=== PATIENT | female | born 1975 | race Caucasian/White ===

== ENCOUNTER → 2016-07-14 | Outpatient (CLI) | payer OTHER ==
[2016-07-14 16:25] LABS: EKG EKG PERFORMED
[2016-07-14 17:04] LABS: Basophils # (A) 0.1 k/uL (0-0.2); Basophils % (A) 1 %; CH 31.6; CHCM 33.6; Eosinophils # (A) 0.3 k/uL (0-0.7); Eosinophils % (A) 5 %; HCT 42.5 % (34.0-46.0); HDW 2.65; HGB 13.8 gm/dL (11.4-16.0); Luc # (Auto) 0.11; Luc % (Auto) 2; Lymphocytes # (A) 1.7 k/uL (1.0-4.8); Lymphocytes % (A) 29 %; MCH 30.6 pg (25.0-35.0); MCHC 32.4 g/dL (31.0-37.0); MCV 94.3 fL (80.0-100.0); Mean Platelet Volume 9.1; Monocytes # (A) 0.2 k/uL (0-1.0); Monocytes % (A) 4 %; Neutrophils # (A) 3.5 k/uL (1.3-7.7); Neutrophils % (A) 59 %; RBC 4.51 m/uL (3.80-5.40); RDW 12.4 % (11.5-15.5); WBC 5.8 k/uL (3.8-10.6); WBC (Perox) 5.89
[2016-07-14 17:19] LABS: ALT 43 U/L (9-52); AST 30 U/L (14-36); Alkaline Phosphatase 56 U/L (38-126); Anion Gap 11 mmol/L; Blood Urea Nitrogen 13 mg/dL (7-17); Calcium 8.9 mg/dL (8.4-10.2); Carbon Dioxide 29 mmol/L (22-30); Chloride 104 mmol/L (98-107); Glucose 116 mg/dL (74-99); Non-African American GFR(MDRD) >60 (>60 ml/min/1.73 sqM); Potassium 3.7 mmol/L (3.5-5.1); Sodium 144 mmol/L (137-145); Total Bilirubin 0.4 mg/dL (0.2-1.3); Total Protein 6.2 g/dL (6.3-8.2)
== END | disposition home or self-care (01) ==
LOC: LABPAT 16:11
PROVIDERS: ATTEND Surgery Plastic and Reconstructive Surgery
DX: Z01.818 Encounter for other preprocedural examination (principal)
CPT/HCPCS: 80053; 85025; 93005

== ENCOUNTER → 2016-07-22 | Outpatient (CLI) | payer OTHER | LOC: LABWHC1 10:24 | PROVIDERS: ATTEND Nurse Practitioner | DX: F31.5 Bipolar disorder, current episode depressed, severe, with psychotic features (principal) | CPT/HCPCS: 36415; 80183 ==

== ENCOUNTER 2016-07-25 08:36 | Observation (INO) | payer OTHER ==
[2016-07-14 14:53] VITALS: BMI 22.7
--- NOTE | 2016-07-25 06:14 | P.GSHP ---
History of Present Illness H&P Date: 07/25/16 DATE OF SERVICE: 07/25/2016 CHIEF COMPLAINT: Gastric bypass. HISTORY OF PRESENT ILLNESS: Jacinda Diamond is a 41-year-old female who is status post Misty-en-Y gastric bypass in June of 2015. Her lifetime highest weight was 309 pounds. Her ideal body weight is 5 foot 6 frame is 154 pounds. She has lost over 165 pounds. Percent excess weight loss is over 107%. Body mass index has been reduced from 50 down to 22.8. She comes in with history of recurrent panniculitis despite medical and prescribed treatment for over 1 year. Now she presents for further evaluation and management. Separately, she does have chronic lower back pain from degenerative disc disease. She does also have epigastric abdominal pain from a symptomatic hernia which had been present prior to her surgical intervention and bariatric procedures. PAST MEDICAL HISTORY: 1. Moderate obesity. 2. Anxiety. 3. Depression. 4. Osteoarthritis of the lower back. 5. Osteoarthritis of the bilateral hips. 6. Panniculitis. 7. Gastroesophageal reflux disease. 8. Posttraumatic stress disorder. 9. Neuropathy of the lower extremities. 10. Panniculitis. PAST SURGICAL HISTORY: 1. section. 2. Cholecystectomy. 3. Peg tube. 4. History tracheostomy secondary to vent-dependent respiratory failure. 5. Upper endoscopy with balloon dilatation. 6. Status post Misty-en-Y gastric bypass. 7. Diagnostic laparoscopy, lysis of adhesions. MEDICATIONS: 1. Lyrica. 2. Naproxen. 3. Amitriptyline. 4. [place]. 5. Neurontin. 6. Vitamin D. 7. Calcium. 8. Fioricet. 9. Multivitamin. 10. Prilosec. 11. Nystatin powder. 12. Thiamine. 13. Vitamin A. ALLERGIES: CODEINE, EGGS, GUAIFENESIN, VICODIN, DEMEROL, OXYCONTIN, PENICILLIN, DARVOCET, ASPIRIN. SOCIAL HISTORY: Former tobacco use. FAMILY HISTORY: Notable for morbid obesity including diabetes. REVIEW OF SYSTEMS: MUSCULOSKELETAL: Has severe lower back pain. CONSTITUTIONAL: Her lifetime highest weight was 309 pounds. Her ideal body weight is 5 foot 6 frame is 154 pounds. She has lost 165 pounds. Percent excess weight loss is [id number]%. Body mass index has been reduced from 50 down to 22.8. GASTROINTESTINAL: No reports of dumping syndrome. Resolved gastroesophageal reflux disease. Migraines, now resolved. SKIN: History of chronic panniculitis of the umbilicus and the abdomen. ENDOCRINE: No reports of diabetes or hypothyroidism. RESPIRATORY: Prior history of vent-dependent respiratory failure. No recent known history of pneumonia. Upper respiratory, resolution of obstructive sleep apnea. CARDIOVASCULAR: No reports of chest pain or palpitations. NEURO: No reports of stroke. Has pinched nerve of the lower back pending nerve ablation. PSYCH: No reports of psychosis; however, history of depression. HEMATOLOGIC: No recent history of coagulopathy or blood clots. PHYSICAL EXAM: VITAL SIGNS: 98.8, 77, 16, 118/81, 5 foot 6, 141 pounds. Body mass index of 22.8. Percent excess weight loss 109%. ABDOMEN: Soft with a palpable and epigastric ventral hernia approximately 4 cm. Pannus extends over pubis by 7 cm of hyperemia. Moderate to severe skin elastosis of the abdomen including bilateral upper extremities. GENERAL: Well-developed, pleasant female, no acute distress. HEENT: No sclerae icterus. Extraocular movements grossly intact. Well-healed scar from prior tracheostomy. No nasal drainage. RESPIRATORY: Nonlabored respirations. Equal bilateral excursions. CARDIOVASCULAR: Regular rate and regular rhythm. Palpable 2+ radial pulses. MUSCULOSKELETAL: No clubbing, cyanosis, or edema. NEURO: There are no focal or lateralizing signs. PSYCH: Appropriate affect. Alert and oriented to person, place and time. LABS: Bariatric metabolic panel obtained with hemoglobin normal at 13.2. Hemoglobin A1c was normal at 4.4. Iron was normal at 93. Total protein was low at 6.2. Ferritin was elevated at 196. Vitamin A was low at 29. Vitamin D low at 27.6. Copper low at 736. ASSESSMENT: 1. Morbid obesity due to excess caloric intake. 2. Body mass index reduced lifetime of 50 down to 22.8. 3. Status post Misty-en-Y gastric bypass. 4. Status post massive weight loss of buog461 pounds. 5. Panniculitis. 6. History of dysphagia, now resolved. 7. History of obstructive sleep apnea, improving. 8. Osteoarthritis of the lower back, slowly improving. 9. Osteoarthritis of the bilateral hips, improving. 10. Secondary hyperparathyroidism. 11. Copper deficiency. 12. Vitamin D deficiency. 13. Elevated Ferritin. 14. Elevated AST and ALT. 15. Panniculitis. 16. Epigastric incarcerated hernia. 17. Vitamin A deficiency. 18. Thiamine deficiency. 19. Copper deficiency. 20. Hypoalbuminemia. PLAN: 1. Her bariatric metabolic panel has been obtained demonstrating total protein which is fairly low despite her albumin remaining 3.9. We will recommend strict protein intake of over 65 to 70 gm daily. 2. She does have epigastric abdominal wall hernia, including moderate pannus, with panniculitis. She is being treated for panniculitis for well over 1-1/2 to 2 years. She will benefit from panniculectomy. 3. Inpatient hospitalization greater than 2 nights advised. 4. Deep venous thrombosis prophylaxis. 5. Antibiotic prophylaxis. 6. Benefits and risks of panniculectomy including bleeding, infection, flap failure, abdominal wall trauma, need for further surgery were reviewed in detail. 7. LINDA drain management was also reviewed. 8. Recommend correction of nutritional deficiencies with a vitamin A supplement of at least 8000 units daily or increasing carrots or cantaloupes. 9. Also recommend correction of vitamin D deficiency. 10. Also need correction of her copper deficiency as well. 11. Recommend an increase of multivitamin intake. 12. Also recommend cholecysteramine for her abdominal pain. Past Medical History Past Medical History: GERD/Reflux, Rheumatoid Arthritis (RA) Additional Past Medical History / Comment(s): migraines, bilateral neuropathy( legs and hands)- legs can give out causing falls, hx IBS, hx swine flu 2008- was vented, varicose veins, History of Any Multi-Drug Resistant Organisms: MRSA Date of last positivie culture/infection: 06/2009 MDRO Source:: LUNGS Past Surgical History: Bariatric Surgery, Section, Cholecystectomy, Tubal Ligation, Uterine Ablation Additional Past Surgical History / Comment(s): 06/22/15 Laparoscopic misty-en-y gastric bypass with EGD. PEG tube/later removed, Tracheostomy, Past Anesthesia/Blood Transfusion Reactions: Motion Sickness, Postoperative Nausea & Vomiting (PONV) Additional Past Anesthesia/Blood Transfusion Reaction / Comment(s): Pt states she has never received blood. Past Psychological History: Anxiety, Bipolar, Depression, PTSD Additional Psychological History / Comment(s): . Smoking Status: Former smoker Past Alcohol Use History: None Reported Additional Past Alcohol Use History / Comment(s): Pt started smoking in 1997 and quit in 2014-she was 1 ppd smoker. Past Drug Use History: None Reported - Past Family History Mother Family Medical History: No Reported History Additional Family Medical History / Comment(s): . Father Family Medical History: Hypertension Additional Family Medical History / Comment(s): Father is living. Medications and Allergies Home Medications Medication Instructions Recorded Confirmed Type Topiramate 50 mg PO BID 02/25/15 07/14/16 History Calcium Carbonate [Calcium] 600 mg PO BID 09/16/15 07/14/16 History Pregabalin [Lyrica] 75 mg PO BID 03/17/16 07/14/16 History Ergocalciferol [Vitamin D2 50,000 unit PO WE 04/14/16 07/14/16 History (DRISDOL)] Butalb/Acetaminophen/Caffeine 2 tab PO BID PRN 07/14/16 07/14/16 History [Fioricet 50-325-40] OXcarbazepine [Trileptal] 300 mg PO BID 07/14/16 07/14/16 History PARoxetine HCL [Paxil] 10 mg PO DAILY 07/14/16 07/14/16 History QUEtiapine [SEROquel] 50 mg PO HS 07/14/16 07/14/16 History Allergies Allergy/AdvReac Type Severity Reaction Status Date / Time guaifenesin [From Robitussin] Allergy WHEEZING Verified 07/14/16 14:37 FROM COUGH SYRUP WITH CODEINE meperidine HCl [From Demerol] Allergy "BECAME Verified 07/14/16 14:37 BELIGERENT" Milk Containing Products Allergy Nausea & Verified 07/14/16 14:37 [Dairy] Vomiting & Diarrhea aspirin AdvReac "MAKES Verified 07/14/16 14:37 BLOOD TOO THIN"
[~2016-07-25 08:36] MED LIST: ACETAMINOPHEN IV (For NPO) 1,000 MG in EMPTY BAG 1 BAG IVPB ONE; ACETAMINOPHEN TAB 500 MG TAB PO ONE; BUPIVACAINE LIPOSOME/PF 1.3% 20 ML, BUPIVACAIN-EPI 0.5%-1:200,000 25 ML, SODIUM CHLORID... MISCELLANE ONE; DEXAMETHASONE SOD PHOSPHATE 10 MG/ML 1 ML VIAL IV ONE; HEPARIN SODIUM,PORCINE 5,000 UNIT/ML 1 ML VIAL SQ ONE; LACTATED RINGERS 1,000 ML IV SCH; LIDOCAINE 1% 20 ML VIAL (10MG/ML) FOR IV START INTRADERMA PRN; ONDANSETRON 4 MG/2 ML VIAL IVP ONE; SCOPOLAMINE 1.5MG/72HR PATCH TRANSDERM ONE; ceFAZolin 2 GM in SODIUM CHLORIDE 0.9% 100 ML IVPB ONE
[2016-07-25] MEDS ORDERED: VANCOMYCIN 1,000 MG in SODIUM CHLORIDE 0.9% 250 ML IVPB ONE (09:00)
[2016-07-25] MEDS ORDERED: MIDAZOLAM 2 MG/2 ML VIAL IV ONE (10:54)
[2016-07-25] MEDS ORDERED: NEOSTIGMINE 1 MG/ML 10 ML VIAL ONE (11:01)
[2016-07-25] MEDS ORDERED: GLYCOPYRROLATE 0.2 MG/ML 2 ML VIAL ONE (11:01)
[2016-07-25] MEDS ORDERED: SUCCINYLCHOLINE CHLORIDE 100 MG/5 ML SYR IV ONE (11:01)
[2016-07-25] MEDS ORDERED: LIDOCAINE 1% INJ 10MG/ML (20 ML MDV) ONE (11:01)
[2016-07-25] MEDS ORDERED: fentaNYL (PF) 50 MCG/ML 2 ML AMP ONE (11:01)
[2016-07-25] MEDS ORDERED: PHENYLEPHRINE-0.9% NACL SYG 1 MG/10 ML SYRINGE ONE (11:01)
[2016-07-25] MEDS ORDERED: PROPOFOL 10 MG/ML 20 ML VIAL IV ONE (11:01)
[2016-07-25] MEDS ORDERED: HYDROmorphone (PF) 1 MG/ML ONE (11:01)
[2016-07-25] MEDS ORDERED: ROCURONIUM BROMIDE 10 MG/ML 10 ML VIAL IV ONE (11:01)
[2016-07-25] MEDS ORDERED: LACTATED RINGERS 1,000 ML IV ONE ×3 (11:55→13:51)
[2016-07-25] MEDS ORDERED: NALOXONE 0.4 MG/ML 1 ML VIAL IV PRN (14:18)
[2016-07-25] MEDS ORDERED: diphenhydrAMINE 50 MG/ML 1 ML VIAL IVP PRN (14:18)
--- NOTE | 2016-07-25 14:18 | P.PCN ---
Date of Procedure: 07/25/16 Preoperative Diagnosis: Panniculitis, excessive skin and subcutaneous tissue, central adiposity, status post massive weight loss over 170 pounds Postoperative Diagnosis: Same, ventral hernia, reducible 9 x 7 cm umbilical/midline Procedure(s) Performed: Panniculectomy, 4.5 pounds with ventral hernia repair, reducible, initial 9 x 7 cm with primary fascial imbrication Anesthesia: GETA, local Surgeon: Janie Mishra Estimated Blood Loss (ml): 600 Pathology: none sent Condition: stable Disposition: floor Operative Findings: Primary fascial indication with reduction of ventral hernia using bilateral muscular cutaneous flap advancement 10 cm long midabdomen, 4.5 pounds panniculectomy
[2016-07-25] MEDS ORDERED: HYDROcodone/APAP 5-325MG 1 EACH TAB PO PRN (14:22)
[2016-07-25] MEDS: HYDROmorphone 1 MG/ML 1 ML SYRINGE IVP PRN ×3 (14:42→17:33)
[2016-07-25] MEDS: 0.9% NACL WITH KCL 20 MEQ/L 1,000 ML IV SCH (17:48)
--- NOTE | 2016-07-25 19:23 | P.OP ---
Date of Procedure: 07/25/16 Description of Procedure: SURGEON: UZIEL THOMPSON MD PREOPERATIVE DIAGNOSES: 1. Morbid obesity due to excess caloric intake, resolved. 2. Body mass index reduced lifetime of 50 down to 22.8. 3. Status post Misty-en-Y gastric bypass. 4. Status post massive weight loss of over 165 pounds. 5. Panniculitis. 6. Osteoarthritis of the lower back, improving. 7. Osteoarthritis of the bilateral hips, improving. 8. Secondary hyperparathyroidism. 9. Copper deficiency. 10. Vitamin D deficiency. 11. Elevated Ferritin. 12. Epigastric initial ventral hernia. 13. Vitamin A deficiency. 14. Thiamine deficiency. 15. Copper deficiency. 16. Hypoalbuminemia. 17. Anxiety. 18. Depression. 19. Posttraumatic stress disorder. 20. Neuropathy of the lower extremities. 21. History of MRSA. 22. Epigastric ventral hernia. POSTOPERATIVE DIAGNOSES: 1. Morbid obesity due to excess caloric intake, resolved. 2. Body mass index reduced lifetime of 50 down to 22.8. 3. Status post Misty-en-Y gastric bypass. 4. Status post massive weight loss of over 165 pounds. 5. Panniculitis. 6. Osteoarthritis of the lower back, improving. 7. Osteoarthritis of the bilateral hips, improving. 8. Secondary hyperparathyroidism. 9. Copper deficiency. 10. Vitamin D deficiency. 11. Elevated Ferritin. 12. Epigastric initial ventral hernia. 13. Vitamin A deficiency. 14. Thiamine deficiency. 15. Copper deficiency. 16. Hypoalbuminemia. 17. Anxiety. 18. Depression. 19. Posttraumatic stress disorder. 20. Neuropathy of the lower extremities. 21. Epigastric ventral hernia, 9 x 7 cm initial and reducible. 22. Localized central adiposity. 23. Excess and redundant abdominal tissue. 24. History of previous MRSA infection. OPERATION: 1. Panniculectomy, 4.5 pounds. 2. Open repair of initial reducible ventral hernia 9 x 7 cm with bilateral musculofascial advancement, 10 cm. ANESTHESIA: General with 85 mL of Exparel with sensorcaine and normal saline mixture. ESTIMATED BLOOD LOSS: 600 mL SPECIMENS REMOVED: Pannus 4.5 pounds. COMPLICATIONS: None. CONDITION: Stable. DRAINS: Two #19 Andrew drains below abdominal flap extending through the pubis. OPERATIVE FINDINGS: 1. Pannus weighing 4.5 pounds, excised. 2. Initial reducible ventral hernia of 9 x 7 cm along the epigastrium and lower midline with bilateral musculofascial advancement, 10 cm. INDICATIONS: The patient is a 41-year-old female status post misty-en-y gastric bypass. She had moderate weight loss. Despite medical therapy with prescription powders such as Nystatin over 1 year, she has developed severe medical refractory panniculitis. Her body mass index has been reduced from approximately 50 down to 22.8. She reports medically refractory panniculitis. She had a ventral hernia of the lower abdomen and identified. Given her clinical symptoms, including massive weight loss, she elected for surgical intervention with a panniculectomy. Benefits and risks of the procedure including bleeding, infection, risk of flap failure were described at length. Informed consent was obtained. DESCRIPTION: In the preanesthesia care unit the patient was marked with an indelible marker. She had also been given heparin subcutaneously. The patient was brought into the operating room and laid in supine position. After general induction, a Hebert catheter was placed. The abdomen was then prepped and draped in standard sterile fashion using ChloraPrep. The skin was prepped as far laterally to the back, inferiorly to the upper thighs and superiorly to above the bilateral breasts. A timeout protocol was confirmed with the surgical team regarding patient's name , procedure to be performed, including preoperative medications. She had received vancomycin antibiotics. Once the time-out protocol was confirmed with the surgical team, the patient was re-marked with indelible marker whereby the midline of the xiphoid to the mons pubis was marked. The anterior/superior iliac spine along the bilateral hips was also marked. Approximately 8 cm above the pubis commissure a transverse incision was made for the inferior portion of the flap. Using a #10 blade, the incision was taken from the midline laterally to above the anterior/superior iliac spine, initially on the left side of the patient and then on the right side of the patient. Electro-Bovie cautery was used to control for hemostasis. The dissection was taken down to the level of the fascia. Landmarks used were the xiphoid process as well as the bilateral costal margins for the superior margin. Care was taken to avoid any creation of dog ears during the dissection. Once hemostasis was checked, a large ventral hernia fascial defect of 9 x 7 cm was identified unrelated to her bariatric procedure. During this dissection, the umbilicus was truncated at its fascial insertion. The umbilicus fascial excision was oversewn using 0 Prolene. Bilateral musculofascial advancement along the midline of the rectus muscle to the lateral insertion was performed obtaining 10 cm width for complete closure of her hernia and using fascial imbrication using #2 Ethibond starting from the xiphoid to pubis. The ventral hernia defect was completely repaired and closed. For postop analgesia , 85 mL of Exparel with sensorcaine and normal saline mixture was infiltrated along the midline and fascia. Hemostasis was once again checked with electro-Bovie cautery and all defects were addressed. Attention was now brought to closure of the flap. Using stainless steel skin emory, the midline was marked of the upper flap as well as the pubic commissure. The patient was placed in a flexed position of approximately 30 degrees at the hips. The pannus was extended inferiorly to the feet. The upper flap was created once the excess skin was excised. Care was taken to avoid any dog ears along the lateral aspect of the incisions. Once excised, the pannus was weighed at 4.5 pounds. The upper and lower flaps were reapproximated at the midline and then laterally to the skin with skin emory. Once reapproximated, the skin was closed in layers using 0 Vicryl for the superficial fascial system followed by running 3- 0 Monocryl for the deep dermis in a running subcuticular fashion. Prior to skin closure, two round #19 Andrew drains were placed underneath the flap and brought out just inferior to the incision along the pubis. Drain stitch using 2-0 nylon was placed. Once the incision was closed, bulb suction was attached. Hemostasis was checked. At the end of the procedure, the needle, sponge and instrument count was verified correct. Dermabond tape with Dermabond liquid was placed along the entire length of the incision. OptiFlow Aquacel Ag dressing was placed once dried along the incision. CHG Tegaderm was placed over the LINDA insertion sites. The patient was then transferred to a hospital bed in a beach chair position. An abdominal binder was placed and marked. The patient was taken to the postanesthesia care unit in stable condition, awake and extubated. Total time for procedure from skin to skin was 156 minutes. Patient was deemed an ASA2. The intraoperative findings were discussed with her who was pleased with the level of care.
[2016-07-25] MEDS: HYDROcodone/APAP 5-325MG 1 EACH TAB PO SCH ×2 (20:43→21:48)
[2016-07-25] MEDS: OXcarbazepine 300 MG TAB PO SCH (21:47)
[2016-07-25] MEDS: QUEtiapine 50 MG TAB PO SCH (21:47)
[2016-07-25] MEDS: PREGABALIN 75 MG CAP PO SCH (21:47)
[2016-07-25] MEDS: TOPIRAMATE 25 MG TAB PO SCH (21:48)
[2016-07-26] MEDS: 0.9% NACL WITH KCL 20 MEQ/L 1,000 ML IV SCH ×3 (02:37→20:54)
[2016-07-26] MEDS: HYDROmorphone 1 MG/ML 1 ML SYRINGE IVP PRN ×3 (02:38→13:24)
[2016-07-26] MEDS: HYDROcodone/APAP 5-325MG 1 EACH TAB PO SCH ×4 (05:47→23:51)
[2016-07-26 07:09] LABS: Basophils % (A) 1 %; CH 31.6; CHCM 34.5; Eosinophils # (A) 0.2 k/uL (0-0.7); Eosinophils % (A) 3 %; HCT 29.1 % (34.0-46.0); HDW 2.78; Luc # (Auto) 0.15; Luc % (Auto) 2; Lymphocytes # (A) 2.4 k/uL (1.0-4.8); Lymphocytes % (A) 31 %; MCH 30.7 pg (25.0-35.0); MCHC 33.3 g/dL (31.0-37.0); Mean Platelet Volume 9.3; Monocytes # (A) 0.4 k/uL (0-1.0); Monocytes % (A) 5 %; Neutrophils # (A) 4.6 k/uL (1.3-7.7); Neutrophils % (A) 59 %; RBC 3.16 m/uL (3.80-5.40); RDW 12.8 % (11.5-15.5); WBC 7.9 k/uL (3.8-10.6); WBC (Perox) 7.78
[2016-07-26 07:23] LABS: HGB 9.7 gm/dL (11.4-16.0)
[2016-07-26] MEDS: OXcarbazepine 300 MG TAB PO SCH ×2 (08:50→22:48)
[2016-07-26] MEDS: PARoxetine 10 MG TAB PO SCH (08:51)
[2016-07-26] MEDS: TOPIRAMATE 25 MG TAB PO SCH ×2 (08:51→22:48)
[2016-07-26] MEDS: PREGABALIN 75 MG CAP PO SCH ×2 (08:52→22:48)
[2016-07-26] MEDS: THIAMINE 100 MG TAB PO SCH (08:52)
[2016-07-26] MEDS: PANTOPRAZOLE 40 MG TABLET PO SCH (14:30)
--- NOTE | 2016-07-26 15:20 | P.PN ---
Subjective 41-year-old female being seen on rounds this afternoon is sitting up in bed. Patient does report continuing to have surgical pain. Patient is willing to restart her [place]. Patient states that she was on [place] at home for pain but stopped it about 6 weeks ago. Currently the patient has been receiving IV pain medication dilaudid Patient is postop from an open repair of initial reducible ventral hernia 9 x 7 cm with bilateral musculofascial advancement, 10 cm. currently has an abdominal binder in place with 2 Keith-Alas drains. Patient states she is tolerating the diet Objective - Vital Signs Vital signs: Vital Signs Temp 98.5 F 07/26/16 11:20 Pulse 64 07/26/16 11:20 Resp 16 07/26/16 11:20 BP 100/66 07/26/16 13:07 Pulse Ox 98 07/26/16 11:20 Intake & Output 07/25/16 07/26/16 07/26/16 18:59 06:59 18:59 Intake Total 3500 1680 250 Output Total 1143 810 45 Balance 2357 870 205 Weight 63.957 kg Intake: IV 3500 Oral 1680 250 Output: Drainage 43 60 45 left suprapubic 3 30 30 right suprapubic 40 30 15 Urine 500 750 Estimated Blood Loss 600 Other: Voiding Method Toilet # Voids 1 1 - Exam Physical exam 41-year-old female sitting up in bed talkative appears in no acute distress states pain medication IV dilaudid has been effective for pain control Lungs essentially clear adequate air movement on room air no cough noted Heart S1-S2 audible and regular Abdomen abdominal binder in place with [address] Keith-[address] in [address] soft not distended no reports of nausea vomiting Extremities no evidence of edema to the upper or lower extremities - Labs CBC & Chem 7: 07/26/16 05:40 Labs: Abnormal Lab Results - Last 24 Hours (Table) 07/26/16 Range/Units 05:40 RBC 3.16 L (3.80-5.40) m/uL Hgb 9.7 L D (11.4-16.0) gm/dL Hct 29.1 L (34.0-46.0) % Plt Count 133 L (150-450) k/uL Microbiology - Last 24 Hours (Table) 07/25/16 10:40 Nasal Screen MRSA/MSSA ([facility]) - Preliminary Nasal Swab Assessment and Plan Plan: impression Morbid obesity due to excess caloric intake, resolved. 2. Body mass index reduced lifetime of 50 down to 22.8. 3. Status post Dariana-en-Y gastric bypass. 4. Status post massive weight loss of over 165 pounds. 5. Panniculitis. 6. Osteoarthritis of the lower back, improving. 7. Osteoarthritis of the bilateral hips, improving. 8. Secondary hyperparathyroidism. 9. Copper deficiency. 10. Vitamin D deficiency. 11. Elevated Ferritin. 12. Epigastric initial ventral hernia. 13. Vitamin A deficiency. 14. Thiamine deficiency. 15. Copper deficiency. 16. Hypoalbuminemia. 17. Anxiety. 18. Depression. 19. Posttraumatic stress disorder. 20. Neuropathy of the lower extremities. 21. Epigastric ventral hernia, 9 x 7 cm initial and reducible. 22. Localized central adiposity. 23. Excess and redundant abdominal tissue. 24. History of previous MRSA infection 25 Panniculectomy, 4.5 pounds.jul 25 2015 26. Open repair of initial reducible ventral hernia 9 x 7 cm with bilateral musculofascial advancement, 10 cm. done on 07/25/2015 Plan Continue postop surgical care Pain control Resume home meds as appropriate Further recommendations pending Anticipate discharge in the next 24-48 hours The above dictated assessment and findings were discussed with [].dr Garcia Impression and the plan of care have been dictated as directed. Renu Locke nurse practitioner acting as a scribe for Dr. Garcia
--- NOTE | 2016-07-26 20:04 | P.PN ---
Progress Note - Text Please see nurse practitioner of which I agree. Patient is tolerating oral pain meds. She is ambulating at least 5 times daily. She reports mild pain along the right lower abdomen which is to be expected given her panniculectomy incision. Skin flap is viable. No signs of ecchymosis. Anticipate discharge tomorrow. Discharge instructions were reviewed for which she and her verbalized understanding.
[2016-07-26] MEDS ORDERED: VANCOMYCIN 1,250 MG in SODIUM CHLORIDE 0.9% 250 ML IVPB STA (20:18)
[2016-07-26] MEDS: QUEtiapine 50 MG TAB PO SCH (22:48)
[2016-07-27 00:43] VITALS: RESP 16
[2016-07-27] MEDS ORDERED: VANCOMYCIN 1,250 MG in SODIUM CHLORIDE 0.9% 250 ML IVPB SCH (06:00)
[2016-07-27] MEDS: 0.9% NACL WITH KCL 20 MEQ/L 1,000 ML IV SCH (06:07)
[2016-07-27] MEDS: HYDROcodone/APAP 5-325MG 1 EACH TAB PO SCH ×2 (06:29→10:44)
[2016-07-27 07:26] VITALS: BP 103/62; TEMP 97
[2016-07-27] MEDS: PANTOPRAZOLE 40 MG TABLET PO SCH (07:29)
[2016-07-27] MEDS: PREGABALIN 75 MG CAP PO SCH (08:11)
[2016-07-27] MEDS: TOPIRAMATE 25 MG TAB PO SCH (08:11)
[2016-07-27] MEDS: OXcarbazepine 300 MG TAB PO SCH (08:11)
[2016-07-27] MEDS: PARoxetine 10 MG TAB PO SCH (08:11)
[2016-07-27] MEDS: THIAMINE 100 MG TAB PO SCH (08:12)
[2016-07-27] MEDS ORDERED: ERGOCALCIFEROL 50,000 UNIT CAP PO SCH (09:00)
[2016-07-27] MEDS ORDERED: MAGNESIUM SULFATE-D5W PMX 1 GM in DEXTROSE/WATER 1 100ML.BAG IVPB STA (09:13)
[2016-07-27 09:53] VITALS: PULSE 54
--- NOTE | 2016-07-27 14:03 | P.DS ---
Providers Date of admission: 07/26/16 12:29 Expected date of discharge: 07/27/16 Attending physician: Janie Mishra Primary care physician: Stated None - Discharge Diagnosis(es) (1) S/P panniculectomy Status: Acute (2) MRSA (methicillin resistant Staphylococcus aureus) colonization Status: Acute (3) Ventral hernia without obstruction or gangrene Status: Acute (4) S/P ventral herniorrhaphy Status: Acute (5) Weight loss, intentional Status: Acute (6) Bariatric surgery status Status: Acute Hospital Course: POSTOPERATIVE DIAGNOSES: 1. Morbid obesity due to excess caloric intake, resolved. 2. Body mass index reduced lifetime of 50 down to 22.8. 3. Status post Misty-en-Y gastric bypass. 4. Status post massive weight loss of over 165 pounds. 5. Panniculitis. 6. Osteoarthritis of the lower back, improving. 7. Osteoarthritis of the bilateral hips, improving. 8. Secondary hyperparathyroidism. 9. Copper deficiency. 10. Vitamin D deficiency. 11. Elevated Ferritin. 12. Epigastric initial ventral hernia. 13. Vitamin A deficiency. 14. Thiamine deficiency. 15. Copper deficiency. 16. Hypoalbuminemia. 17. Anxiety. 18. Depression. 19. Posttraumatic stress disorder. 20. Neuropathy of the lower extremities. 21. Epigastric ventral hernia, 9 x 7 cm initial and reducible. 22. Localized central adiposity. 23. Excess and redundant abdominal tissue. 24. History of previous MRSA infection. COURSE: The patient is a 41-year-old female status post misty-en-y gastric bypass. She had moderate weight loss over 165 pounds. Despite medical therapy with prescription powders such as Nystatin over 1 year, she developed severe medical refractory panniculitis. Her body mass index has been reduced from approximately 50 down to 22.8. She reports medically refractory panniculitis. She had a ventral hernia of the lower abdomen. Given her clinical symptoms, including massive weight loss, she elected for surgical intervention with a panniculectomy. She underwent a ventral hernia repair with panniculectomy with excision of 4.5 pounds. Postoperatively her pain was controlled with oral pain meds. She was ambulating. She was tolerating diet. Discharge instructions were reviewed for which her and her verbalized understanding. No showering until LINDA drains are discontinued. She'll follow-up in the bariatric center in 24-48 hours. Ambulating frequently was also advised to minimize risk for blood clots. Pertinent Studies: None. Procedures: OPERATION: 1. Panniculectomy, 4.5 pounds. 2. Open repair of initial reducible ventral hernia 9 x 7 cm with bilateral musculofascial advancement, 10 cm. Patient Condition at Discharge: Stable Plan - Discharge Summary New Discharge Prescriptions: Hydrocodone/Acetaminophen [[place] 5-325] 1 - 2 each PO Q6HR PRN #60 tab PRN Reason: Pain Discharge Medication List Topiramate 50 mg PO BID 02/25/15 [History] Calcium Carbonate [Calcium] 600 mg PO BID 09/16/15 [History] Thiamine HCl [Vitamin B-1] 100 mg PO DAILY #30 tablet 10/07/15 [Rx] Pregabalin [Lyrica] 75 mg PO BID 03/17/16 [History] Ergocalciferol [Vitamin D2 (DRISDOL)] 50,000 unit PO WE 04/14/16 [History] Omeprazole 40 mg PO DAILY #90 capsule.dr 04/15/16 [Rx] Butalb/Acetaminophen/Caffeine [Fioricet 50-325-40] 2 tab PO BID PRN 07/14/16 [ History] OXcarbazepine [Trileptal] 300 mg PO BID 07/14/16 [History] PARoxetine HCL [Paxil] 10 mg PO DAILY 07/14/16 [History] QUEtiapine [SEROquel] 50 mg PO HS 07/14/16 [History] Hydrocodone/Acetaminophen [[place] 5-325] 1 - 2 each PO Q6HR PRN #60 tab 07/26/16 [Rx] Follow up Appointment(s)/Referral(s): Janie Mishra MD [STAFF PHYSICIAN] - 07/28/16 10:40 am (Bariatric center) Patient Instructions/Handouts: Keith-Alas Drain Care (GEN), Belt Lipectomy ( DC), Abdominal Binder (DC) Activity/Diet/Wound Care/Special Instructions: No lifting over 4 pounds in 4 weeks. Do not shower. May sponge bath. Maintain protein intake of overt 75 g daily. Discharge Disposition: HOME SELF-CARE
--- NOTE | 2016-07-27 14:03 | P.PN ---
Subjective Principal diagnosis: Status post panniculectomy Patient is tolerating diet. Pain is well-controlled. LINDA instructions understood. Objective - Vital Signs Vital signs: Vital Signs Temp 97.0 F L 07/27/16 07:00 Pulse 54 L 07/27/16 08:00 Resp 16 07/27/16 08:00 BP 103/62 07/27/16 07:00 Pulse Ox 100 07/27/16 11:01 Intake & Output 07/26/16 07/27/16 07/27/16 18:59 06:59 18:59 Intake Total 250 800 250 Output Total 110 890 Balance 140 -90 250 Intake: IV 800 0.9% NaCl with KCl 20 Meq 800 /l 1,000 ml @ 100 mls/hr IV .Q10H EDGAR Rx#: [id number] Oral 250 250 Output: Drainage 110 90 left suprapubic 70 50 right suprapubic 40 40 Urine 800 Other: Voiding Method Toilet Toilet Toilet # Voids 1 1 - Exam GENERAL: Well developed and in no acute distress. Pleasant. HEENT: No sclera icterus. Extraocular movements grossly intact. Moist buccal mucosa. Head is atraumatic, normocephalic. Hears conversational speech. No nasal drainage. NECK: Supple without lymphadenopathy. No JV distention. CHEST: Non-labored respirations and equal bilateral excursions. CARDIOVASCULAR: Regular rate and rhythm. Palpable 2+ radial pulses. ABDOMEN: Soft, nontender. Nondistended. Dressings clean dry and intact. Abdominal binder present. MUSCULOSKELETAL: No clubbing, cyanosis or edema. NEUROLOGIC: No focal or lateralizing signs. PSYCH: Appropriate affect. Alert and oriented to person, place and time. - Labs CBC & Chem 7: 07/26/16 05:40 Labs: Microbiology - Last 24 Hours (Table) 07/25/16 10:40 Nasal Screen MRSA/MSSA ([facility]) - Final Nasal Swab Assessment and Plan (1) S/P panniculectomy Status: Acute (2) MRSA (methicillin resistant Staphylococcus aureus) colonization Status: Acute (3) Ventral hernia without obstruction or gangrene Status: Acute (4) S/P ventral herniorrhaphy Status: Acute (5) Weight loss, intentional Status: Acute (6) Bariatric surgery status Status: Acute Plan: 1. Discharged home with follow up with the bariatric center tomorrow.
[2016-07-28] MEDS ORDERED: VANCOMYCIN TROUGH DUE 1 EACH MISC MISCELLANE ONE (05:00)
== END 2016-07-27 13:41 | disposition home or self-care (01) ==
LOC: OR 08:36 → 6PED 14:06 → OR 07-26 12:29 → 6PED 07-26 12:29 → 3SUR 07-26 22:08
PROVIDERS: ADMIT Surgery Plastic and Reconstructive Surgery; ATTEND Surgery Plastic and Reconstructive Surgery
DX: M79.3 Panniculitis, unspecified (principal); Z22.322 Carrier or suspected carrier of Methicillin resistant Staphylococcus aureus; K43.9 Ventral hernia without obstruction or gangrene; R63.4 Abnormal weight loss; E66.01 Morbid (severe) obesity due to excess calories; Z68.22 Body mass index [BMI] 22.0-22.9, adult; F41.9 Anxiety disorder, unspecified; F32.9 Major depressive disorder, single episode, unspecified; G47.33 Obstructive sleep apnea (adult) (pediatric); N25.81 Secondary hyperparathyroidism of renal origin; E61.0 Copper deficiency; E55.9 Vitamin D deficiency, unspecified; R79.89 Other specified abnormal findings of blood chemistry; E50.9 Vitamin A deficiency, unspecified; E51.9 Thiamine deficiency, unspecified; E88.09 Other disorders of plasma-protein metabolism, not elsewhere classified; R94.5 Abnormal results of liver function studies; M06.9 Rheumatoid arthritis, unspecified; M16.0 Bilateral primary osteoarthritis of hip; M47.9 Spondylosis, unspecified; K21.9 Gastro-esophageal reflux disease without esophagitis; F43.10 Post-traumatic stress disorder, unspecified; G62.9 Polyneuropathy, unspecified; Z98.84 Bariatric surgery status; Z87.891 Personal history of nicotine dependence; Z83.3 Family history of diabetes mellitus; Z86.14 Personal history of Methicillin resistant Staphylococcus aureus infection; Z79.899 Other long term (current) drug therapy; Z88.5 Allergy status to narcotic agent; Z88.8 Allergy status to other drugs, medicaments and biological substances; Z82.49 Family history of ischemic heart disease and other diseases of the circulatory system
CPT/HCPCS: 94760; 81025; 83735; 85025; 87070; 15830; 49560; G0378 ×3; J2250; J3370 ×3; J1644; J1100; J2710; J2405 ×2; J2001; J3010; J1170 ×2; J3475; J2370; J0330; C9290; J2704; 96365; 96366; 96375

== ENCOUNTER → 2016-07-28 | Outpatient (CLI) | payer OTHER ==
[2016-07-28 11:18] VITALS: RESP 20; BMI 22.9
[2016-07-28 11:49] VITALS: BP 104/71; PULSE 113; TEMP 98.6
--- NOTE | 2016-08-07 20:51 | P.PN ---
Progress Note - Text DATE OF SERVICE: 07/28/2016 CHIEF COMPLAINT: Status post panniculectomy. HISTORY OF PRESENT ILLNESS: Jacinda Diamond a 41-year-old female, status post panniculectomy on 07/26/2016. She now postop day #2. Actually, her pain has been fairly well-controlled. She complains of some discomfort along the right hip area. She is tolerating diet. No reports of fevers or chills. PHYSICAL EXAM: VITAL SIGNS: 98.6, 113, 20, 104/71, 5 foot 6, 142 pounds. Body mass index of 22.9. ABDOMEN: Dressings were discontinued. No signs of infection, cellulitis or flap dehiscence or failure. JPs are serosanguineous. Mild tenderness along the incision site along the right lower quadrant as to be expected. MUSCULOSKELETAL: No clubbing, cyanosis, or edema. GENERAL: Well-developed, pleasant female, no acute distress. HEENT: No sclerae icterus. Extraocular movements grossly intact. Well-healed scar from prior tracheostomy. No nasal drainage. RESPIRATORY: Nonlabored respirations. Equal bilateral excursions. CARDIOVASCULAR: Regular rate and regular rhythm. Palpable 2+ radial pulses. NEURO: There are no focal or lateralizing signs. PSYCH: Appropriate affect. Alert and oriented to person, place and time. ASSESSMENT: 1. Status post panniculectomy. 2. History of panniculitis, resolved. 3. Status post massive weight loss 167 pounds. 4. Body mass index reduced from 50 down to 22.9. 5. History of gastric bypass. PLAN: 1. Clinically on exam, no recurrence of lower abdominal wall hernia or flap failure was identified. 2. Her LINDA outputs are still over 30 mL daily. She will continue her JPs at least for another week with a followup in the [facility] in one week. 3. Her dressings were discontinued with the exception of the LINDA sites with CHG Tegaderm which were placed. 4. Goal protein intake of over 60 gm daily was also reinforced. 5. Overall, she is doing extremely well achieving over 108% excess weight loss.
== END | disposition home or self-care (01) ==
LOC: BARWHC3 10:40
PROVIDERS: ATTEND Surgery Plastic and Reconstructive Surgery
DX: Z48.815 Encounter for surgical aftercare following surgery on the digestive system (principal); Z98.84 Bariatric surgery status; M79.3 Panniculitis, unspecified; Z68.22 Body mass index [BMI] 22.0-22.9, adult
CPT/HCPCS: 99212

== ENCOUNTER → 2016-08-01 | Outpatient (CLI) | payer OTHER ==
[2016-08-01 12:08] VITALS: BP 130/74; PULSE 99; RESP 16; TEMP 98.3; BMI 22.4
--- NOTE | 2016-08-01 21:01 | PN ---
DATE OF SERVICE: 08/01/2016. CHIEF COMPLAINT: Follow-up panniculectomy. HISTORY OF PRESENT ILLNESS: Jacinda Diamond is a pleasant 41-year-old female who is status post panniculectomy on 07/25/2016. She is almost one week out. Her pain has been well controlled. Her LINDA outputs is now averaging less than 30 mL daily per drain. No reports of fevers or chills. No reports of increased redness along her incisions. No reports of rash or erythema. PHYSICAL EXAM: VITAL SIGNS: 98.3, 99, 16, 130/74, 5 foot 6, 63.106 kg, 139 pounds. BMI 22.9 ABDOMEN: All drains were discontinued. CHG Tegaderm was placed over the insertion site. No signs of flap failure. LINDA drains were discontinued. MUSCULOSKELETAL: No clubbing, cyanosis, or edema. GENERAL: Well-developed, pleasant female, no acute distress. HEENT: No sclerae icterus. Extraocular movements grossly intact. Well-healed scar from prior tracheostomy. No nasal drainage. RESPIRATORY: Nonlabored respirations. Equal bilateral excursions. CARDIOVASCULAR: Regular rate and regular rhythm. Palpable 2+ radial pulses. NEURO: There are no focal or lateralizing signs. PSYCH: Appropriate affect. Alert and oriented to person, place and time. ASSESSMENT: 1. History of panniculitis resolved. 2. Status post panniculectomy. 3. Status post massive weight loss 167 pounds. 4. Status post Dariana-En-Y gastric bypass. 5. Body mass index reduced from 50 down to 22.9. PLAN: 1. Clinically she is doing well. 2. She is at risk for developing postoperative seroma as to be expected. 3. I have asked her to wear abdominal binder at all times except to shower. 4. Recommend follow-up in one week for seromas surveillance. ILENE
--- NOTE | 2016-08-07 21:12 | P.PN ---
Progress Note - Text DATE OF SERVICE: 08/01/2015. CHIEF COMPLAINT: Follow-up panniculectomy. HISTORY OF PRESENT ILLNESS: Jacinda Diamond is a pleasant 41-year-old female who is status post panniculectomy on 07/26/2016. She is almost one week out. Her pain has been well controlled. Her LINDA outputs is now averaging less than 30 mL daily per drain. No reports of fevers or chills. No reports of increased redness along her incisions. No reports of rash or erythema. PHYSICAL EXAM: VITAL SIGNS: 98.3, 99, 16, 130/74, 5 foot 6, 63.106 kg, 139 pounds. BMI 22.5. ABDOMEN: All drains were discontinued. CHG Tegaderm was placed over the insertion site. No signs of flap failure. LINDA drains were discontinued. MUSCULOSKELETAL: No clubbing, cyanosis, or edema. GENERAL: Well-developed, pleasant female, no acute distress. HEENT: No sclerae icterus. Extraocular movements grossly intact. Well-healed scar from prior tracheostomy. No nasal drainage. RESPIRATORY: Nonlabored respirations. Equal bilateral excursions. CARDIOVASCULAR: Regular rate and regular rhythm. Palpable 2+ radial pulses. NEURO: There are no focal or lateralizing signs. PSYCH: Appropriate affect. Alert and oriented to person, place and time. ASSESSMENT: 1. History of panniculitis resolved. 2. Status post panniculectomy. 3. Status post massive weight loss 167 pounds. 4. Status post Dariana-En-Y gastric bypass. 5. Body mass index reduced from 50 down to 22.5. PLAN: 1. Clinically she is doing well. 2. She is at risk for developing postoperative seroma as to be expected. 3. I have asked her to wear abdominal binder at all times except to shower. 4. Recommend follow-up in one week for seromas surveillance.
== END | disposition home or self-care (01) ==
LOC: BARWHC3 10:58
PROVIDERS: ATTEND Surgery Plastic and Reconstructive Surgery
DX: Z48.815 Encounter for surgical aftercare following surgery on the digestive system (principal); Z98.84 Bariatric surgery status
CPT/HCPCS: 99211

== ENCOUNTER → 2016-08-08 | Outpatient (CLI) | payer OTHER ==
[2016-08-08 11:08] VITALS: BP 121/73; PULSE 61; RESP 16; TEMP 98.2; BMI 21.7
--- NOTE | 2016-08-08 21:57 | P.PN ---
Progress Note - Text DATE OF SERVICE: 08/08/2016 CHIEF COMPLAINT: Status post panniculectomy. HISTORY OF PRESENT ILLNESS: Jacinda Diamond a 41-year-old female, status post panniculectomy on 07/26/2016. Her highest weight was 309 pounds. She has history of a gastric bypass, June 2015. Today she comes in 134 pounds. Since her surgery, she lost 6 pounds. Her LINDA drain was discontinued 1 week ago. She denies any increased abdominal pain or increased abdominal swelling. She has been wearing her abdominal binder at all times. No reports of fevers or chills. No she presents for further evaluation and management. Her total left, weight loss is now 175 pounds. PHYSICAL EXAM: VITAL SIGNS: 98.2, 61, 16, 121/73, 5 foot 6, 134 pounds. Body mass index of 21.7. ABDOMEN: Soft, nondistended, nontender. No palpable abdominal wall seroma. No signs of infection or cellulitis. MUSCULOSKELETAL: No clubbing, cyanosis, or edema. GENERAL: Well-developed, pleasant female, no acute distress. HEENT: No sclerae icterus. Extraocular movements grossly intact. Well-healed scar from prior tracheostomy. No nasal drainage. RESPIRATORY: Nonlabored respirations. Equal bilateral excursions. CARDIOVASCULAR: Regular rate and regular rhythm. Palpable 2+ radial pulses. NEURO: There are no focal or lateralizing signs. PSYCH: Appropriate affect. Alert and oriented to person, place and time. ASSESSMENT: 1. Status post panniculectomy. 2. History of panniculitis, resolved. 3. Status post massive weight loss 175 pounds. 4. Body mass index reduced from 50 down to 21.7. 5. History of gastric bypass. PLAN: 1. She is doing well. 2. On exam she has no abdominal wall seroma. 3. She'll continue to wear her abdominal binder at all times. 4. Goal protein intake over 65 g advised. 5. Follow-up in 2 weeks. 6. She will continue to observe any change on her abdominal exam.
== END | disposition home or self-care (01) ==
LOC: BARWHC3 10:45
PROVIDERS: ATTEND Surgery Plastic and Reconstructive Surgery
DX: Z48.815 Encounter for surgical aftercare following surgery on the digestive system (principal); Z98.84 Bariatric surgery status; Z68.21 Body mass index [BMI] 21.0-21.9, adult
CPT/HCPCS: 99211

== ENCOUNTER → 2016-08-25 | Outpatient (CLI) | payer OTHER ==
[2016-08-25 11:46] VITALS: RESP 16; BMI 20.5
--- NOTE | 2016-10-16 21:12 | P.PN ---
Progress Note - Text DATE OF SERVICE: 08/25/2016 CHIEF COMPLAINT: Followup panniculectomy. HISTORY OF PRESENT ILLNESS: Jacinda Diamond is a 41-year-old female who is status post panniculectomy of 07/26/2016. She is now one month out. Her highest weight in the program was 309 pounds. Today she comes in weighing 127 pounds. Her lifetime weight loss is 182 pounds. Her ideal body weight for a 5 foot 6 frames is 154 pounds. She has achieved 117% excess weight loss. Body mass index is reduced from 50 down to 20.6. Total BMI point reduction is 29.3. She has lost another 7 pounds in approximately 3 weeks. No reports of abdominal pain. PHYSICAL EXAM: VITAL SIGNS: Afebrile, respirate respiratory rate of 16. The rest of vital signs stable. At her height of 5 foot 6, She weighs 127 pounds. Body mass index of 20.6. ABDOMEN: Soft, nontender, nondistended. No palpable incisional hernias. All incisions granulating. MUSCULOSKELETAL: No clubbing, cyanosis, or edema. GENERAL: Well-developed, pleasant female, no acute distress. HEENT: No sclerae icterus. Extraocular movements grossly intact. Well-healed scar from prior tracheostomy. No nasal drainage. RESPIRATORY: Nonlabored respirations. Equal bilateral excursions. CARDIOVASCULAR: Regular rate and regular rhythm. Palpable 2+ radial pulses. NEURO: There are no focal or lateralizing signs. PSYCH: Appropriate affect. Alert and oriented to person, place and time. ASSESSMENT: 1. Morbid obesity due to excess calories, completely resolved. 2. Body mass index reduced from 50 down to 20.6. 3. Status post massive weight loss of 182 pounds lifetime. 4. Status post panniculectomy for history of panniculitis. PLAN: 1. She has done extremely well. However, I have cautioned her for any additional weight loss. 2. I have recommended incorporating healthy fats as to stabilize her weight loss.
== END | disposition home or self-care (01) ==
LOC: BARWHC3 10:13
PROVIDERS: ATTEND Surgery Plastic and Reconstructive Surgery
DX: Z71.3 Dietary counseling and surveillance (principal); E66.01 Morbid (severe) obesity due to excess calories; Z68.20 Body mass index [BMI] 20.0-20.9, adult
CPT/HCPCS: 97803; G0463; 99211

== ENCOUNTER 2016-09-15 13:03 | Emergency (ER) | payer OTHER ==
[2016-09-15] MEDS ORDERED: FAMOTIDINE 20 MG/2 ML VIAL IV STA (14:01)
[2016-09-15] MEDS ORDERED: SODIUM CHLORIDE 0.9% 500 ML IV STA (14:01)
[2016-09-15] MEDS ORDERED: SODIUM CHLORIDE 0.9% 1,000 ML IV STA (14:01)
[2016-09-15] MEDS ORDERED: methylPREDNISolone SOD SUCCI 125 MG/2 ML VIAL IV STA (14:01)
[2016-09-15 14:48] LABS: Basophils % (A) 1 %; CH 31.5; CHCM 34.2; Eosinophils # (A) 0.2 k/uL (0-0.7); Eosinophils % (A) 4 %; HCT 38.9 % (34.0-46.0); HDW 2.86; Luc # (Auto) 0.12; Luc % (Auto) 2; Lymphocytes # (A) 1.5 k/uL (1.0-4.8); Lymphocytes % (A) 25 %; MCH 31.1 pg (25.0-35.0); MCHC 33.7 g/dL (31.0-37.0); MCV 92.3 fL (80.0-100.0); Mean Platelet Volume 8.5; Monocytes # (A) 0.3 k/uL (0-1.0); Monocytes % (A) 5 %; Neutrophils # (A) 3.9 k/uL (1.3-7.7); Neutrophils % (A) 65 %; RBC 4.21 m/uL (3.80-5.40); WBC 6.1 k/uL (3.8-10.6); WBC (Perox) 6.03
[2016-09-15 14:54] LABS: HGB 13.1 gm/dL (11.4-16.0)
[2016-09-15 14:58] LABS: ALT 33 U/L (9-52); AST 26 U/L (14-36); Alkaline Phosphatase 47 U/L (38-126); Anion Gap 9 mmol/L; Blood Urea Nitrogen 10 mg/dL (7-17); Calcium 9.3 mg/dL (8.4-10.2); Carbon Dioxide 27 mmol/L (22-30); Chloride 107 mmol/L (98-107); Glucose 70 mg/dL (74-99); Non-African American GFR(MDRD) >60 (>60 ml/min/1.73 sqM); Potassium 3.4 mmol/L (3.5-5.1); Sodium 143 mmol/L (137-145); Total Bilirubin 0.4 mg/dL (0.2-1.3); Total Protein 6.3 g/dL (6.3-8.2)
--- NOTE | 2016-09-15 15:24 | CT ---
EXAMINATION TYPE: CT brain wo con DATE OF EXAM: 09/15/2016 2:58 PM COMPARISON: NONE INDICATION: Possible medication reaction. Headache and facial swelling. DLP: 909.40 mGycm, Automated exposure control for dose reduction was used. CONTRAST: None CT of the brain is performed utilizing 3 mm thick sections through the posterior fossa and 3 mm thick sections through the remaining calvarium. Study is performed within 24 hours of arrival to the hosp [facility]. No abnormal hyperdensity is present to suggest an acute intracranial hemorrhage. No mass lesion is evident. No acute infarcts are evident. Ventricles and sulci are appropriate for the patient age. Paranasal sinuses and mastoid air cells within the [id number] are clear. IMPRESSIONS: 1. Normal CT Brain
--- NOTE | 2016-09-15 16:25 | ED ---
Allergic Reaction HPI - General Chief complaint: Allergic Reaction Stated complaint: allergic reaction Time Seen by Provider: 09/15/16 13:39 Source: patient Mode of arrival: ambulatory Limitations: no limitations - History of Present Illness Initial Comments: Presented with some swelling of the lips, she feels her tongue is swollen, both lips and tongue are tingly. She thinks she is having ALLERGIC reaction though she denies any tightening of the throat or shortness of the breath and she did not notice any of the hives anywhere, she feels lightheaded unable to focus denies any hives anywhere. He did start new medications for her migraine, that is Zonisamide. He also started Lyrica a few days ago though she had used Lyrica for 2 years in the past and she never had any ALLERGIC problem with the Lyrica. Denies any headaches no neck stiffness no chest pain or shortness of breath or abdominal pain no frequency urgency dysuria - Related Data Home Medications Medication Instructions Recorded Confirmed Pregabalin [Lyrica] 75 mg PO BID 03/17/16 09/15/16 Butalb/Acetaminophen/Caffeine 1 - 2 tab PO Q8H PRN 07/14/16 09/15/16 [Fioricet 50-325-40] OXcarbazepine [Trileptal] 300 mg PO BID 07/14/16 09/15/16 PARoxetine HCL [Paxil] 10 mg PO DAILY 07/14/16 09/15/16 QUEtiapine [SEROquel] 50 mg PO HS 07/14/16 09/15/16 Docusate [Colace] 200 mg PO HS 09/15/16 09/15/16 Zonisamide [Zonegran] 200 mg PO HS 09/15/16 09/15/16 Previous Rx's Medication Instructions Recorded Omeprazole 40 mg PO DAILY #90 capsule. 04/15/16 Loratadine [Claritin] 10 mg PO DAILY #10 tablet 09/15/16 Ranitidine HCl [Zantac] 150 mg PO BID #20 tab 09/15/16 predniSONE 50 mg PO DAILY #5 tab 09/15/16 Allergies Allergy/AdvReac Type Severity Reaction Status Date / Time meperidine HCl [From Demerol] Allergy Severe "BECAME Verified 09/15/16 14:14 BELIGERENT" Milk Containing Products Allergy Severe Nausea & Verified 09/15/16 14:14 [Dairy] Vomiting & Diarrhea guaifenesin [From Robitussin] Allergy Mild WHEEZING Verified 09/15/16 14:14 FROM COUGH SYRUP WITH CODEINE codeine Allergy Unknown Unknown Verified 09/15/16 14:14 aspirin AdvReac "MAKES Verified 09/15/16 14:14 BLOOD TOO THIN" Review of Systems ROS Statement: Those systems with pertinent positive or pertinent negative responses have been documented in the HPI. ROS Other: All systems not noted in ROS Statement are negative. Past Medical History Past Medical History: GERD/Reflux, Rheumatoid Arthritis (RA) Additional Past Medical History / Comment(s): migraines, bilateral neuropathy( legs and hands)- legs can give out causing falls, hx IBS, hx swine flu 2008- was vented, varicose veins, History of Any Multi-Drug Resistant Organisms: MRSA Date of last positivie culture/infection: 06/2009 MDRO Source:: LUNGS Past Surgical History: Bariatric Surgery, Section, Cholecystectomy, Hernia Repair, Tubal Ligation, Uterine Ablation Additional Past Surgical History / Comment(s): 06/22/15 Laparoscopic misty-en-y gastric bypass with EGD. PEG tube/later removed, Tracheostomy 2008 when she had the swine flu. Panniculectomy 07/25/16 Past Anesthesia/Blood Transfusion Reactions: Motion Sickness, Postoperative Nausea & Vomiting (PONV) Additional Past Anesthesia/Blood Transfusion Reaction / Comment(s): Pt states she has never received blood. Past Psychological History: Anxiety, Bipolar, Depression, PTSD Additional Psychological History / Comment(s): . Smoking Status: Former smoker Past Alcohol Use History: None Reported Additional Past Alcohol Use History / Comment(s): Pt started smoking in 1997 and quit in 2014-she was 1 ppd smoker. Past Drug Use History: None Reported - Past Family History Mother Family Medical History: Asthma, Congestive Heart Failure (CHF), COPD, Diabetes Mellitus, GERD/Reflux, Hypertension, Pneumonia, Sleep Apnea/CPAP/BIPAP Additional Family Medical History / Comment(s): varicose veins, enlarged heart. Father Family Medical History: Hypertension Additional Family Medical History / Comment(s): Father is living. General Exam - General Exam Comments Initial Comments: General: The patient is awake and alert, in no distress, and does not appear acutely ill. GCS is 15 Skin: Skin is warm and dry and no rashes or lesions are noted. Eye: Pupils are equal, round and reactive to light, extra-ocular movements are intact; there is normal conjunctiva bilaterally. Ears, nose, mouth and throat: Tongue and lips are swollen, no hives noticed no swelling or edema noticed in the oropharynx Neck: The neck is supple, there is no tenderness or JVD. Cardiovascular: There is a regular rate and rhythm. No murmur, rub or gallop is appreciated. Respiratory: To auscultation bilateral, no wheezing no rhonchi no distress respiratory hill noticed Gastrointestinal: Soft, non-distended, non-tender abdomen without masses or organomegaly noted. There is no rebound or guarding present. Bowel sounds are unremarkable. Back: There is no tenderness to palpation in the midline. There is no obvious deformity. Musculoskeletal: Normal ROM, no tenderness, There is no pedal edema. There is no calf tenderness or swelling. No cords were appreciated. Neurological: CN II-XII intact, Cranial nerves III through XII are intact. There are no obvious motor or sensory deficits. Coordination appears grossly intact. Speech is normal. Psychiatric: Cooperative, appropriate mood & affect, normal judgment. Limitations: no limitations Course Vital Signs 09/15/16 09/15/16 09/15/16 13:11 16:29 16:44 Temperature 97.5 F L 97.9 F Pulse Rate 92 59 L Pulse Rate [ 56 L Right Sitting] Pulse Rate [ 60 Right Standing] Pulse Rate [ 58 L Right Supine] Respiratory 18 18 16 Rate Blood Pressure 148/89 110/69 Blood Pressure 118/75 [Left Arm Sitting] Blood Pressure 116/80 [Left Arm Standing] Blood Pressure 109/66 [Left Arm Supine] O2 Sat by Pulse 100 100 100 Oximetry Reviewed her labs, head CT and the findings were discussed with the patient she feels better, will check orthostatics, A. fib that spine there were discharge home Orthostatics were checked, they are negative she maintain her systolic blood pressure very well planing it was 109 systolic and standing was 116 she be discharged home on prednisone and Zantac and Claritin and she is advised come back if symptoms get worse Medical Decision Making - Lab Data Result diagrams: 09/15/16 14:33 09/15/16 14:33 Lab Results 09/15/16 09/15/16 Range/Units 14:33 14:33 WBC 6.1 (3.8-10.6) k/uL RBC 4.21 (3.80-5.40) m/uL Hgb 13.1 D (11.4-16.0) gm/dL Hct 38.9 (34.0-46.0) % MCV 92.3 (80.0-100.0) fL MCH 31.1 (25.0-35.0) pg MCHC 33.7 (31.0-37.0) g/dL RDW 12.0 (11.5-15.5) % Plt Count 148 L (150-450) k/uL Neutrophils % 65 % Lymphocytes % 25 % Monocytes % 5 % Eosinophils % 4 % Basophils % 1 % Neutrophils # 3.9 (1.3-7.7) k/uL Lymphocytes # 1.5 (1.0-4.8) k/uL Monocytes # 0.3 (0-1.0) k/uL Eosinophils # 0.2 (0-0.7) k/uL Basophils # 0.0 (0-0.2) k/uL Sodium 143 (137-145) mmol/L Potassium 3.4 L (3.5-5.1) mmol/L Chloride 107 (98-107) mmol/L Carbon Dioxide 27 (22-30) mmol/L Anion Gap 9 mmol/L BUN 10 (7-17) mg/dL Creatinine 0.76 (0.52-1.04) mg/dL Est GFR (MDRD) Af Amer >60 (>60 ml/min/1.73 sqM) Est GFR (MDRD) Non-Af >60 (>60 ml/min/1.73 sqM) Glucose 70 L (74-99) mg/dL Calcium 9.3 (8.4-10.2) mg/dL Total Bilirubin 0.4 (0.2-1.3) mg/dL AST 26 (14-36) U/L ALT 33 (9-52) U/L Alkaline Phosphatase 47 (38-126) U/L Total Protein 6.3 (6.3-8.2) g/dL Albumin 3.9 (3.5-5.0) g/dL Disposition Clinical Impression: Allergic reaction, Dizziness Disposition: HOME SELF-CARE Instructions: Anaphylaxis (ED) Prescriptions: Loratadine [Claritin] 10 mg PO DAILY #10 tablet Ranitidine HCl [Zantac] 150 mg PO BID #20 tab predniSONE 50 mg PO DAILY #5 tab Referrals: Tushar Majano MD [Primary Care Provider] - 1-2 days
[2016-09-15 16:30] VITALS: TEMP 97.9
[2016-09-15] MEDS ORDERED: diphenhydrAMINE 50 MG CAP PO STA (16:32)
[2016-09-15 16:46] VITALS: BP 109/66; PULSE 58; RESP 16
== END 2016-09-15 17:20 | disposition home or self-care (01) ==
LOC: EC 13:03
DX: T78.2XXA Anaphylactic shock, unspecified, initial encounter (principal); R42 Dizziness and giddiness; K58.9 Irritable bowel syndrome, unspecified; F31.9 Bipolar disorder, unspecified; F41.9 Anxiety disorder, unspecified; F43.10 Post-traumatic stress disorder, unspecified; Z87.891 Personal history of nicotine dependence; Z79.899 Other long term (current) drug therapy; Z88.5 Allergy status to narcotic agent; Z88.6 Allergy status to analgesic agent; Z88.8 Allergy status to other drugs, medicaments and biological substances; Z91.011 Allergy to milk products
CPT/HCPCS: 36415; 80053; 85025; 70450; 99284; 96374; 96375; 96361 ×2; J2930

== ENCOUNTER → 2016-09-22 | Outpatient (CLI) | payer OTHER ==
[2016-09-22 10:48] VITALS: BP 118/77; PULSE 69; RESP 14; TEMP 98.2; BMI 21.6
--- NOTE | 2016-10-27 06:02 | P.PN ---
Progress Note - Text DATE OF SERVICE: 09/22/2016. CHIEF COMPLAINT: Follow-up panniculectomy. HISTORY OF PRESENT ILLNESS: Jacinda Diamond is a 41-year-old female status post panniculectomy 07/26/2016. She is now two months out. At her height of 5 feet 6 inches, her highest weight was 309 pounds. Today she comes in weighing 134 pounds. She has lost 175 pounds lifetime weight loss, percent weight loss 113%. Body mass index is reduced from 50 down to 21.6. Total BMI point reduction of 28.4. She has actually reports eating protein. She is very pleased with the cosmetic outcome. PHYSICAL EXAM: VITAL SIGNS: 98.2, 69, 14, 118/77, 5 foot 6 inches, 134 pounds. Body mass index 21.6. ABDOMEN: All incisions granulated. No palpable incisional hernias. No moderate seroma identified. Abdomen soft, nontender. MUSCULOSKELETAL: No clubbing, cyanosis, or edema. GENERAL: Well-developed, pleasant female, no acute distress. HEENT: No sclerae icterus. Extraocular movements grossly intact. Well-healed scar from prior tracheostomy. No nasal drainage. RESPIRATORY: Nonlabored respirations. Equal bilateral excursions. CARDIOVASCULAR: Regular rate and regular rhythm. Palpable 2+ radial pulses. NEURO: There are no focal or lateralizing signs. PSYCH: Appropriate affect. Alert and oriented to person, place and time. ASSESSMENT: 1. Morbid obesity due to excess calories, now completely resolved. 2. Body mass index reduced from 50 down to 21.6. 3. Status post Dariana-En-Y gastric bypass. 4. Status post massive weight loss, 175 pounds. 5. History of panniculitis, now resolved. 6. Status post panniculectomy. PLAN: 1. Since her last visit, she has actually gained 6 pounds which is helpful. 2. Recommend a follow-up at least on a yearly at the [facility]. 3. With her recent panniculectomy, recommend coconut oil also for generalized skin care. 4. Recommend follow-up at her anniversary of her surgery for June 2017.
== END | disposition home or self-care (01) ==
LOC: BARWHC3 09:47
PROVIDERS: ATTEND Surgery Plastic and Reconstructive Surgery
DX: Z48.815 Encounter for surgical aftercare following surgery on the digestive system (principal); Z68.21 Body mass index [BMI] 21.0-21.9, adult; Z98.84 Bariatric surgery status; Z98.890 Other specified postprocedural states
CPT/HCPCS: 99212

== ENCOUNTER → 2016-09-24 | Outpatient (CLI) | payer OTHER ==
--- NOTE | 2016-09-24 22:07 | MR ---
EXAMINATION TYPE: MR lumbar spine wo con DATE OF EXAM: 09/24/2016 2:18 PM COMPARISON: CT lumbar spine 29/07/2015 HISTORY: Low back pain, estrella leg pain TECHNIQUE: Multiplanar, multisequence images of the lumbar spine were acquired. L1-L2: Normal disc appearance without desiccation. No herniation, protrusion or disc bulging. No ca nal stenosis is present. Foramina are patent bilaterally. L2-L3: Normal disc appearance without desiccation. No herniation, protrusion or disc bulging. No ca nal stenosis is present. Foramina are patent bilaterally. L3-L4: There is broad-based posterior disc bulge causing minimal anterior mass effect on the thecal s ac, facet arthropathy change is mild. No significant foraminal encroachment or central stenosis. L4-L 5: Minimal posterior broad-based disc bulge. No herniation, protrusion or disc bulging. No canal st enosis is present. Foramina are patent bilaterally. There is some facet arthropathy encroaching on t he lateral recesses, no paraspinal mass L5-S1: Normal disc appearance without desiccation. No herniation, protrusion or disc bulging. No ca nal stenosis is present. Foramina are patent bilaterally. There is some facet arthropathy Lumbar segments are intact. No paraspinal masses are identified. Conus medullaris has a normal appe arance. Lumbar vertebral bodies show preserved height and alignment. Loss of disc height and signal L 3-4. Minimal spondylosis L2-3 with endplate discogenic marrow signal change. The conus is at L1 shows an unremarkable appearance. Small cortical cyst left kidney IMPRESSION: Mild degenerative disc disease, facet arthropathy.
== END | disposition home or self-care (01) ==
LOC: RADMRIMAIN 13:44
PROVIDERS: ATTEND Nurse Practitioner Acute Care
DX: M51.36 Other intervertebral disc degeneration, lumbar region (principal); M46.96 Unspecified inflammatory spondylopathy, lumbar region
CPT/HCPCS: 72148

== ENCOUNTER 2016-12-24 21:20 | Observation (INO) | payer OTHER ==
[2016-12-24] MEDS ORDERED: ONDANSETRON 4 MG/2 ML VIAL IVP STA (21:55)
[2016-12-24] MEDS ORDERED: SODIUM CHLORIDE 0.9% 1,000 ML IV ONE (21:55)
[2016-12-24] MEDS ORDERED: HYDROmorphone 1 MG/ML 1 ML SYRINGE IVP STA (21:55)
--- NOTE | 2016-12-24 22:02 | ED ---
Abdominal Pain HPI - General Chief Complaint: Abdominal Pain Stated Complaint: Abd Pain Time Seen by Provider: 12/24/16 21:28 Source: patient, RN notes reviewed Mode of arrival: wheelchair Limitations: no limitations - History of Present Illness Initial Comments: Patient is a 41-year-old female presents to the emergency room for evaluation of abdominal pain. Patient states about 20 minutes before arrival she began developing right lower quadrant and left lower quadrant pain. Patient states the pain is very sharp and constant. Patient denies taking anything for pain. Patient denies having this pain before in the past. Patient states she has a history of tummy noman, hernia repair in July by Dr. Mishra. Patient also states she has a history of bariatric surgery. Patient states she has a history of cholecystectomy. Patient states she has a history of tubal ligation and uterine ablation. Patient denies any fevers or chills. Patient denies chest pain or shortness of breath. Patient states she's nauseated but denies vomiting. Patient denies any pain or burning during urination, trouble urinating or blood in urine. Patient denies back pain. Patient denies any painful sexual intercourse. - Related Data Home Medications Medication Instructions Recorded Confirmed Pregabalin [Lyrica] 75 mg PO BID 03/17/16 09/23/16 Butalb/Acetaminophen/Caffeine 1 - 2 tab PO Q8H PRN 07/14/16 09/23/16 [Fioricet 50-325-40] OXcarbazepine [Trileptal] 300 mg PO BID 07/14/16 09/23/16 PARoxetine HCL [Paxil] 10 mg PO DAILY 07/14/16 09/23/16 QUEtiapine [SEROquel] 50 mg PO HS 07/14/16 09/23/16 Docusate [Colace] 200 mg PO HS 09/15/16 09/23/16 Zonisamide [Zonegran] 200 mg PO HS 09/15/16 09/23/16 Previous Rx's Medication Instructions Recorded Omeprazole 40 mg PO DAILY #90 capsule. 04/15/16 Loratadine [Claritin] 10 mg PO DAILY #10 tablet 09/15/16 Ranitidine HCl [Zantac] 150 mg PO BID #20 tab 09/15/16 Allergies Allergy/AdvReac Type Severity Reaction Status Date / Time meperidine HCl [From Adarsherol] Allergy Severe "BECAME Verified 12/24/16 21:26 BELIGERENT" Milk Containing Products Allergy Severe Nausea & Verified 12/24/16 21:26 [Dairy] Vomiting & Diarrhea guaifenesin [From Robitussin] Allergy Mild WHEEZING Verified 12/24/16 21:26 FROM COUGH SYRUP WITH CODEINE codeine Allergy Unknown Unknown Verified 12/24/16 21:26 zonisamide [From Zonegran] Allergy Anaphylaxis Verified 12/24/16 21:26 aspirin AdvReac "MAKES Verified 12/24/16 21:26 BLOOD TOO THIN" Review of Systems ROS Statement: Those systems with pertinent positive or pertinent negative responses have been documented in the HPI. ROS Other: All systems not noted in ROS Statement are negative. Past Medical History Past Medical History: GERD/Reflux, Rheumatoid Arthritis (RA) Additional Past Medical History / Comment(s): migraines, bilateral neuropathy( legs and hands)- legs can give out causing falls, hx IBS, hx swine flu 2008- was vented, varicose veins History of Any Multi-Drug Resistant Organisms: MRSA Date of last positivie culture/infection: 06/2009 MDRO Source:: LUNGS Past Surgical History: Bariatric Surgery, Section, Cholecystectomy, Hernia Repair, Tubal Ligation, Uterine Ablation Additional Past Surgical History / Comment(s): 06/22/15 Laparoscopic misty-en-y gastric bypass with EGD. PEG tube/later removed, Tracheostomy 2008 when she had the swine flu. Panniculectomy 07/25/16, 3 hernia removed Past Anesthesia/Blood Transfusion Reactions: Motion Sickness, Postoperative Nausea & Vomiting (PONV) Additional Past Anesthesia/Blood Transfusion Reaction / Comment(s): Pt states she has never received blood. Past Psychological History: Anxiety, Bipolar, Depression, PTSD Smoking Status: Former smoker Past Alcohol Use History: None Reported Past Drug Use History: None Reported - Past Family History Mother Family Medical History: Asthma, Congestive Heart Failure (CHF), COPD, Diabetes Mellitus, GERD/Reflux, Hypertension, Pneumonia, Sleep Apnea/CPAP/BIPAP Additional Family Medical History / Comment(s): varicose veins, enlarged heart. Father Family Medical History: Hypertension Additional Family Medical History / Comment(s): Father is living. General Exam - General Exam Comments Initial Comments: Sitting in exam room, no acute distress. Limitations: no limitations General appearance: alert, in no apparent distress Head exam: Present: atraumatic, normocephalic, normal inspection Eye exam: Present: normal appearance ENT exam: Present: normal exam Neck exam: Present: normal inspection Respiratory exam: Present: normal lung sounds bilaterally. Absent: respiratory distress Cardiovascular Exam: Present: regular rate, normal rhythm, normal heart sounds GI/Abdominal exam: Present: soft, tenderness (Right lower quadrant, left lower quadrant), normal bowel sounds. Absent: distended, guarding, rebound, rigid Extremities exam: Present: normal inspection Back exam: Present: normal inspection Neurological exam: Present: alert, oriented X3, CN II-XII intact, normal gait Psychiatric exam: Present: normal affect, normal mood Skin exam: Present: warm, dry, intact, normal color. Absent: rash Course Vital Signs 12/24/16 12/25/16 12/25/16 21:22 00:05 00:39 Temperature 97.9 F Pulse Rate 79 65 63 Respiratory 16 16 18 Rate Blood Pressure 109/68 124/60 116/63 O2 Sat by Pulse 99 100 98 Oximetry Medical Decision Making - Medical Decision Making Patient is a 41-year-old female presents to the emergency room for evaluation of abdominal pain. WBC within normal limits. Ultrasound significant for acute appendicitis. Case discussed Dr. Xiong. discussed case with Dr. Mishra who agreed to admit patient. Patient will be started on Unasyn and NPO. - Lab Data Result diagrams: 12/24/16 22:10 12/24/16 22:10 Lab Results 12/24/16 12/24/16 12/24/16 Range/Units 22:10 22:10 22:10 WBC 10.3 (3.8-10.6) k/uL RBC 4.44 (3.80-5.40) m/uL Hgb 13.9 (11.4-16.0) gm/dL Hct 40.4 (34.0-46.0) % MCV 90.8 (80.0-100.0) fL MCH 31.3 (25.0-35.0) pg MCHC 34.5 (31.0-37.0) g/dL RDW 13.1 (11.5-15.5) % Plt Count 169 (150-450) k/uL Neutrophils % 74 % Lymphocytes % 18 % Monocytes % 3 % Eosinophils % 2 % Basophils % 1 % Neutrophils # 7.6 (1.3-7.7) k/uL Lymphocytes # 1.9 (1.0-4.8) k/uL Monocytes # 0.3 (0-1.0) k/uL Eosinophils # 0.3 (0-0.7) k/uL Basophils # 0.1 (0-0.2) k/uL Sodium 142 (137-145) mmol/L Potassium 4.1 (3.5-5.1) mmol/L Chloride 106 (98-107) mmol/L Carbon Dioxide 26 (22-30) mmol/L Anion Gap 10 mmol/L BUN 14 (7-17) mg/dL Creatinine 0.64 (0.52-1.04) mg/dL Est GFR (MDRD) Af Amer >60 (>60 ml/min/1.73 sqM) Est GFR (MDRD) Non-Af >60 (>60 ml/min/1.73 sqM) Glucose 85 (74-99) mg/dL Calcium 9.4 (8.4-10.2) mg/dL Total Bilirubin 0.5 (0.2-1.3) mg/dL AST 30 (14-36) U/L ALT 36 (9-52) U/L Alkaline Phosphatase 78 (38-126) U/L Total Protein 6.8 (6.3-8.2) g/dL Albumin 4.2 (3.5-5.0) g/dL Amylase 65 (30-110) U/L Lipase 185 (23-300) U/L Urine Color Yellow Urine Appearance Cloudy H (Clear) Urine pH 5.5 (5.0-8.0) Ur Specific [place] 1.023 (1.001-1.035) Urine Protein Trace H (Negative) Urine Glucose (UA) Negative (Negative) Urine Ketones 1+ H (Negative) Urine Blood Negative (Negative) Urine Nitrite Negative (Negative) Urine Bilirubin Negative (Negative) Urine Urobilinogen 2.0 (<2.0) mg/dL Ur Leukocyte Esterase Large H (Negative) Urine RBC 2 (0-5) /hpf Urine WBC 22 H (0-5) /hpf Ur Squamous Epith Cells 9 H (0-4) /hpf Urine Bacteria Few H (None) /hpf Urine Mucus Rare H (None) /hpf - Radiology Data Radiology results: report reviewed, image reviewed Disposition Clinical Impression: Acute appendicitis Disposition: ADMITTED IP TO THIS HOSP Condition: Stable Decision Date: 12/25/16
[2016-12-24 22:26] LABS: Basophils # (A) 0.1 k/uL (0-0.2); Basophils % (A) 1 %; CH 31.5; CHCM 34.9; Eosinophils # (A) 0.3 k/uL (0-0.7); Eosinophils % (A) 2 %; HCT 40.4 % (34.0-46.0); HDW 2.48; HGB 13.9 gm/dL (11.4-16.0); Luc # (Auto) 0.12; Luc % (Auto) 1; Lymphocytes # (A) 1.9 k/uL (1.0-4.8); Lymphocytes % (A) 18 %; MCH 31.3 pg (25.0-35.0); MCHC 34.5 g/dL (31.0-37.0); MCV 90.8 fL (80.0-100.0); Mean Platelet Volume 8.2; Monocytes # (A) 0.3 k/uL (0-1.0); Monocytes % (A) 3 %; Neutrophils # (A) 7.6 k/uL (1.3-7.7); Neutrophils % (A) 74 %; RBC 4.44 m/uL (3.80-5.40); RDW 13.1 % (11.5-15.5); WBC 10.3 k/uL (3.8-10.6)
[2016-12-24 22:35] LABS: Appearance,Urine Cloudy (Clear); Bacteria,Urine Few /hpf; Bilirubin,Urine Negative (Negative); Glucose,Urine (UA) Negative (Negative); Ketones,Urine 1+ (Negative); Leukocyte Esterase,Urine Large (Negative); Mucus,Urine Rare /hpf; Nitrite,Urine Negative (Negative); PH, Urine 5.5 (5.0-8.0); Particle Count 11059; Protein,Urine Trace (Negative); RBC,Urine 2 /hpf (0-5); Specific Gravity,Urine 1.023 (1.001-1.035); Squamous Epithelial Cell,Urine 9 /hpf (0-4); UA Billing (MACRO vs. MICRO) MICRO; WBC,Urine 22 /hpf (0-5)
[2016-12-24 22:37] LABS: ALT 36 U/L (9-52); AST 30 U/L (14-36); Alkaline Phosphatase 78 U/L (38-126); Amylase 65 U/L (30-110); Anion Gap 10 mmol/L; Blood Urea Nitrogen 14 mg/dL (7-17); Calcium 9.4 mg/dL (8.4-10.2); Carbon Dioxide 26 mmol/L (22-30); Chloride 106 mmol/L (98-107); Glucose 85 mg/dL (74-99); Non-African American GFR(MDRD) >60 (>60 ml/min/1.73 sqM); Potassium 4.1 mmol/L (3.5-5.1); Sodium 142 mmol/L (137-145); Total Bilirubin 0.5 mg/dL (0.2-1.3); Total Protein 6.8 g/dL (6.3-8.2)
[2016-12-24] MEDS ORDERED: KETOROLAC 30 MG/ML 1 ML VIAL IVP STA (23:58)
--- NOTE | 2016-12-24 23:58 | US ---
EXAMINATION TYPE: US abdomen APPY DATE OF EXAM: 12/24/2016 COMPARISON: NONE CLINICAL HISTORY: 41-year-old female with pain. FINDINGS: AP Diameter (normal < 6mm): 1cm Measured outer wall to outer wall. The appendix appears to be seen in its entirety from the proximal cecum to distal end. The appendix does not compress. The appendix appears to have increased vascularity. There may be an appendicolith present. No free fluid noted. IMPRESSION: Findings are most consistent with acute appendicitis. Critical Value Communications 12/25/16 00:03 Call Doctor Regarding Appendicitis, called ROSA Walker on 12/25 00:02 (-04:00)
--- NOTE | 2016-12-25 00:02 | US ---
EXAMINATION: US transvaginal DATE OF EXAM: 12/24/2016 COMPARISON: Pelvic ultrasound 04/10/2016. CLINICAL HISTORY: 41-year-old female with pain. TECHNIQUE: Multiple transvaginal sonographic images of the pelvis. FINDINGS: Uterus: Normal in position and size measuring 7.7 x 3.5 x 4.8 cm. Endometrial Stripe: 0.6 cm; within normal limits. Right Ovary: 2.5 x 1.7 x 1.6 cm; normal in size, position, and blood flow. No evidence of ovarian torsion. Previously identified lobulated solid lesion adjacent the right ovary is not visualized. Left Ovary: 2.5 x 1.8 x 1.8 cm; normal in size, position, and blood flow. No evidence of ovarian torsion. Free fluid: None. IMPRESSION: 1. No sonographic evidence for an acute pelvic abnormality. 2. Previous identified lobulated solid lesion adjacent to the right ovary is not visualized.
[2016-12-25] MEDS ORDERED: AMPICILLIN-SULBACTAM 3 GM in SODIUM CHLORIDE 0.9% 100 ML IVPB STA (00:12)
--- NOTE | 2016-12-25 00:34 | XR ---
EXAM: KUB, 2 views INDICATION: 41-year-old female, pain. COMPARISON: CT of the abdomen and pelvis 04/10/2016. FINDINGS: Single frontal view of the abdomen demonstrates a normal bowel gas pattern. No evidence of organomegaly, suspicious calcifications or obvious soft tissue masses. Cholecystectomy clips are present in the right upper quadrant. Bowel suture material projects over the epigastrium and left upper quadrant region. The osseous structures are intact. IMPRESSION: No radiographic evidence for acute abnormality.
[2016-12-25] MEDS ORDERED: NALOXONE 0.4 MG/ML 1 ML VIAL IV PRN (00:52)
[2016-12-25] MEDS ORDERED: ONDANSETRON 4 MG/2 ML VIAL IVP PRN (00:52)
[2016-12-25] MEDS: HYDROmorphone 1 MG/ML 1 ML SYRINGE IV PRN ×4 (01:18→08:55)
[2016-12-25] MEDS: SODIUM CHLORIDE 0.9% 1,000 ML IV SCH ×4 (01:21→18:50)
[2016-12-25 02:45] VITALS: BMI 21.6
[2016-12-25] MEDS: KETOROLAC 30 MG/ML 1 ML VIAL IVP PRN ×2 (07:00→17:52)
[2016-12-25 09:17] LABS: Basophils % (A) 0 %; CH 31.1; CHCM 33.1; Eosinophils # (A) 0.1 k/uL (0-0.7); Eosinophils % (A) 2 %; HCT 37.8 % (34.0-46.0); HDW 2.32; HGB 12.4 gm/dL (11.4-16.0); Luc # (Auto) 0.07; Luc % (Auto) 1; Lymphocytes % (A) 14 %; MCH 30.9 pg (25.0-35.0); MCHC 32.7 g/dL (31.0-37.0); MCV 94.5 fL (80.0-100.0); Mean Platelet Volume 8.4; Monocytes # (A) 0.4 k/uL (0-1.0); Monocytes % (A) 5 %; Neutrophils # (A) 5.6 k/uL (1.3-7.7); Neutrophils % (A) 78 %; RDW 13.4 % (11.5-15.5); WBC 7.2 k/uL (3.8-10.6); WBC (Perox) 7.66
[2016-12-25 09:28] LABS: ALT 27 U/L (9-52); AST 22 U/L (14-36); Alkaline Phosphatase 55 U/L (38-126); Anion Gap 6 mmol/L; Blood Urea Nitrogen 14 mg/dL (7-17); Calcium 8.6 mg/dL (8.4-10.2); Carbon Dioxide 28 mmol/L (22-30); Chloride 107 mmol/L (98-107); Glucose 72 mg/dL (74-99); Non-African American GFR(MDRD) >60 (>60 ml/min/1.73 sqM); Potassium 3.3 mmol/L (3.5-5.1); Sodium 141 mmol/L (137-145); Total Bilirubin 0.9 mg/dL (0.2-1.3); Total Protein 5.5 g/dL (6.3-8.2)
[2016-12-25] MEDS ORDERED: NEOSTIGMINE 1 MG/ML 10 ML VIAL ONE (10:42)
[2016-12-25] MEDS ORDERED: PROPOFOL 10 MG/ML 20 ML VIAL IV ONE (10:42)
[2016-12-25] MEDS ORDERED: fentaNYL (PF) 50 MCG/ML 2 ML AMP ONE (10:42)
[2016-12-25] MEDS ORDERED: GLYCOPYRROLATE 0.2 MG/ML 2 ML VIAL ONE (10:42)
[2016-12-25] MEDS ORDERED: ceFAZolin 1,000 MG VIAL ONE (10:42)
[2016-12-25] MEDS ORDERED: LIDOCAINE 1% INJ 10MG/ML (20 ML MDV) ONE (10:42)
[2016-12-25] MEDS ORDERED: ePHEDrine 50 MG/ML 1 ML AMP ONE (10:42)
[2016-12-25] MEDS ORDERED: ROCURONIUM BROMIDE 10 MG/ML 10 ML VIAL IV ONE (10:42)
[2016-12-25] MEDS ORDERED: SUCCINYLCHOLINE CHLORIDE 100 MG/5 ML SYR IV ONE (10:42)
[2016-12-25] MEDS ORDERED: DEXAMETHASONE SOD PHOS (MDV) 100 MG/10 ML VIAL ONE (10:42)
[2016-12-25] MEDS ORDERED: ONDANSETRON 4 MG/2 ML VIAL ONE (10:42)
[2016-12-25] MEDS ORDERED: HEPARIN SODIUM,PORCINE 5,000 UNIT/ML 1 ML VIAL ONE (10:42)
[2016-12-25] MEDS ORDERED: MIDAZOLAM 2 MG/2 ML VIAL ONE (10:42)
[2016-12-25] MEDS ORDERED: ceFAZolin 2 GM in SODIUM CHLORIDE 0.9% 100 ML IVPB ONE (10:43)
--- NOTE | 2016-12-25 10:43 | P.GSHP ---
History of Present Illness H&P Date: 12/25/16 CHIEF COMPLAINT: Right lower quadrant abdominal pain with appendicitis for 1 day. HISTORY OF PRESENT ILLNESS: The patient is a previously healthy 41-year-old female who presents with less than 1 day history of periumbilical with right lower quadrant abdominal pain that started last night. She presented to the ER where prior ultrasound of the abdomen demonstrated appendicitis. She presents for definitive surgical intervention. PAST MEDICAL HISTORY: See list. PAST SURGICAL HISTORY: See list. CURRENT MEDICATIONS: See list. ALLERGIES: See list. SOCIAL HISTORY: Non-tobacco user. FAMILY HISTORY: Denies Crohns disease and ulcerative colitis. REVIEW OF ORGAN SYSTEMS: CONSTITUTIONAL: Weight loss over 130 pounds following gastric bypass. HEENT: Denies any trouble with vision, hearing or nosebleeds. No difficulty swallowing. LYMPHATIC: The patient denies any lumps and bumps around the neck. ENDOCRINE: Denies any blood sugar glucose intolerance. RESPIRATORY: Denies shortness of breath including chronic cough. CARDIOVASCULAR: Denies history of chest pain with exertion. GASTROINTESTINAL: History of gastric bypass with intermittent abdominal pain. GENITOURINARY: Denies any blood in urine or increased urinary frequency. MUSCULOSKELETAL: Has current joint arthritis. NEUROLOGIC: Denies any numbness or tingling along the distal extremities. No seizure disorders or headaches. PSYCHIATRIC: Denies any depression or suicidal ideation. HEMATOLOGIC: Denies any abnormal bleeding or bruising. PHYSICAL EXAMINATION: Vital Signs Temp 98.3 F 12/25/16 07:11 Pulse 66 12/25/16 07:11 Resp 16 12/25/16 07:11 BP 102/61 12/25/16 07:11 Pulse Ox 99 12/25/16 07:11 Intake & Output 12/24/16 12/25/16 12/25/16 18:59 06:59 18:59 Weight 60.781 kg Other: Voiding Method Toilet # Voids 1 1 GENERAL: Well developed and in no acute distress. Pleasant. HEENT: No sclera icterus. Extraocular movements grossly intact. Moist buccal mucosa. Head is atraumatic, normocephalic. Hears conversational speech. No nasal drainage. NECK: Supple without lymphadenopathy. No JV distention. CHEST: Non-labored respirations and equal bilateral excursions. CARDIOVASCULAR: Regular rate and rhythm. Palpable 2+ radial pulses. ABDOMEN: Soft, tender at the right lower quadrant. MUSCULOSKELETAL: No clubbing, cyanosis or edema. NEUROLOGIC: No focal or lateralizing signs. PSYCH: Appropriate affect. Alert and oriented to person, place and time. Laboratory Last Values WBC 7.2 k/uL (3.8-10.6) 12/25/16 08:59 RBC 4.00 m/uL (3.80-5.40) 12/25/16 08:59 Hgb 12.4 gm/dL (11.4-16.0) 12/25/16 08:59 Hct 37.8 % (34.0-46.0) 12/25/16 08:59 MCV 94.5 fL (80.0-100.0) 12/25/16 08:59 MCH 30.9 pg (25.0-35.0) 12/25/16 08:59 MCHC 32.7 g/dL (31.0-37.0) 12/25/16 08:59 RDW 13.4 % (11.5-15.5) 12/25/16 08:59 Plt Count 120 k/uL (150-450) L 12/25/16 08:59 Neutrophils % 78 % 12/25/16 08:59 Lymphocytes % 14 % 12/25/16 08:59 Monocytes % 5 % 12/25/16 08:59 Eosinophils % 2 % 12/25/16 08:59 Basophils % 0 % 12/25/16 08:59 Neutrophils # 5.6 k/uL (1.3-7.7) 12/25/16 08:59 Lymphocytes # 1.0 k/uL (1.0-4.8) 12/25/16 08:59 Monocytes # 0.4 k/uL (0-1.0) 12/25/16 08:59 Eosinophils # 0.1 k/uL (0-0.7) 12/25/16 08:59 Basophils # 0.0 k/uL (0-0.2) 12/25/16 08:59 Sodium 141 mmol/L (137-145) 12/25/16 08:59 Potassium 3.3 mmol/L (3.5-5.1) L 12/25/16 08:59 Chloride 107 mmol/L (98-107) 12/25/16 08:59 Carbon Dioxide 28 mmol/L (22-30) 12/25/16 08:59 Anion Gap 6 mmol/L 12/25/16 08:59 BUN 14 mg/dL (7-17) 12/25/16 08:59 Creatinine 0.56 mg/dL (0.52-1.04) 12/25/16 08:59 Est GFR (MDRD) Af Amer >60 (>60 ml/min/1.73 sqM) 12/25/16 08:59 Est GFR (MDRD) Non-Af >60 (>60 ml/min/1.73 sqM) 12/25/16 08:59 Glucose 72 mg/dL (74-99) L 12/25/16 08:59 Calcium 8.6 mg/dL (8.4-10.2) 12/25/16 08:59 Total Bilirubin 0.9 mg/dL (0.2-1.3) 12/25/16 08:59 AST 22 U/L (14-36) 12/25/16 08:59 ALT 27 U/L (9-52) 12/25/16 08:59 Alkaline Phosphatase 55 U/L (38-126) 12/25/16 08:59 Total Protein 5.5 g/dL (6.3-8.2) L 12/25/16 08:59 Albumin 3.3 g/dL (3.5-5.0) L 12/25/16 08:59 Amylase 65 U/L (30-110) 12/24/16 22:10 Lipase 185 U/L (23-300) 12/24/16 22:10 Urine Color Yellow 12/24/16 22:10 Urine Appearance Cloudy (Clear) H 12/24/16 22:10 Urine pH 5.5 (5.0-8.0) 12/24/16 22:10 Ur Specific [place] 1.023 (1.001-1.035) 12/24/16 22:10 Urine Protein Trace (Negative) H 12/24/16 22:10 Urine Glucose (UA) Negative (Negative) 12/24/16 22:10 Urine Ketones 1+ (Negative) H 12/24/16 22:10 Urine Blood Negative (Negative) 12/24/16 22:10 Urine Nitrite Negative (Negative) 12/24/16 22:10 Urine Bilirubin Negative (Negative) 12/24/16 22:10 Urine Urobilinogen 2.0 mg/dL (<2.0) 12/24/16 22:10 Ur Leukocyte Esterase Large (Negative) H 12/24/16 22:10 Urine RBC 2 /hpf (0-5) 12/24/16 22:10 Urine WBC 22 /hpf (0-5) H 12/24/16 22:10 Ur Squamous Epith Cells 9 /hpf (0-4) H 12/24/16 22:10 Urine Bacteria Few /hpf (None) H 12/24/16 22:10 Urine Mucus Rare /hpf (None) H 12/24/16 22:10 Urine HCG, Qual Not Detected (Not Detectd) 12/25/16 09:30 STUDIES: Ultrasound of the abdomen with findings consistent with appendicitis. ASSESSMENT: 1. Right lower quadrant pain. 2. Appendicitis. 3. Leukocytosis. PLAN: 1. I have discussed benefits and risks of laparoscopic appendectomy. 2. GI prophylaxis. 3. Antibiotics, Unasyn 4. DVT prophylaxis with heparin. Thank you very much for allowing me to participate in the care of your patient. Past Medical History Past Medical History: GERD/Reflux, Rheumatoid Arthritis (RA) Additional Past Medical History / Comment(s): migraines, bilateral neuropathy( legs and hands)- legs can give out causing falls, hx IBS, hx swine flu 2008- was vented, varicose veins History of Any Multi-Drug Resistant Organisms: MRSA Date of last positivie culture/infection: 06/2009 MDRO Source:: LUNGS Past Surgical History: Bariatric Surgery, Section, Cholecystectomy, Hernia Repair, Tubal Ligation, Uterine Ablation Additional Past Surgical History / Comment(s): 06/22/15 Laparoscopic misty-en-y gastric bypass with EGD. PEG tube/later removed, Tracheostomy 2008 when she had the swine flu. Panniculectomy 07/25/16, 3 hernia removed Past Anesthesia/Blood Transfusion Reactions: Motion Sickness, Postoperative Nausea & Vomiting (PONV) Additional Past Anesthesia/Blood Transfusion Reaction / Comment(s): Pt states she has never received blood. Past Psychological History: Anxiety, Bipolar, Depression, PTSD Additional Psychological History / Comment(s): . Smoking Status: Former smoker Past Alcohol Use History: None Reported Past Drug Use History: None Reported - Past Family History Mother Family Medical History: Asthma, Congestive Heart Failure (CHF), COPD, Diabetes Mellitus, GERD/Reflux, Hypertension, Pneumonia, Sleep Apnea/CPAP/BIPAP Additional Family Medical History / Comment(s): varicose veins, enlarged heart. Father Family Medical History: Hypertension Additional Family Medical History / Comment(s): Father is living. Medications and Allergies Home Medications Medication Instructions Recorded Confirmed Type Pregabalin [Lyrica] 75 mg PO BID 03/17/16 12/25/16 History Butalb/Acetaminophen/Caffeine 1 - 2 tab PO Q8H PRN 07/14/16 12/25/16 History [Fioricet 50-325-40] OXcarbazepine [Trileptal] 300 mg PO BID 07/14/16 12/25/16 History PARoxetine HCL [Paxil] 10 mg PO DAILY 07/14/16 12/25/16 History QUEtiapine [SEROquel] 100 mg PO HS 12/25/16 12/25/16 History Allergies Allergy/AdvReac Type Severity Reaction Status Date / Time meperidine HCl [From Demerol] Allergy Severe "BECAME Verified 12/25/16 07:52 BELIGERENT" Milk Containing Products Allergy Severe Nausea & Verified 12/25/16 07:52 [Dairy] Vomiting & Diarrhea guaifenesin [From Robitussin] Allergy Mild WHEEZING Verified 12/25/16 07:52 FROM COUGH SYRUP WITH CODEINE codeine Allergy Unknown Unknown Verified 12/25/16 07:52 zonisamide [From Zonegran] Allergy Anaphylaxis Verified 12/25/16 07:52 aspirin AdvReac "MAKES Verified 12/25/16 07:52 BLOOD TOO THIN" Surgical - Exam Vital Signs Temp Pulse Resp BP Pulse Ox 97.9 F 79 16 109/68 99 12/24/16 21:22 12/24/16 21:22 12/24/16 21:22 12/24/16 21:22 12/24/16 21:22 Results - Labs 12/25/16 08:59 12/25/16 08:59 Abnormal Lab Results - Last 24 Hours (Table) 12/24/16 12/25/16 12/25/16 Range/Units 22:10 08:59 08:59 Plt Count 120 L (150-450) k/uL Potassium 3.3 L (3.5-5.1) mmol/L Glucose 72 L (74-99) mg/dL Total Protein 5.5 L (6.3-8.2) g/dL Albumin 3.3 L (3.5-5.0) g/dL Urine Appearance Cloudy H (Clear) Urine Protein Trace H (Negative) Urine Ketones 1+ H (Negative) Ur Leukocyte Esterase Large H (Negative) Urine WBC 22 H (0-5) /hpf Ur Squamous Epith Cells 9 H (0-4) /hpf Urine Bacteria Few H (None) /hpf Urine Mucus Rare H (None) /hpf Diabetes panel 12/24/16 12/25/16 Range/Units 22:10 08:59 Sodium 142 141 (137-145) mmol/L Potassium 4.1 3.3 L (3.5-5.1) mmol/L Chloride 106 107 (98-107) mmol/L Carbon Dioxide 26 28 (22-30) mmol/L BUN 14 14 (7-17) mg/dL Creatinine 0.64 0.56 (0.52-1.04) mg/dL Glucose 85 72 L (74-99) mg/dL Calcium 9.4 8.6 (8.4-10.2) mg/dL AST 30 22 (14-36) U/L ALT 36 27 (9-52) U/L Alkaline Phosphatase 78 55 (38-126) U/L Total Protein 6.8 5.5 L (6.3-8.2) g/dL Albumin 4.2 3.3 L (3.5-5.0) g/dL Calcium panel 12/24/16 12/25/16 Range/Units 22:10 08:59 Calcium 9.4 8.6 (8.4-10.2) mg/dL Albumin 4.2 3.3 L (3.5-5.0) g/dL Pituitary panel 12/24/16 12/25/16 Range/Units 22:10 08:59 Sodium 142 141 (137-145) mmol/L Potassium 4.1 3.3 L (3.5-5.1) mmol/L Chloride 106 107 (98-107) mmol/L Carbon Dioxide 26 28 (22-30) mmol/L BUN 14 14 (7-17) mg/dL Creatinine 0.64 0.56 (0.52-1.04) mg/dL Glucose 85 72 L (74-99) mg/dL Calcium 9.4 8.6 (8.4-10.2) mg/dL Adrenal panel 12/24/16 12/25/16 Range/Units 22:10 08:59 Sodium 142 141 (137-145) mmol/L Potassium 4.1 3.3 L (3.5-5.1) mmol/L Chloride 106 107 (98-107) mmol/L Carbon Dioxide 26 28 (22-30) mmol/L BUN 14 14 (7-17) mg/dL Creatinine 0.64 0.56 (0.52-1.04) mg/dL Glucose 85 72 L (74-99) mg/dL Calcium 9.4 8.6 (8.4-10.2) mg/dL Total Bilirubin 0.5 0.9 (0.2-1.3) mg/dL AST 30 22 (14-36) U/L ALT 36 27 (9-52) U/L Alkaline Phosphatase 78 55 (38-126) U/L Total Protein 6.8 5.5 L (6.3-8.2) g/dL Albumin 4.2 3.3 L (3.5-5.0) g/dL
[2016-12-25] MEDS ORDERED: HEPARIN SODIUM,PORCINE 5,000 UNIT/ML 1 ML VIAL SQ STA (10:44)
[2016-12-25] MEDS ORDERED: IV FLUID CONTINUATION 200 ML IV ONE (11:00)
[2016-12-25] MEDS ORDERED: BUPIVACAIN-EPI 0.25%-1:200,000 30 ML VIAL SQ ONE (11:07)
[2016-12-25] MEDS ORDERED: LACTATED RINGERS 1,000 ML IV ONE (11:07)
--- NOTE | 2016-12-25 12:04 | P.OP ---
Date of Procedure: 12/25/16 Preoperative Diagnosis: Postoperative Diagnosis: Procedure(s) Performed: Implants: Indications for Procedure: Operative Findings: Description of Procedure: SURGEON: UZIEL THOMPSON MD HAY STACKER OPERATOR: None. PREOPERATIVE DIAGNOSES: 1. Right lower quadrant abdominal pain. 2. Acute appendicitis. 3. Leukocytosis. 4. History of previous gastric bypass. 5. Status post massive weight loss intentional over 130 pounds. 6. Rheumatoid arthritis. 7. Depression. 8. Seizure disorder. 9. Personal history of ventilator dependent respiratory failure with tracheostomy. 10. Previous history of abdominoplasty. POSTOPERATIVE DIAGNOSES: 1. Right lower quadrant abdominal pain. 2. Acute appendicitis with periappendicitis without rupture. 3. Leukocytosis. 4. History of previous gastric bypass. 5. Status post massive weight loss intentional over 130 pounds. 6. Rheumatoid arthritis. 7. Depression. 8. Seizure disorder. 9. Personal history of ventilator dependent respiratory failure with tracheostomy. 10. Previous history of abdominoplasty. PROCEDURES PERFORMED: 1. Diagnostic laparoscopy. 2. Laparoscopic appendectomy. ANESTHESIA: General with 30 mL 0.25% Marcaine with epinephrine. ESTIMATED BLOOD LOSS: 5 mL. SPECIMENS REMOVED: Appendix. COMPLICATIONS: None. OPERATIVE FINDINGS: 1. Acute appendicitis with necrosis along the mid body of the appendix without perforation. 2. Turbid peritoneal fluid consistent along the left pelvis. 3. Unremarkable small bowel and terminal ileum. 4. Small follicular cysts of 1 cm along the bilateral ovaries. 5. Liver unremarkable. 6. The colon was unremarkable INDICATIONS: The patient is a 41-year-old female who presents with less than a 24-hour history of right lower quadrant abdominal pain. She reported nausea, including anorexia. Ultrasound of the abdomen and pelvis was obtained demonstrating findings consistent with acute appendicitis. Benefits and risks, including possibility of open technique were described at length. Informed consent was obtained. DESCRIPTION OR PROCEDURE: Patient was brought to the operating room, laid in supine position. After general induction, the abdomen was prepped and draped in standard sterile fashion. Prior to incision, a timeout protocol was confirmed with surgical team regarding patient's name including procedure to be performed. Preoperative antibiotics were given intraoperatively. Additionally, bilateral SCDs including heparin 5000 units was administered. A transverse left upper quadrant incision was made after localizing the skin with anesthetic. A 0 degree 5 mm laparoscopic trocar entry was performed and entered into the peritoneal cavity. The abdomen was insufflated to 15 mmHg of pressure, which she tolerated well. Diagnostic laparoscopy demonstrated no injury to bowel, viscera or mesentery. Additionally, along the pelvis was free fluid with mild turbidity. A 5 mm port was placed just above the pubis. A separate all under direct visualization. Her umbilicus was surgically absent. A 12 mm port was placed along the midline at the level of the superior iliac crest. The patient was placed in Trendelenburg position with the right side up. A systematic view within the abdominal cavity was started with the small bowel which was unremarkable. Her gastric bypass was unremarkable without evidence of small bowel dilatation. The right ovary was unremarkable for large ovarian cysts. The left ovary was also within normal limits with the exception of physiological small cysts. The base of the cecum was without inflammation. The appendix was dilated along the body with transmural necrosis consistent with acute appendicitis. The base of the appendix was unremarkable. A 2 cm subperitoneal cyst was found along the right pelvis. Using in 22-gauge needle with negative suction, no fluid was aspirated from the cystic structure. A 45 mm Endo MARU echelon stapler was fired across using a jordan vascular load x 2. No arterial bleed was encountered. The staple line was completely hemostatic. The specimen was removed from the abdominal cavity with a 5-mm Endo Catch bag through the 12 mm trocar. The abdomen was irrigated with 1 L normal saline solution until aspirate was clear. All instruments and pneumoperitoneum were evacuated from the abdominal cavity. The fascial defect was reapproximated using 0 Vicryl Audrey Marie. A total of 30 mL 0.25% Marcaine with epinephrine was infiltrated in all wounds for postop analgesia. Dermabond was applied to the skin after reapproximating the incisions with 4-0 Monocryl as described. At the end of the procedure, needle, sponge, and instrument count was verified correct by surgical appliances salesperson. The patient had tolerated the procedure well, was taken to the postanesthesia care unit in stable condition. Intraoperative abdominal films were described and discussed with her family who were overall pleased with her level of care.
[2016-12-25 12:21] VITALS: RESP 16
[2016-12-25] MEDS ORDERED: POTASSIUM CHLORIDE ORAL LIQUID 40 MEQ/30 ML CUP PO ONE (13:15)
[2016-12-25] MEDS ORDERED: 0.9% NACL WITH KCL 40 MEQ/L 1,000 ML IV SCH (14:00)
[2016-12-25] MEDS ORDERED: ceFAZolin 2 GM in SODIUM CHLORIDE 0.9% 100 ML IVPB STA (15:49)
--- NOTE | 2016-12-25 20:20 | P.PN ---
Subjective Principal diagnosis: Acute appendicitis The patient is a 41-year-old female who presented with acute appendicitis. Findings were consistent with peritonitis without rupture. She reports her abdominal pain has improved. Her blood pressures have been low following surgery. She has been asymptomatic however. She is eager to be discharged home. Objective - Vital Signs Vital signs: Vital Signs Temp 97.2 F L 12/25/16 12:45 Pulse 59 L 12/25/16 14:15 Resp 16 12/25/16 12:45 BP 88/58 12/25/16 14:15 Pulse Ox 98 12/25/16 14:15 Intake & Output 12/24/16 12/25/16 12/25/16 18:59 06:59 18:59 Intake Total 700 Output Total 5 Balance 695 Weight 60.781 kg Intake: IV 700 Output: Estimated Blood Loss 5 Other: Voiding Method Toilet # Voids 1 1 - Exam GENERAL: Well developed and in no acute distress. Pleasant. HEENT: No sclera icterus. Extraocular movements grossly intact. Moist buccal mucosa. Head is atraumatic, normocephalic. Hears conversational speech. No nasal drainage. NECK: Supple without lymphadenopathy. No JV distention. CHEST: Non-labored respirations and equal bilateral excursions. CARDIOVASCULAR: Regular rate and rhythm. Palpable 2+ radial pulses. ABDOMEN: Soft. Nondistended. Incisions clean and intact without cellulitis. MUSCULOSKELETAL: No clubbing, cyanosis or edema. NEUROLOGIC: No focal or lateralizing signs. PSYCH: Appropriate affect. Alert and oriented to person, place and time. - Labs CBC & Chem 7: 12/25/16 08:59 12/25/16 08:59 Labs: Abnormal Lab Results - Last 24 Hours (Table) 12/24/16 12/25/16 12/25/16 Range/Units 22:10 08:59 08:59 Plt Count 120 L (150-450) k/uL Potassium 3.3 L (3.5-5.1) mmol/L Glucose 72 L (74-99) mg/dL Total Protein 5.5 L (6.3-8.2) g/dL Albumin 3.3 L (3.5-5.0) g/dL Urine Appearance Cloudy H (Clear) Urine Protein Trace H (Negative) Urine Ketones 1+ H (Negative) Ur Leukocyte Esterase Large H (Negative) Urine WBC 22 H (0-5) /hpf Ur Squamous Epith Cells 9 H (0-4) /hpf Urine Bacteria Few H (None) /hpf Urine Mucus Rare H (None) /hpf Assessment and Plan (1) Peritonitis Status: Acute (2) Acute appendicitis Status: Acute (3) Bariatric surgery status Status: Acute (4) Hypokalemia Status: Acute Plan: 1. I have recommended antibiotics postoperatively including IV fluid hydration to address low blood pressure. 2. She has personal history of previous adrenal insufficiency. Recommend cortisol level. Also recommend correction of adrenal insufficiency with hydrocortisone. 3. Correct hypokalemia.
[2016-12-25] MEDS ORDERED: QUEtiapine 100 MG TAB PO SCH (21:00)
[2016-12-25] MEDS: HYDROCORTISONE SUCCINATE 100 MG/2 ML VIAL IV SCH (21:13)
[2016-12-25] MEDS: OXcarbazepine 300 MG TAB PO SCH (21:13)
[2016-12-25] MEDS: POTASSIUM CHLORIDE 20 MEQ in WATER FOR INJECTION 1 100ML.BAG IVPB SCH ×2 (21:16→22:20)
[2016-12-25] MEDS: PREGABALIN 75 MG CAP PO SCH (21:16)
[2016-12-25 21:22] LABS: Basophils % (A) 0 %; CH 31.3; CHCM 33.8; Eosinophils % (A) 0 %; HCT 32.1 % (34.0-46.0); HDW 2.41; HGB 10.9 gm/dL (11.4-16.0); Luc # (Auto) 0.08; Luc % (Auto) 1; Lymphocytes # (A) 0.6 k/uL (1.0-4.8); Lymphocytes % (A) 9 %; MCH 31.7 pg (25.0-35.0); MCHC 34.1 g/dL (31.0-37.0); MCV 92.9 fL (80.0-100.0); Mean Platelet Volume 8.6; Monocytes # (A) 0.3 k/uL (0-1.0); Monocytes % (A) 5 %; Neutrophils # (A) 5.9 k/uL (1.3-7.7); Neutrophils % (A) 86 %; RBC 3.45 m/uL (3.80-5.40); RDW 12.9 % (11.5-15.5); WBC 6.9 k/uL (3.8-10.6); WBC (Perox) 7.57
[2016-12-25 21:53] LABS: Anion Gap 6 mmol/L; Blood Urea Nitrogen 10 mg/dL (7-17); Calcium 8.4 mg/dL (8.4-10.2); Carbon Dioxide 23 mmol/L (22-30); Chloride 112 mmol/L (98-107); Glucose 119 mg/dL (74-99); Non-African American GFR(MDRD) >60 (>60 ml/min/1.73 sqM); Potassium 4.4 mmol/L (3.5-5.1); Sodium 141 mmol/L (137-145)
[2016-12-25] MEDS: POTASSIUM CHLORIDE 20 MEQ, LIDOCAINE 2% INJ 20 MG in SODIUM CHLORIDE 0.9% 100 ML IVPB SCH (23:05)
[2016-12-26] MEDS: HYDROCORTISONE SUCCINATE 100 MG/2 ML VIAL IV SCH ×2 (01:41→07:15)
[2016-12-26] MEDS: POTASSIUM CHLORIDE 20 MEQ, LIDOCAINE 2% INJ 20 MG in SODIUM CHLORIDE 0.9% 100 ML IVPB SCH (03:21)
[2016-12-26 07:02] LABS: Basophils % (A) 0 %; CH 31.3; Eosinophils % (A) 0 %; HCT 34.1 % (34.0-46.0); HGB 11.4 gm/dL (11.4-16.0); Luc # (Auto) 0.05; Luc % (Auto) 1; Lymphocytes # (A) 0.6 k/uL (1.0-4.8); Lymphocytes % (A) 10 %; MCH 30.9 pg (25.0-35.0); MCHC 33.4 g/dL (31.0-37.0); MCV 92.5 fL (80.0-100.0); Mean Platelet Volume 8.2; Monocytes # (A) 0.1 k/uL (0-1.0); Monocytes % (A) 2 %; Neutrophils # (A) 5.3 k/uL (1.3-7.7); Neutrophils % (A) 87 %; RBC 3.69 m/uL (3.80-5.40); RDW 13.1 % (11.5-15.5); WBC 6.1 k/uL (3.8-10.6); WBC (Perox) 6.55
[2016-12-26 07:12] VITALS: TEMP 97.1
[2016-12-26] MEDS: PREGABALIN 75 MG CAP PO SCH (07:14)
[2016-12-26 07:17] LABS: Anion Gap 6 mmol/L; Blood Urea Nitrogen 9 mg/dL (7-17); Calcium 8.7 mg/dL (8.4-10.2); Carbon Dioxide 21 mmol/L (22-30); Chloride 114 mmol/L (98-107); Glucose 124 mg/dL (74-99); Non-African American GFR(MDRD) >60 (>60 ml/min/1.73 sqM); Potassium 4.1 mmol/L (3.5-5.1); Sodium 141 mmol/L (137-145)
[2016-12-26] MEDS ORDERED: PARoxetine 10 MG TAB PO SCH (09:00)
[2016-12-26] MEDS: OXcarbazepine 300 MG TAB PO SCH (09:29)
[2016-12-26] MEDS: MAGNESIUM SULFATE-D5W PMX 1 GM in DEXTROSE/WATER 1 100ML.BAG IVPB SCH ×2 (10:42→11:47)
--- NOTE | 2016-12-26 12:59 | P.DS ---
Providers Date of admission: 12/25/16 01:39 Expected date of discharge: 12/26/16 Attending physician: Janie Mishra Primary care physician: [facility] Hospital Course: The patient is a previously healthy 41-year-old female who presents with less than 1 day history of periumbilical with right lower quadrant abdominal pain that started last night. She presented to the ER where prior ultrasound of the abdomen demonstrated appendicitis. She presents for definitive surgical intervention on December 25 the patient underwent laparoscopic appendectomy diagnostic laparoscopy for acute appendicitis without perforation after surgery the blood pressure had been low patient was asymptomatic. IV fluid was initiated. Patient's potassium and magnesium were low this was corrected. Also correction of adrenal insufficiency with hydrocortisone On the day of discharge the magnesium was 1.8 which 2 g of Mag was given. Given the potassium was 4 0.1. White count 6.1. The blood pressure was 93/63 to 102/55 on room air sats are 97% Impression discharge diagnosis 1) Peritonitis Status: Acute (2) Acute appendicitis Status: Acute (3) Bariatric surgery status Status: Acute (4) Hypokalemia corrected resolved Status: Acute hypo-magnesium Personal history of previous adrenal insufficiency Present on admission right lower quadrant pain suspect due to acute appendicitis without rupture The above dictated assessment and findings were discussed with dr Mishra Impression and the plan of care have been dictated as directed. Renu Locke nurse practitioner acting as a scribe for dr Mishra Patient Condition at Discharge: Stable Plan - Discharge Summary New Discharge Prescriptions: Continue Pregabalin [Lyrica] 75 mg PO BID Omeprazole 40 mg PO DAILY #90 capsule. PARoxetine HCL [Paxil] 10 mg PO DAILY OXcarbazepine [Trileptal] 300 mg PO BID Butalb/Acetaminophen/Caffeine [Fioricet 50-325-40] 1 - 2 tab PO Q8H PRN PRN Reason: Migraine Headache QUEtiapine [SEROquel] 100 mg PO HS Discharge Medication List Pregabalin [Lyrica] 75 mg PO BID 03/17/16 [History] Omeprazole 40 mg PO DAILY #90 capsule. 04/15/16 [Rx] Butalb/Acetaminophen/Caffeine [Fioricet 50-325-40] 1 - 2 tab PO Q8H PRN [History] OXcarbazepine [Trileptal] 300 mg PO BID 07/14/16 [History] PARoxetine HCL [Paxil] 10 mg PO DAILY 07/14/16 [History] QUEtiapine [SEROquel] 100 mg PO HS 12/25/16 [History] Follow up Appointment(s)/Referral(s): Janie Mishra MD [STAFF PHYSICIAN] - 12/27/16 (Call to confirm time) Tushar Majano MD [Primary Care Provider] - 1-2 days Patient Instructions/Handouts: Laparoscopic Appendectomy (DC) Activity/Diet/Wound Care/Special Instructions: No bathtub soaks. May shower. May take Tylenol [id number] for pain. Discharge Disposition: HOME SELF-CARE
[2016-12-26 13:16] VITALS: BP 93/63; PULSE 64
== END 2016-12-26 14:25 | disposition home or self-care (01) ==
LOC: EC 21:20 → INTOOBSV 12-25 01:39 → 3SUR 12-25 01:39
PROVIDERS: ADMIT Surgery Plastic and Reconstructive Surgery; ATTEND Surgery Plastic and Reconstructive Surgery
DX: K35.3 Acute appendicitis with localized peritonitis (principal); E27.40 Unspecified adrenocortical insufficiency; E83.42 Hypomagnesemia; E87.6 Hypokalemia; F32.9 Major depressive disorder, single episode, unspecified; F43.10 Post-traumatic stress disorder, unspecified; K21.9 Gastro-esophageal reflux disease without esophagitis; K58.9 Irritable bowel syndrome, unspecified; M06.9 Rheumatoid arthritis, unspecified; G43.909 Migraine, unspecified, not intractable, without status migrainosus; G62.9 Polyneuropathy, unspecified; I83.90 Asymptomatic varicose veins of unspecified lower extremity; F41.9 Anxiety disorder, unspecified; N83.02 Follicular cyst of left ovary; N83.01 Follicular cyst of right ovary; Z79.899 Other long term (current) drug therapy; Z87.891 Personal history of nicotine dependence; Z98.84 Bariatric surgery status; Z88.5 Allergy status to narcotic agent; Z88.8 Allergy status to other drugs, medicaments and biological substances; Z88.6 Allergy status to analgesic agent; Z91.011 Allergy to milk products; Z86.14 Personal history of Methicillin resistant Staphylococcus aureus infection; Z82.49 Family history of ischemic heart disease and other diseases of the circulatory system; R63.0 Anorexia
CPT/HCPCS: 44970; 96366 ×2; 96367 ×2; 96375 ×3; 96376; 96361; 96365; 99285; 88304; 80053 ×2; 80048 ×2; 82533; 82150; 83690; 83735 ×2; 85025 ×3; 81001; 81025; 74000; 93975; 76705; 76830; G0378 ×2; J2001 ×3; J2250; J1644; J2710; J1720 ×2; J0690 ×2; J2405 ×2; J3480 ×2; J3010; J1885; J1170 ×2; J3475; J0295; J1100; J0330; J2704

== ENCOUNTER 2017-04-09 11:48 | Emergency (ER) | payer OTHER ==
[2017-04-09 12:26] VITALS: RESP 18
[2017-04-09] MEDS ORDERED: HYDROmorphone 1 MG/ML 1 ML SYRINGE IM STA (13:41)
[2017-04-09] MEDS ORDERED: METOCLOPRAMIDE 10 MG TAB PO STA (13:51)
--- NOTE | 2017-04-09 14:18 | ED ---
Neck Injury/Pain HPI - General Chief Complaint: Neck Pain/Injury Stated Complaint: neck pain, headache x 1 week Time Seen by Provider: 04/09/17 13:25 Mode of arrival: ambulatory Limitations: no limitations - History of Present Illness Initial Comments: 41 years old female presents with left-sided scalp pain and pain on the left side of the neck which is for about 210 days now she denies any fever no chills she denies any trauma to the neck at this point. She does have a history of migraines.She has been seeing sitting Dr. Cisneros and has She had some shots or injections in the occipital region of her headaches but there was good 4 months ago. Is able to turn her neck all the way to the right side but it hurts to move her neck to the left lower chest pain no shortness of breath no abdominal pain no symptoms of TIA or CVA. - Related Data Home Medications Medication Instructions Recorded Confirmed Pregabalin [Lyrica] 75 mg PO BID 03/17/16 12/25/16 Butalb/Acetaminophen/Caffeine 1 - 2 tab PO Q8H PRN 07/14/16 12/25/16 [Fioricet 50-325-40] OXcarbazepine [Trileptal] 300 mg PO BID 07/14/16 12/25/16 PARoxetine HCL [Paxil] 10 mg PO DAILY 07/14/16 12/25/16 QUEtiapine [SEROquel] 100 mg PO HS 12/25/16 12/25/16 Previous Rx's Medication Instructions Recorded Omeprazole 40 mg PO DAILY #90 capsule. 04/15/16 Amoxicillin 500 mg PO Q8H #30 capsule 04/09/17 HYDROmorphone [Dilaudid] 1 mg PO Q3H PRN #10 tab 04/09/17 Allergies Allergy/AdvReac Type Severity Reaction Status Date / Time meperidine HCl [From Demerol] Allergy Severe "BECAME Verified 04/09/17 12:26 BELIGERENT" Milk Containing Products Allergy Severe Nausea & Verified 04/09/17 12:26 [Dairy] Vomiting & Diarrhea guaifenesin [From Robitussin] Allergy Mild WHEEZING Verified 04/09/17 12:26 FROM COUGH SYRUP WITH CODEINE codeine Allergy Unknown Unknown Verified 04/09/17 12:26 zonisamide [From Zonegran] Allergy Anaphylaxis Verified 04/09/17 12:26 aspirin AdvReac "MAKES Verified 04/09/17 12:26 BLOOD TOO THIN" Review of Systems ROS Statement: Those systems with pertinent positive or pertinent negative responses have been documented in the HPI. ROS Other: All systems not noted in ROS Statement are negative. Past Medical History Past Medical History: GERD/Reflux, Rheumatoid Arthritis (RA) Additional Past Medical History / Comment(s): migraines, bilateral neuropathy( legs and hands)- legs can give out causing falls, hx IBS, hx swine flu 2008- was vented, varicose veins History of Any Multi-Drug Resistant Organisms: MRSA Date of last positivie culture/infection: 06/2009 MDRO Source:: LUNGS Past Surgical History: Bariatric Surgery, Section, Cholecystectomy, Hernia Repair, Tubal Ligation, Uterine Ablation Additional Past Surgical History / Comment(s): 06/22/15 Laparoscopic misty-en-y gastric bypass with EGD. PEG tube/later removed, Tracheostomy 2008 when she had the swine flu. Panniculectomy 07/25/16, 3 hernia removed Past Anesthesia/Blood Transfusion Reactions: Motion Sickness, Postoperative Nausea & Vomiting (PONV) Additional Past Anesthesia/Blood Transfusion Reaction / Comment(s): Pt states she has never received blood. Past Psychological History: Anxiety, Bipolar, Depression, PTSD Smoking Status: Current every day smoker Past Alcohol Use History: None Reported Past Drug Use History: None Reported - Past Family History Mother Family Medical History: Asthma, Congestive Heart Failure (CHF), COPD, Diabetes Mellitus, GERD/Reflux, Hypertension, Pneumonia, Sleep Apnea/CPAP/BIPAP Additional Family Medical History / Comment(s): varicose veins, enlarged heart. Father Family Medical History: Hypertension Additional Family Medical History / Comment(s): Father is living. General Exam - General Exam Comments Initial Comments: General: The patient is awake and alert, in no distress, and does not appear acutely ill. Skin: Skin is warm and dry and no rashes or lesions are noted. Examination of the scalp reveals some folliculitis no obvious muscle spasms noticed no focal tenderness over the cervical spine noticed no step off deformities noticed either over the cervical spine. She is nontender over the temporal areas or area of temporal arteritis. Eye: Pupils are equal, round and reactive to light, extra-ocular movements are intact; there is normal conjunctiva bilaterally. Ears, nose, mouth and throat: There are moist mucous membranes and no oral lesions. Neck: The neck is supple, there is no tenderness or JVD. Cardiovascular: There is a regular rate and rhythm. No murmur, rub or gallop is appreciated. Respiratory: To auscultation bilateral, no wheezing no rhonchi no distress respiratory hill noticed Gastrointestinal: Soft, non-distended, non-tender abdomen without masses or organomegaly noted. There is no rebound or guarding present. Bowel sounds are unremarkable. Back: There is no tenderness to palpation in the midline. There is no obvious deformity. Musculoskeletal: Normal ROM, no tenderness, There is no pedal edema. There is no calf tenderness or swelling. No cords were appreciated. Neurological: CN II-XII intact, Cranial nerves III through XII are intact. There are no obvious motor or sensory deficits. Coordination appears grossly intact. Speech is normal. Psychiatric: Cooperative, appropriate mood & affect, normal judgment. Limitations: no limitations Course Vital Signs 04/09/17 12:22 Temperature 98.6 F Pulse Rate 76 Respiratory 18 Rate Blood Pressure 132/84 O2 Sat by Pulse 100 Oximetry - Reevaluation(s) Reevaluation #1: 04/09/17 14:54 Patient was reassessed at [address] is normal so his cervical spine . On home on now antibiotics for folliculitis and no worrisome wall prescription of Dilaudid while headaches and she will follow-up with her neurologist Dr. Cisneros Disposition Clinical Impression: Headache, Folliculitis Disposition: HOME SELF-CARE Condition: Good Instructions: Cervical Sprain (ED) Prescriptions: Amoxicillin 500 mg PO Q8H #30 capsule HYDROmorphone [Dilaudid] 1 mg PO Q3H PRN #10 tab PRN Reason: Migraine Headache Referrals: Tushar Majano MD [Primary Care Provider] - 1-2 days
--- NOTE | 2017-04-09 14:29 | CT ---
EXAMINATION TYPE: CT brain wo con DATE OF EXAM: 04/09/2017 COMPARISON: 09/15/2016 HISTORY: Patient complains of posterior headache that radiates inferiorly into the neck x1 week. Pat ient has new onset left side face and arm numbness today. CT DLP: 935.5 mGycm. Automated Exposure Control for Dose Reduction was Utilized. TECHNIQUE: CT scan of the head is performed without contrast. FINDINGS: There is no acute intracranial hemorrhage, mass effect, or midline shift identified. The ventricles and sulci are within normal limits in size. The globes are intact and the visualized sin uses are clear. IMPRESSION: No acute intracranial hemorrhage, mass effect, or midline shift is seen. Unremarkable CT brain, unchanged from the prior.
--- NOTE | 2017-04-09 14:31 | XR ---
EXAMINATION TYPE: XR cervical spine comp DATE OF EXAM: 04/09/2017 TECHNIQUE: Frontal, lateral, oblique, swimmers, and open mouth view of the cervical spine are obtaine d. HISTORY: neck stiffness COMPARISON: None FINDINGS: The cervical spine is visualized in its entirety from C1 thru the top of T1 level, it is s atisfactory in alignment without evidence of acute fracture or dislocation. The pre-vertebral soft t issue appears within normal limits. The C1-C2 articulation is within normal limits on the open mouth view. The oblique images are within normal limits. There is straightening of the usual cervical andry dosis. IMPRESSION: 1. No acute fracture or dislocation is seen in the cervical spine. Neural foramen appear radiographic ally patent. 2. Straightening of the usual cervical lordosis, which may relate to muscular spasm.
[2017-04-09 15:12] VITALS: BP 133/72; PULSE 51; TEMP 97.1
== END 2017-04-09 15:11 | disposition home or self-care (01) ==
LOC: EC 11:48
DX: L73.9 Follicular disorder, unspecified (principal); R51 Headache; F31.9 Bipolar disorder, unspecified; F17.200 Nicotine dependence, unspecified, uncomplicated; Z86.14 Personal history of Methicillin resistant Staphylococcus aureus infection; Z86.69 Personal history of other diseases of the nervous system and sense organs; Z88.8 Allergy status to other drugs, medicaments and biological substances; Z88.5 Allergy status to narcotic agent; Z88.6 Allergy status to analgesic agent; Z91.011 Allergy to milk products; Z79.899 Other long term (current) drug therapy
CPT/HCPCS: 99284 ×2; 96372 ×2; 72050; 70450; J1170

== ENCOUNTER → 2017-06-21 | Outpatient (CLI) | payer OTHER ==
[2017-06-21 15:53] VITALS: BP 153/86; PULSE 65; RESP 16; TEMP 9707
--- NOTE | 2017-08-07 21:02 | P.PN ---
Subjective Progress Note Date: 06/21/17 DATE OF SERVICE: 06/21/2017 CHIEF COMPLAINT: Gastric bypass. HISTORY OF PRESENT ILLNESS: Jacinda Diamond is a 42-year-old female who is status post Dariana-en-Y gastric bypass in June of 2015. Her lifetime highest weight was 309 pounds. Today she comes in weighing 135 pounds. Her ideal body weight is 5 foot 6 frame is 154 pounds. She has lost 174 pounds. Percent excess weight loss is 112%. Body mass index has been reduced from 50 down to 21.8. She is status post panniculectomy September 2016. No reports of nausea or vomiting. No reports of dumping syndrome. She's tolerating diet. She comes in with complaints of bulging aling the right groin. PAST MEDICAL HISTORY: 1. Moderate obesity. 2. Anxiety. 3. Depression. 4. Osteoarthritis of the lower back. 5. Osteoarthritis of the bilateral hips. 6. Gastroesophageal reflux disease. 7. Posttraumatic stress disorder. 8. Neuropathy of the lower extremities. 9. Migraines. PAST SURGICAL HISTORY: 1. section. 2. Cholecystectomy. 3. Peg tube. 4. History tracheostomy secondary to vent-dependent respiratory failure. 5. Upper endoscopy with balloon dilatation. 6. Status post Dariana-en-Y gastric bypass. 7. Diagnostic laparoscopy, lysis of adhesions. 8. Panniculectomy, September 2016. MEDICATIONS: 1. Seroquel. 2. Inderal. 3. Paxil. 4. Multivitamins. 5. Omeprazole. 6. Trileptal. 7. Depakote 8. Fioricet ALLERGIES: CODEINE, EGGS, GUAIFENESIN, VICODIN, DEMEROL, OXYCONTIN, PENICILLIN, DARVOCET, ASPIRIN. SOCIAL HISTORY: Former tobacco use. FAMILY HISTORY: Notable for morbid obesity including diabetes. REVIEW OF SYSTEMS: MUSCULOSKELETAL: Has severe lower back pain. CONSTITUTIONAL: Her lifetime highest weight was 309 pounds. Today she comes in weighing 135 pounds. Her ideal body weight is 5 foot 6 frame is 154 pounds. She has lost 174 pounds. Percent excess weight loss is 112%. Body mass index has been reduced from 50 down to 21.8. GASTROINTESTINAL: No reports of dumping syndrome. Resolved gastroesophageal reflux disease. ENDOCRINE: No reports of diabetes or hypothyroidism. RESPIRATORY: Prior history of vent-dependent respiratory failure. No recent known history of pneumonia. Upper respiratory, resolution of obstructive sleep apnea. CARDIOVASCULAR: No reports of chest pain or palpitations. NEURO: No reports of stroke. Has chronic migraines. PSYCH: No reports of psychosis; however, history of depression. HEMATOLOGIC: No recent history of coagulopathy or blood clots. PHYSICAL EXAM: VITAL SIGNS: 5 foot 6, 135 pounds. Body mass index of 21.8. ABDOMEN: Soft, nontender, nondistended. No recurrent panniculitis. Swelling along the right groin consistent with inguinal hernia. GENERAL: Well-developed, pleasant female, no acute distress. HEENT: No sclerae icterus. Extraocular movements grossly intact. Well-healed scar from prior tracheostomy. No nasal drainage. RESPIRATORY: Nonlabored respirations. Equal bilateral excursions. CARDIOVASCULAR: Regular rate and regular rhythm. Palpable 2+ radial pulses. MUSCULOSKELETAL: No clubbing, cyanosis, or edema. NEURO: There are no focal or lateralizing signs. PSYCH: Appropriate affect. Alert and oriented to person, place and time. ASSESSMENT: 1. Morbid obesity due to excess caloric intake. 2. Body mass index reduced lifetime of 50 down to 21.8. 3. Status post Dariana-en-Y gastric bypass. 4. Status post massive weight loss of 174 pounds. 5. Right lower quadrant abdominal pain. 6. Right inguinal hernia. PLAN: 1. Recommend bariatric metabolic panel. 2. On exam, she has findings consistent right inguinal hernia. Recommend repair. 3. DVT prophylaxis. 4. Antibiotic prophylaxis. Objective - Vital Signs Vital signs: Vital Signs Temp 9707 F H 06/21/17 15:49 Pulse 65 06/21/17 15:49 Resp 16 06/21/17 15:49 BP 153/86 06/21/17 15:49 Pulse Ox
== END | disposition home or self-care (01) ==
LOC: BARWHC3 14:47
PROVIDERS: ATTEND Surgery Plastic and Reconstructive Surgery
DX: Z48.815 Encounter for surgical aftercare following surgery on the digestive system (principal); E66.01 Morbid (severe) obesity due to excess calories; R63.4 Abnormal weight loss; K40.90 Unilateral inguinal hernia, without obstruction or gangrene, not specified as recurrent; F41.9 Anxiety disorder, unspecified; F32.9 Major depressive disorder, single episode, unspecified; M47.816 Spondylosis without myelopathy or radiculopathy, lumbar region; M16.0 Bilateral primary osteoarthritis of hip; K21.9 Gastro-esophageal reflux disease without esophagitis; F43.10 Post-traumatic stress disorder, unspecified; G57.93 Unspecified mononeuropathy of bilateral lower limbs; G43.909 Migraine, unspecified, not intractable, without status migrainosus; Z90.49 Acquired absence of other specified parts of digestive tract; Z98.890 Other specified postprocedural states; Z68.21 Body mass index [BMI] 21.0-21.9, adult; Z98.84 Bariatric surgery status; Z79.899 Other long term (current) drug therapy; Z88.5 Allergy status to narcotic agent; Z91.012 Allergy to eggs; Z88.8 Allergy status to other drugs, medicaments and biological substances; Z88.0 Allergy status to penicillin; Z88.6 Allergy status to analgesic agent; Z87.891 Personal history of nicotine dependence
CPT/HCPCS: 99211

== ENCOUNTER → 2017-07-19 | Outpatient (CLI) | payer OTHER ==
[2017-07-19 14:44] VITALS: BMI 21.9
[2017-07-19 14:57] VITALS: BP 106/65; PULSE 58; RESP 16
[2017-07-19 15:50] VITALS: TEMP 98.6
[2017-07-19 18:02] LABS: Partial Thromboplastin Time 23.6 sec (22.0-30.0)
[2017-07-19 18:03] LABS: HCT 40.1 % (34.0-46.0); MCH 30.8 pg (25.0-35.0); MCHC 32.4 g/dL (31.0-37.0); MCV 94.8 fL (80.0-100.0); Mean Platelet Volume 8.4; Platelet Count 188 k/uL (150-450); RBC 4.23 m/uL (3.80-5.40); RDW 11.8 % (11.5-15.5); WBC 6.2 k/uL (3.8-10.6)
[2017-07-19 18:04] LABS: ALT 49 U/L (9-52); AST 35 U/L (14-36); Albumin 3.9 g/dL (3.5-5.0); Alkaline Phosphatase 58 U/L (38-126); Anion Gap 7 mmol/L; Blood Urea Nitrogen 9 mg/dL (7-17); Calcium 9.2 mg/dL (8.4-10.2); Carbon Dioxide 30 mmol/L (22-30); Chloride 101 mmol/L (98-107); Cholesterol 157 mg/dL (<200); Glucose 73 mg/dL (74-99); HDL Cholesterol 70 mg/dL (40-60); LDL Cholesterol,Calculated 76 mg/dL (0-99); Phosphorus 4.5 mg/dL (2.5-4.5); Potassium 4.5 mmol/L (3.5-5.1); Sodium 138 mmol/L (137-145); Total Bilirubin 0.3 mg/dL (0.2-1.3); Total Protein 6.1 g/dL (6.3-8.2); Triglycerides 57 mg/dL (<150)
[2017-07-19 18:10] LABS: INR 1.1 (<1.2)
[2017-07-20 01:45] LABS: Iron Saturation 21.04 (12.00-45.00)
[2017-07-20 02:01] LABS: Parathyroid Hormone Intact 55.6 pg/mL (14.0-72.0)
[2017-07-20 04:49] LABS: Hemoglobin A1C 4.6 % (4.0-6.0)
[2017-07-21 02:45] LABS: Vitamin B1 56 ug/L (38-122)
[2017-07-21 06:32] LABS: Vitamin A 34 ug/dL (38-106)
--- NOTE | 2017-09-09 13:36 | P.PN ---
Subjective Progress Note Date: 07/19/17 DATE OF SERVICE: 07/19/2017 CHIEF COMPLAINT: Gastric bypass. HISTORY OF PRESENT ILLNESS: Jacinda Diamond is a 42-year-old female who is status post Dariana-en-Y gastric bypass in June of 2015. Her lifetime highest weight was 309 pounds. Today she comes in weighing 136 pounds. Her ideal body weight is 5 foot 6 frame is 154 pounds. She has lost 173 pounds. Percent excess weight loss is 112%. Body mass index has been reduced from 50 down to 22.0. She is status post panniculectomy September 2016. She reports increasing right groin swelling special lifting. She also reports a bulge. Separately, she also complains of severe headaches for which she sees a neurologist. She has been taking naproxen. She is using omeprazole and antrum. With the severity of her right groin bulge , she comes in for surgical intervention. PAST MEDICAL HISTORY: 1. Moderate obesity. 2. Anxiety. 3. Depression. 4. Osteoarthritis of the lower back. 5. Osteoarthritis of the bilateral hips. 6. Gastroesophageal reflux disease. 7. Posttraumatic stress disorder. 8. Neuropathy of the lower extremities. 9. Migraines. PAST SURGICAL HISTORY: 1. section. 2. Cholecystectomy. 3. Peg tube. 4. History tracheostomy secondary to vent-dependent respiratory failure. 5. Upper endoscopy with balloon dilatation. 6. Status post Dariana-en-Y gastric bypass. 7. Diagnostic laparoscopy, lysis of adhesions. 8. Panniculectomy, September 2016. MEDICATIONS: 1. Seroquel. 2. Inderal. 3. Paxil. 4. Multivitamins. 5. Omeprazole. 6. Trileptal. 7. Depakote 8. Fioricet ALLERGIES: CODEINE, EGGS, GUAIFENESIN, VICODIN, DEMEROL, OXYCONTIN, PENICILLIN, DARVOCET, ASPIRIN. SOCIAL HISTORY: Former tobacco use. FAMILY HISTORY: Notable for morbid obesity including diabetes. REVIEW OF SYSTEMS: MUSCULOSKELETAL: Has severe lower back pain. CONSTITUTIONAL: Her lifetime highest weight was 309 pounds. Today she comes in weighing 136 pounds. Her ideal body weight is 5 foot 6 frame is 154 pounds. She has lost 173 pounds. Percent excess weight loss is 112%. Body mass index has been reduced from 50 down to 22.0 GASTROINTESTINAL: No reports of dumping syndrome. Resolved gastroesophageal reflux disease. ENDOCRINE: No reports of diabetes or hypothyroidism. RESPIRATORY: Prior history of vent-dependent respiratory failure. No recent known history of pneumonia. Upper respiratory, resolution of obstructive sleep apnea. CARDIOVASCULAR: No reports of chest pain or palpitations. NEURO: No reports of stroke. Has chronic migraines. PSYCH: No reports of psychosis; however, history of depression. HEMATOLOGIC: No recent history of coagulopathy or blood clots. PHYSICAL EXAM: VITAL SIGNS: 5 foot 6, 136 pounds. Body mass index of 22.0. Vital Signs Temp 98.6 F 07/19/17 14:53 Pulse 58 L 07/19/17 14:53 Resp 16 07/19/17 14:53 BP 106/65 07/19/17 14:53 Pulse Ox ABDOMEN: Soft, nontender, nondistended. No recurrent panniculitis. Swelling along the right groin consistent with inguinal hernia. GENERAL: Well-developed, pleasant female, no acute distress. HEENT: No sclerae icterus. Extraocular movements grossly intact. Well-healed scar from prior tracheostomy. No nasal drainage. RESPIRATORY: Nonlabored respirations. Equal bilateral excursions. CARDIOVASCULAR: Regular rate and regular rhythm. Palpable 2+ radial pulses. MUSCULOSKELETAL: No clubbing, cyanosis, or edema. NEURO: There are no focal or lateralizing signs. PSYCH: Appropriate affect. Alert and oriented to person, place and time. LABS: Laboratory Last Values WBC 6.2 k/uL (3.8-10.6) 07/19/17 15:35 RBC 4.23 m/uL (3.80-5.40) 07/19/17 15:35 Hgb 13.0 gm/dL (11.4-16.0) 07/19/17 15:35 Hct 40.1 % (34.0-46.0) 07/19/17 15:35 MCV 94.8 fL (80.0-100.0) 07/19/17 15:35 MCH 30.8 pg (25.0-35.0) 07/19/17 15:35 MCHC 32.4 g/dL (31.0-37.0) 07/19/17 15:35 RDW 11.8 % (11.5-15.5) 07/19/17 15:35 Plt Count 188 k/uL (150-450) 07/19/17 15:35 PT 11.0 sec (9.0-12.0) 07/19/17 15:35 INR 1.1 (<1.2) 07/19/17 15:35 APTT 23.6 sec (22.0-30.0) 07/19/17 15:35 Sodium 138 mmol/L (137-145) 07/19/17 15:35 Potassium 4.5 mmol/L (3.5-5.1) 07/19/17 15:35 Chloride 101 mmol/L (98-107) 07/19/17 15:35 Carbon Dioxide 30 mmol/L (22-30) 07/19/17 15:35 Anion Gap 7 mmol/L 07/19/17 15:35 BUN 9 mg/dL (7-17) 07/19/17 15:35 Creatinine 0.69 mg/dL (0.52-1.04) 07/19/17 15:35 Est GFR (MDRD) Af Amer >60 (>60 ml/min/1.73 sqM) 07/19/17 15:35 Est GFR (MDRD) Non-Af >60 (>60 ml/min/1.73 sqM) 07/19/17 15:35 Glucose 73 mg/dL (74-99) L 07/19/17 15:[address] Glu mg/dL 85 07/19/17 15:35 Hemoglobin A1c 4.6 % (4.0-6.0) 07/19/17 15:35 Calcium 9.2 mg/dL (8.4-10.2) 07/19/17 15:35 Phosphorus 4.5 mg/dL (2.5-4.5) 07/19/17 15:35 Magnesium 2.0 mg/dL (1.6-2.3) 07/19/17 15:35 Iron 65 ug/dL (50-170) 07/19/17 15:35 TIBC 309 ug/dL (228-460) 07/19/17 15:35 Iron Saturation 21.04 (12.00-45.00) 07/19/17 15:35 Ferritin 80.0 ng/mL (10.0-291.0) 07/19/17 15:35 Total Bilirubin 0.3 mg/dL (0.2-1.3) 07/19/17 15:35 AST 35 U/L (14-36) 07/19/17 15:35 ALT 49 U/L (9-52) 07/19/17 15:35 Alkaline Phosphatase 58 U/L (38-126) 07/19/17 15:35 Total Protein 6.1 g/dL (6.3-8.2) L 07/19/17 15:35 Albumin 3.9 g/dL (3.5-5.0) 07/19/17 15:35 Prealbumin 21.0 mg/dL (18.0-42.0) 07/19/17 15:35 Triglycerides 57 mg/dL (<150) 07/19/17 15:35 Cholesterol 157 mg/dL (<200) 07/19/17 15:35 LDL Cholesterol, Calc 76 mg/dL (0-99) 07/19/17 15:35 HDL Cholesterol 70 mg/dL (40-60) H 07/19/17 15:35 Vitamin A 34 ug/dL (38-106) L 07/19/17 15:35 Vitamin B1 56 ug/L (38-122) 07/19/17 15:35 Vitamin B12 208.0 pg/mL (200.0-944.0) 07/19/17 15:35 Vitamin D 25-Hydroxy 10.5 ng/mL (30.0-100.0) L 07/19/17 15:35 Folate 8.0 ng/mL 07/19/17 15:35 TSH 0.960 mIU/L (0.465-4.680) 07/19/17 15:35 PTH Intact 55.6 pg/mL (14.0-72.0) 07/19/17 15:35 Copper 834 ug/L (810-1990) 07/19/17 15:35 Selenium 126 mcg/L (63-160) 07/19/17 15:35 Zinc 70 ug/dL (60-130) 07/19/17 15:35 ASSESSMENT: 1. Morbid obesity due to excess caloric intake. 2. Body mass index reduced lifetime of 50 down to 22.0. 3. Status post Dariana-en-Y gastric bypass. 4. Status post massive weight loss of 174 pounds. 5. Right lower quadrant abdominal pain. 6. Right inguinal hernia. 7. Vitamin D deficiency. 8. Vitamin A deficiency. PLAN: 1. Recommend vitamin D supplement. 2. Recommend vitamin A supplement. 3. All labs were reviewed demonstrating adequate protein intake. 4. Her weight loss otherwise has been fairly stable. 5. She has persistent right groin pain and swelling. Clinical symptoms highly suspicious for right inguinal hernia. Surgical intervention with laparoscopic right inguinal hernia repair was described. 6. DVT prophylaxis. 7. Antibiotic prophylaxis. Objective - Vital Signs Vital signs: Intake & Output 07/18/17 07/19/17 07/19/17 18:59 06:59 18:59 Weight 61.689 kg - Labs CBC & Chem 7: 07/19/17 15:35 07/19/17 15:35
== END | disposition home or self-care (01) ==
LOC: BARWHC3 13:08
PROVIDERS: ATTEND Surgery Plastic and Reconstructive Surgery
DX: Z48.815 Encounter for surgical aftercare following surgery on the digestive system (principal); E66.01 Morbid (severe) obesity due to excess calories; R63.4 Abnormal weight loss; K40.90 Unilateral inguinal hernia, without obstruction or gangrene, not specified as recurrent; E55.9 Vitamin D deficiency, unspecified; F41.9 Anxiety disorder, unspecified; F32.9 Major depressive disorder, single episode, unspecified; M47.816 Spondylosis without myelopathy or radiculopathy, lumbar region; M16.0 Bilateral primary osteoarthritis of hip; K21.9 Gastro-esophageal reflux disease without esophagitis; E21.1 Secondary hyperparathyroidism, not elsewhere classified; E89.1 Postprocedural hypoinsulinemia; D50.9 Iron deficiency anemia, unspecified; K90.9 Intestinal malabsorption, unspecified; K76.9 Liver disease, unspecified; N19 Unspecified kidney failure; K50.90 Crohn's disease, unspecified, without complications; E50.9 Vitamin A deficiency, unspecified; Z68.22 Body mass index [BMI] 22.0-22.9, adult; Z90.49 Acquired absence of other specified parts of digestive tract; Z87.891 Personal history of nicotine dependence; Z79.899 Other long term (current) drug therapy; Z88.5 Allergy status to narcotic agent; Z91.012 Allergy to eggs; Z88.8 Allergy status to other drugs, medicaments and biological substances; Z88.0 Allergy status to penicillin; Z88.6 Allergy status to analgesic agent; Z98.84 Bariatric surgery status
CPT/HCPCS: 84255; 84134; 84425; 80061; 80053; 82607; 82728; 82525; 82746; 83540; 83550; 83735; 84100; 84443; 84590; 84630; 85027; 85610; 85730; 82306; 83970; 83036; 97803; 36415; G0463; 99211

== ENCOUNTER → 2017-07-20 | Outpatient (CLI) | payer OTHER ==
--- NOTE | 2017-07-21 08:34 | MR ---
EXAMINATION TYPE: MR angio head wo con DATE OF EXAM: 07/20/2017 COMPARISON: NONE HISTORY: Migraine TECHNIQUE: Utilizing 3-D vprt-or-pavcog intracranial MRA of the [place] was performed. FINDINGS: The vertebrobasilar and carotid systems are patent. There is no sizable aneurysm or vascular malform ation. IMPRESSION: 1. No evidence of vascular malformation or sizable aneurysm.
--- NOTE | 2017-07-21 13:20 | MR ---
EXAMINATION TYPE: MR brain wo con DATE OF EXAM: 07/20/2017 COMPARISON: NONE HISTORY: Migraine T1-weighted sagittal, T2, FLAIR, and diffusion axial, and T2 coronal coronal views of the brain are s ubmitted. There is no evidence of acute ischemia. The ventricles, basal cisterns, and sulci overlying the conv exities are consistent with the patient's age. There is no mass effect. Craniocervical junction maintained. Sella turcica has a normal appearance. No cerebellopontine angle mass. Changes of chronic sinusitis. White matter: There are one or 2 puncta te less than 5 mm lesion seen within the right parietal and frontal white matter. IMPRESSION: 1. No acute intracranial process. Minimal nonspecific white matter changes.
== END | disposition home or self-care (01) ==
LOC: RADMRIMAIN 20:04
PROVIDERS: ATTEND Psychiatry & Neurology Neurology
DX: R90.89 Other abnormal findings on diagnostic imaging of central nervous system (principal); G43.009 Migraine without aura, not intractable, without status migrainosus
CPT/HCPCS: 70544; 70551

== ENCOUNTER 2017-08-14 08:30 | Day surgery (SDC) | payer OTHER ==
[2017-08-07 11:50] VITALS: BMI 21.6
--- NOTE | 2017-08-14 08:08 | P.GSHP ---
History of Present Illness H&P Date: 08/14/17 CHIEF COMPLAINT: Inguinal hernia, right. HISTORY OF PRESENT ILLNESS: The patient is a 42-year-old female who presents with a history of swelling and pain along the right groin. She's noted increased swelling including pain of the area. Now she presents for repair of her inguinal hernia. PAST MEDICAL HISTORY: Please see list. PAST SURGICAL HISTORY: Please see list. MEDICATIONS: Please see list. ALLERGIES: Please see list. SOCIAL HISTORY: No illicit drug use FAMILY HISTORY: No reports of Crohn disease or ulcerative colitis. REVIEW OF ORGAN SYSTEMS: CONSTITUTIONAL: No reports of fevers or chills. No reports of weight loss despite prior attempts. GI: Denies any blood in stools or constipation. PHYSICAL EXAM: VITAL SIGNS: Stable GENERAL: Well-developed pleasant female in no acute distress. HEENT: No scleral icterus. Extraocular movements grossly intact. Moist buccal mucosa. NECK: Supple without lymphadenopathy. CHEST: Unlabored respirations. Equal bilateral excursions. CARDIOVASCULAR: Regular rate and rhythm. Distal 2+ pulses. ABDOMEN: Soft, nondistended. No peritoneal signs. Palpable defect of the right groin. MUSCULOSKELETAL: No clubbing, cyanosis, or edema. ASSESSMENT: 1. Inguinal hernia, right initial and symptomatic. PLAN: 1. Recommend proceeding with a robotic inguinal repair, right, with mesh with possible bilateral approach. 2. Benefits and risks of surgical intervention was discussed including possibility of open technique. 3. DVT prophylaxis. 4. Antibiotic prophylaxis. Past Medical History Past Medical History: GERD/Reflux, Rheumatoid Arthritis (RA) Additional Past Medical History / Comment(s): migraines, bilateral neuropathy( legs and hands)- legs can give out causing falls, hx IBS, hx swine flu 2008- was INTUBATED, varicose veins, DDD, INGUINAL HERNIA History of Any Multi-Drug Resistant Organisms: MRSA Date of last positivie culture/infection: 06/2009 MDRO Source:: LUNGS Past Surgical History: Appendectomy, Bariatric Surgery, Section, Cholecystectomy, Hernia Repair, Tubal Ligation, Uterine Ablation Additional Past Surgical History / Comment(s): 06/22/15 Laparoscopic misty-en-y gastric bypass with EGD. PEG tube/later removed, Tracheostomy 2008 when she had the swine flu. Panniculectomy 07/25/16, 3 ABDOMINAL hernias removed Past Anesthesia/Blood Transfusion Reactions: Motion Sickness, Postoperative Nausea & Vomiting (PONV) Additional Past Anesthesia/Blood Transfusion Reaction / Comment(s): Pt states she has never received blood. Smoking Status: Former smoker - Past Family History Mother Family Medical History: Asthma, Congestive Heart Failure (CHF), COPD, Diabetes Mellitus, GERD/Reflux, Hypertension, Pneumonia, Sleep Apnea/CPAP/BIPAP Additional Family Medical History / Comment(s): varicose veins, enlarged heart. Father Family Medical History: Hypertension Additional Family Medical History / Comment(s): Father is living. Medications and Allergies Home Medications Medication Instructions Recorded Confirmed Type Omeprazole 40 mg PO DAILY #90 capsule. 04/15/16 08/07/17 Rx Butalb/Acetaminophen/Caffeine 1 - 2 tab PO Q8H PRN 07/14/16 08/07/17 History [Fioricet 50-325-40] OXcarbazepine [Trileptal] 900 mg PO HS 07/14/16 08/07/17 History QUEtiapine [SEROquel] 150 mg PO HS 12/25/16 08/07/17 History PARoxetine [Paxil] 20 mg PO QAM 04/09/17 08/07/17 History Divalproex Sodium [Depakote ER] 250 mg PO HS 08/07/17 08/07/17 History Pediatric Multivitamin No.30 4 tab PO DAILY 08/07/17 08/07/17 History [Multivitamin Children's Gummies] Propranolol HCl [Inderal LA] 160 mg PO HS 08/07/17 08/07/17 History Allergies Allergy/AdvReac Type Severity Reaction Status Date / Time meperidine HCl [From Demerol] Allergy Severe "BECAME Verified 08/07/17 11:42 BELIGERENT" Milk Containing Products Allergy Severe Nausea & Verified 08/07/17 11:42 [Dairy] Vomiting & Diarrhea guaifenesin [From Robitussin] Allergy Mild WHEEZING Verified 08/07/17 11:42 FROM COUGH SYRUP WITH CODEINE codeine Allergy Unknown Wheezing Verified 08/07/17 11:43 zonisamide [From Zonegran] Allergy Anaphylaxis Verified 08/07/17 11:42 aspirin AdvReac "MAKES Verified 08/07/17 11:42 BLOOD TOO THIN" NSAIDS (Non-Steroidal AdvReac DOES NOT Verified 08/07/17 11:42 Anti-Inflamma USE R/T BARIATRIC SX
[~2017-08-14 08:30] MED LIST changes: -ACETAMINOPHEN IV (For NPO) 1,000 MG in EMPTY BAG 1 BAG IVPB ONE; -ACETAMINOPHEN TAB 500 MG TAB PO ONE; -BUPIVACAINE LIPOSOME/PF 1.3% 20 ML, BUPIVACAIN-EPI 0.5%-1:200,000 25 ML, SODIUM CHLORID... MISCELLANE ONE; -LACTATED RINGERS 1,000 ML IV SCH; +MIDAZOLAM 2 MG/2 ML VIAL IV PRN; +ceFAZolin IN SWFI 2 GM/20 ML SYRINGE IVP ONE
[2017-08-14] MEDS: LACTATED RINGERS 1,000 ML IV SCH (08:59)
[2017-08-14] MEDS ORDERED: BUPIVACAINE (PF) 0.25% 30 ML VIAL SQ ONE ×3 (10:53→11:18)
[2017-08-14] MEDS ORDERED: PROPOFOL 10 MG/ML 20 ML VIAL IV ONE (10:56)
[2017-08-14] MEDS ORDERED: LIDOCAINE 1% INJ 10MG/ML (20 ML MDV) ONE (10:56)
[2017-08-14] MEDS ORDERED: SUCCINYLCHOLINE CHLORIDE 100 MG/5 ML SYR IV ONE (10:56)
[2017-08-14] MEDS ORDERED: NEOSTIGMINE 1 MG/ML 10 ML VIAL ONE (10:56)
[2017-08-14] MEDS ORDERED: fentaNYL (PF) 50 MCG/ML 2 ML AMP ONE (10:56)
[2017-08-14] MEDS ORDERED: MIDAZOLAM 2 MG/2 ML VIAL ONE (10:56)
[2017-08-14] MEDS ORDERED: GLYCOPYRROLATE 0.2 MG/ML 2 ML VIAL ONE (10:56)
[2017-08-14] MEDS ORDERED: ePHEDrine 50 MG/ML 1 ML AMP ONE (10:56)
[2017-08-14] MEDS ORDERED: ROCURONIUM BROMIDE 10 MG/ML 10 ML VIAL IV ONE (10:56)
[2017-08-14] MEDS ORDERED: LACTATED RINGERS 1,000 ML IV ONE (12:30)
--- NOTE | 2017-08-14 12:38 | P.PCN ---
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
[2017-08-14 12:53] VITALS: TEMP 97.6
[2017-08-14] MEDS: HYDROmorphone 0.5 MG/0.5 ML SYRINGE IVP PRN ×4 (13:19→13:40)
[2017-08-14] MEDS ORDERED: diphenhydrAMINE 50 MG/ML 1 ML VIAL IVP ONE ×2 (14:10→14:57)
[2017-08-14] MEDS ORDERED: HYDROcodone/APAP 7.5-325MG 1 EACH TAB PO ONE (14:58)
[2017-08-14 15:18] VITALS: BP 98/45; PULSE 53; RESP 16
--- NOTE | 2017-09-06 08:09 | P.OP ---
Date of Procedure: 08/14/17 Description of Procedure: SURGEON: UZIEL MISHRA MD STAKER SURVEYING: 1. VALENTINO PARIKH PREOPERATIVE DIAGNOSES: 1. Right lower quadrant abdominal pain. 2. Right inguinal hernia. 3. Morbid obesity due to excess caloric intake, resolved. 4. Body mass index reduced lifetime of 50 down to 21.8. 5. Status post Dariana-en-Y gastric bypass. 6. Status post massive weight loss of 174 pounds. 7. Seizure disorder. 8. Rheumatoid arthritis. 9. Migraines. 10. Upper and lower extremity neuropathy. 11. Right inguinal swelling. POSTOPERATIVE DIAGNOSES: 1. Right lower quadrant abdominal pain. 2. Right inguinal hernia. 3. Morbid obesity due to excess caloric intake, resolved. 4. Body mass index reduced lifetime of 50 down to 21.8. 5. Status post Dariana-en-Y gastric bypass. 6. Status post massive weight loss of 174 pounds. 7. Seizure disorder. 8. Rheumatoid arthritis. 9. Migraines. 10. Upper and lower extremity neuropathy. 11. Right inguinal swelling. 12. 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 Robotic-assisted da Liat Xi laparoscopic right groin exploration. 2. Robotic-assisted da Liat Xi laparoscopic excision of right lower abdominal wall intraperitoneal tumor, over 4 cm. 3. Robotic-assisted da Liat Xi laparoscopic right inguinal hernia repair via transabdominal approach without mesh ANESTHESIA: General with local anesthetic ESTIMATED BLOOD LOSS: 10 mL. SPECIMENS REMOVED: other (Intraperitoneal tumor) COMPLICATIONS: None. Condition: stable Disposition: same day INDICATIONS: The patient is a 42-year-old female who presents with history of right lower quadrant including right groin swelling and pain over 1 year. Now presents for definitive surgical intervention. Laparoscopic versus open and robotic approaches were discussed. Benefits and risks including bleeding, infection, chronic groin pain and possibility of open technique were reviewed. Placement of mesh was also described. Informed consent was obtained. DESCRIPTION: In the preoperative area, the patient was marked with indelible marker along right groin. The patient was brought to the operating room and initially laid in supine position. After general induction, the abdomen had been prepped and draped in standard sterile fashion. Ioban draping was also placed. The patient had previously voided. Prior to incision, a timeout protocol was confirmed with surgical team regarding patient's name including procedures to be performed. Initial positioning for the robotic assisted ports were selected 15 cm superior to the target anatomy, 0 degree 5 mm laparoscopic trocar entry was performed at the left upper quadrant. The abdomen was insufflated to 15 mmHg which she had tolerated well. Diagnostic laparoscopy demonstrated unremarkable left groin; however, along the right groin a protruding mass deep to the periteoneum was identified at the right lower quadrant superior to the inguinal area. Next, along the right upper abdomen, 8 cm from the camera port, an 8 mm robotic trocar was placed under direct visualization. An 8-mm camera port was placed along the iatrogenically absent umbilicus. The [employer] robot was primed, draped, and prepared for docking along the left side of the patient. I then went to the [employer] console. The assistant to the director was at bedside for exchange of the robotic instruments including vessel sealer, scissors, and graspers. The peritoneum around the 4-cm mass was scored with scissors using cautery. As the peritoneum was entered the mass was dissected free from its surround tissue of the abdominal wall towards the right groin. The mass had a stalk-like extension towards the right groin as a direct inguinal hernia. The stalk appeared fibrotic however extension to the side wall of the bladder could not be excluded. A right groin exploration was performed to exclude involvement of the bladder. Using continuous retraction on the tumor as well as external pressure along the right groin, the entirety of the tumor was excised along the base of the fibrous stalk using a 45-mm blue load robotic stapler. Hemostasis was checked. The remaining right groin defect was medial to the epigastric vessels. No indirect inguinal hernia was found. The peritoneal defect was closed using running suture of 0-VLOC and 2-0 VLOC. The defect was found to be completely closed after removal of the external pressure along the right groin. Mesh reinforcement was avoided with the finding of a tumor of the abdominal wall. Hemostasis was excellent throughout the case. The robot was undocked from the patient's bedside. . I then rescrubbed into the case. Along the left upper quadrant, the specimen was removed with an Endocatch bag. The fascial defect was re-approximated using 0-Vicryl and a Eulogio Bhavani. All instruments and pneumoperitoneum were evacuated from the abdominal cavity. The rest of incisions were re-approximated using 4-0 Monocryl in an interrupted subcuticular fashion. All local anesthetic was used. Dermabond was applied to the skin. At the end of the procedure, the needle, sponge and instrument counts were verified correct by the surgical specialist. The patient had tolerated the procedure well and was taken to the postanesthesia care unit in stable condition. Postoperative images were reviewed with the patient's family who were pleased with the level of care. Operative Findings: 1. Intraperitoneal tumor along the right groin with extension from the right lower quadrant with excision using stapler 2. Unremarkable left groin. 3. Unremarkable small bowel. 4. Unremarkable bilateral ovaries, uterus, and fallopian tubes. Plan - Discharge Summary New Discharge Prescriptions: Continue OXcarbazepine [Trileptal] 900 mg PO HS Butalb/Acetaminophen/Caffeine [Fioricet 50-325-40] 1 - 2 tab PO Q8H PRN PRN Reason: Migraine Headache QUEtiapine [SEROquel] 150 mg PO HS PARoxetine [Paxil] 20 mg PO QAM Propranolol HCl [Inderal LA] 160 mg PO HS Divalproex Sodium [Depakote ER] 250 mg PO HS No Action Pediatric Multivitamin No.30 [Multivitamin Children's Gummies] 4 tab PO DAILY Ergocalciferol [Vitamin D2 (DRISDOL)] 50,000 unit PO Q7D #12 cap Vitamin A 240 mcg PO DAILY Discharge Medication List Butalb/Acetaminophen/Caffeine [Fioricet 50-325-40] 1 - 2 tab PO Q8H PRN [History] OXcarbazepine [Trileptal] 900 mg PO HS 07/14/16 [History] QUEtiapine [SEROquel] 150 mg PO HS 12/25/16 [History] PARoxetine [Paxil] 20 mg PO QAM 04/09/17 [History] Divalproex Sodium [Depakote ER] 250 mg PO HS 08/07/17 [History] Pediatric Multivitamin No.30 [Multivitamin Children's Gummies] 4 tab PO DAILY [History] Propranolol HCl [Inderal LA] 160 mg PO HS 08/07/17 [History] Ergocalciferol [Vitamin D2 (DRISDOL)] 50,000 unit PO Q7D #12 cap 08/17/17 [Rx] Vitamin A 240 mcg PO DAILY 09/05/17 [History] Follow up Appointment(s)/Referral(s): Uziel Mishra MD [STAFF PHYSICIAN] - 08/17/17 2:30 pm ([facility]) Patient Instructions/Handouts: *Surgery [facility] - (Anesthesia) Discharge Instructions Outpatient Surgery, Laparoscopic Herniorrhaphy (DC), Abdominal Binder (GEN) Activity/Diet/Wound Care/Special Instructions: No lifting over 4 pounds in 4 weeks. May shower. No bath tub soaksr.. Discharge Disposition: HOME SELF-CARE
== END 2017-08-14 16:37 | disposition home or self-care (01) ==
LOC: OR 08:30
PROVIDERS: ATTEND Surgery Plastic and Reconstructive Surgery
DX: C76.3 Malignant neoplasm of pelvis (principal); K40.90 Unilateral inguinal hernia, without obstruction or gangrene, not specified as recurrent; K21.9 Gastro-esophageal reflux disease without esophagitis; M06.9 Rheumatoid arthritis, unspecified; G43.909 Migraine, unspecified, not intractable, without status migrainosus; G40.909 Epilepsy, unspecified, not intractable, without status epilepticus; G62.9 Polyneuropathy, unspecified; K58.9 Irritable bowel syndrome, unspecified; Z86.14 Personal history of Methicillin resistant Staphylococcus aureus infection; Z98.84 Bariatric surgery status; Z98.51 Tubal ligation status; Z79.899 Other long term (current) drug therapy; Z88.5 Allergy status to narcotic agent; Z88.8 Allergy status to other drugs, medicaments and biological substances; Z91.011 Allergy to milk products; Z88.6 Allergy status to analgesic agent; Z87.891 Personal history of nicotine dependence
CPT/HCPCS: 88305; 88342; 88341; 49650; 58662; J2250; J1200; J1644; J1100; J2710; J2405; J2001; J3010; J0330; J2704; J1170

== ENCOUNTER → 2017-08-17 | Outpatient (CLI) | payer OTHER ==
[2017-08-17 10:53] VITALS: BP 117/78; PULSE 56; TEMP 98.1; BMI 23.8
--- NOTE | 2017-08-17 12:17 | US ---
EXAMINATION TYPE: US thyroid st tissue head/neck DATE OF EXAM: 08/17/2017 COMPARISON: NONE CLINICAL HISTORY: R22.0 Swelling Mass palpable abnormality head/neck. 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 GLAND SIZE: Right Lobe: 5.5 x 1.4 x 1.6 cm Overall Parenchyma: heterogenous Left Lobe: 5.3 x 1.4 x 1.6 cm Overall Parenchyma: heterogeneous Isthmus Thickness: 0.2 cm NODULES RIGHT: # of nodules measured on right: 1 1. 0.5 X 0.3 x 0.5 cm cystic nodule at the mid pole with well-defined margins. This nodule is wide r than tall and shows no intranodular vascularity. Prior size: WALL SCRAPER LEFT: # of nodules measured on left: 1 1. 1.0 X 0.8 x 0.8 cm hypoechoic solid nodule at the upper pole with irregular margins. This nodul e is wider than tall and shows intranodular vascularity. Prior size: WALL SCRAPER ISTHMUS: # of nodules measured in the isthmus: 0 Bilateral neck scanned, no evidence of lymphadenopathy. Multiple subcentimeter cystic areas seen, only one solid noted on the left IMPRESSION: There is a 1 cm nodule within the left thyroid additional subcentimeter nodules as noted above.
--- NOTE | 2017-09-16 22:15 | P.PN ---
Subjective Progress Note Date: 08/17/17 DATE OF SERVICE: 08/17/2017 CHIEF COMPLAINT: Abdominal mass HISTORY OF PRESENT ILLNESS: Jacinda Diamond is a 42-year-old female who is status post Dariana-en-Y gastric bypass in June of 2015. Her lifetime highest weight was 309 pounds. Today she comes in weighing 147 pounds. Her ideal body weight is 5 foot 6 frame is 154 pounds. She has lost 162 pounds. Percent excess weight loss is 104 %. Body mass index has been reduced from 50 down to 23.8. She has gained 11 pounds since her last visit one month ago. She is now status post exploration of the right groin with the finding of an abdominal tumor, new diagnosis. She denies any additional right lower quadrant or right groin pain. Her previous right bulge is now completely gone of the groin. Separately, she reports that her father of colon cancer at age 6666 years old. She has not had a previous mammogram. PHYSICAL EXAM: VITAL SIGNS: 5 foot 6, 147 pounds. Body mass index of 23.8. Vital Signs Temp 98.1 F 08/17/17 10:50 Pulse 56 L 08/17/17 10:50 Resp BP 117/78 08/17/17 10:50 Pulse Ox ABDOMEN: Soft, nondistended. All incisions clean, dry, and intact. No signs of infection. No recurrent right groin swelling. GENERAL: Well-developed, pleasant female, no acute distress. HEENT: No sclerae icterus. Extraocular movements grossly intact. Well-healed scar from prior tracheostomy. No nasal drainage. RESPIRATORY: Nonlabored respirations. Equal bilateral excursions. CARDIOVASCULAR: Regular rate and regular rhythm. Palpable 2+ radial pulses. MUSCULOSKELETAL: No clubbing, cyanosis, or edema. NEURO: There are no focal or lateralizing signs. PSYCH: Appropriate affect. Alert and oriented to person, place and time. ASSESSMENT: 1. Adenocarcinoma of the abdominal wall 2. Family history of colon cancer PLAN: 1. With her new diagnosis, final pathology is pending from [facility]. 2. In the interim, recommend CT of the chest, abdomen and pelvis. 3. Source or etiology of tumor questionable for thyroid cancer recommend ultrasound of the neck including thyroid studies. 4. Upon discussion with her, she has elected for referral to Dr. Parisi for oncology 5. As a urological cause cannot be excluded she may at some point need further investigation by urology. 6. Recommend screening mammogram. 7. Recommend follow-up with gynecology as well guarding new diagnosis of cancer. Objective - Vital Signs Vital signs: Vital Signs Temp 98.1 F 08/17/17 10:50 Pulse 56 L 08/17/17 10:50 Resp BP 117/78 08/17/17 10:50 Pulse Ox Intake & Output 08/16/17 08/17/17 08/17/17 18:59 06:59 18:59 Weight 66.95 kg
== END | disposition home or self-care (01) ==
LOC: BARWHC3 10:18
PROVIDERS: ATTEND Surgery Plastic and Reconstructive Surgery
DX: C76.2 Malignant neoplasm of abdomen (principal); E04.2 Nontoxic multinodular goiter; Z80.0 Family history of malignant neoplasm of digestive organs
CPT/HCPCS: 76536; G0463; 99211

== ENCOUNTER → 2017-09-01 | Outpatient (CLI) | payer OTHER ==
--- NOTE | 2017-09-04 08:25 | MM ---
Reason for exam: screening (asymptomatic). Baseline mammogram. History: Patient has history of other cancer at age 42. Physical Findings: Nurse did not find any significant physical abnormalities on exam. MG Screening Mammo w CAD Bilateral CC and MLO view(s) were taken. There are scattered fibroglandular densities. Finding: There are typically benign round, diffuse/scattered calcifications in both breasts. There is no discrete abnormality. These results were verbally communicated with the patient and result sheet given to the patient on 09/01/17. ASSESSMENT: Benign, BI-RAD 2 RECOMMENDATION: Routine screening mammogram of both breasts in 1 year.
== END | disposition home or self-care (01) ==
LOC: RADMAMWWP 15:34
PROVIDERS: ATTEND Surgery Plastic and Reconstructive Surgery
DX: Z12.31 Encounter for screening mammogram for malignant neoplasm of breast (principal)
CPT/HCPCS: 77067

== ENCOUNTER → 2017-09-07 | Outpatient (CLI) | payer OTHER ==
--- NOTE | 2017-09-07 16:27 | CT ---
EXAMINATION TYPE: CT ChestAbdPelvis w con DATE OF EXAM: 09/07/2017 COMPARISON: April 10, 2016 HISTORY: Recent diagnosis of carcinoma. CT DLP: 534.4 mGycm CONTRAST: CT scan of the chest, abdomen and pelvis is performed with Oral Contrast and with IV Contrast, patien t injected with 100 mL of Omnipaque 300. CT Chest: LUNGS: The lungs are clear and free of infiltrate or atelectasis. No pulmonary nodule or mass is det ected. No pleural effusion or mild subpleural fibrosis left lower lobe. MEDIASTINUM: Thoracic aorta is of normal caliber. Anterior mediastinal soft tissue likely reflects t hymic hyperplasia or rebound. The heart is not enlarged. No evidence for mediastinal mass or adenopa thy. HILAR STRUCTURES: No evidence for mass. No hilar adenopathy is appreciated. OTHER: No significant abnormality. CONTRAST CT ABDOMEN AND PELVIS FINDINGS: LIVER/GB: Cholecystectomy clips are in place. No space occupying hepatic lesion. Biliary tree is of n ormal caliber. PANCREAS: No inflammation. No distinct mass. SPLEEN: No splenic enlargement. No lesion seen. ADRENALS: No nodule. No thickening. KIDNEYS/BLADDER: No hydronephrosis. No nephrolithiasis. No disctinct renal mass. BOWEL: Dariana-en-Y gastric bypass noted. Normal appendix. Normal bowel caliber. No inflammation. Prev iously noted right lower quadrant lobulated soft tissue mass adjacent to the right ovary is no longer visible. Correlate clinically. GENITAL ORGANS: No gross abnormality. LYMPH NODES: No greater than 1cm abdominal or pelvic lymph nodes are appreciated. AORTA: No significant abnormality. OSSEOUS STRUCTURES: No significant abnormality is seen. OTHER: No significant additional abnormality is seen. IMPRESSION: 1. Previously noted right lower quadrant lobulated soft tissue mass adjacent to the right ovary is no longer visible. Correlate clinically. 2. No evidence for metastatic disease at this time. 3. Mild subpleural fibrosis at the lung bases and upper lobes. 4. Correlate for thymic hyperplasia or rebound..
== END | disposition home or self-care (01) ==
LOC: RADCTMAIN 14:03
PROVIDERS: ATTEND Internal Medicine Hematology & Oncology
DX: J84.10 Pulmonary fibrosis, unspecified (principal); C80.0 Disseminated malignant neoplasm, unspecified
CPT/HCPCS: 71260; 74177; Q9967

== ENCOUNTER 2017-09-12 12:15 | Day surgery (SDC) | payer OTHER ==
[2017-09-12 12:36] VITALS: RESP 14; TEMP 98
[2017-09-12] MEDS ORDERED: ALPRAZolam 0.5 MG TAB PO STA (12:44)
[2017-09-12 13:44] VITALS: BP 99/66; PULSE 57
--- NOTE | 2017-09-12 13:55 | US ---
ULTRASOUND GUIDED FNA THYROID BIOPSY: CLINICAL HISTORY: 1 cm left thyroid nodule FINDINGS: The procedure was explained to the patient. The risks, complications, benefits and alternatives were discussed and any questions were answered. Informed consent was obtained. Patient was placed supin e on the ultrasound table and prepped and draped in the usual sterile fashion. Utilizing a 25 gauge needle, five passes were made into the requested left thyroid nodule. Patient was stable throughout the procedure. Pathology is pending. All elements of maximal barrier technique were utilized. IMPRESSION: 1. Successful ultrasound guided FNA thyroid biopsy.
== END 2017-09-12 13:48 | disposition home or self-care (01) ==
LOC: RADPROMAIN 12:15
PROVIDERS: ATTEND Surgery Plastic and Reconstructive Surgery
DX: E04.1 Nontoxic single thyroid nodule (principal)
CPT/HCPCS: 10022; 76942; 88173; 88305

== ENCOUNTER 2017-11-08 09:29 | Day surgery (SDC) | payer OTHER ==
[2017-11-06 11:31] VITALS: BMI 23.1
[~2017-11-08 09:29] MED LIST changes: -DEXAMETHASONE SOD PHOSPHATE 10 MG/ML 1 ML VIAL IV ONE; -HEPARIN SODIUM,PORCINE 5,000 UNIT/ML 1 ML VIAL SQ ONE; +LACTATED RINGERS 1,000 ML IV SCH; -MIDAZOLAM 2 MG/2 ML VIAL IV PRN; -ONDANSETRON 4 MG/2 ML VIAL IVP ONE; -SCOPOLAMINE 1.5MG/72HR PATCH TRANSDERM ONE; -ceFAZolin 2 GM in SODIUM CHLORIDE 0.9% 100 ML IVPB ONE; -ceFAZolin IN SWFI 2 GM/20 ML SYRINGE IVP ONE
--- NOTE | 2017-11-08 10:07 | P.GSHP ---
History of Present Illness H&P Date: 11/08/17 CHIEF COMPLAINT: GERD HISTORY OF PRESENT ILLNESS: The patient is a 42-year-old female who presents reports gastroesophageal reflux disease. Upper endoscopy was offered for further evaluation and management. PAST MEDICAL HISTORY: Please see list. PAST SURGICAL HISTORY: Please see list. MEDICATIONS: Please see list. ALLERGIES: Please see list. SOCIAL HISTORY: No illicit drug use FAMILY HISTORY: No reports of Crohn disease or ulcerative colitis. REVIEW OF ORGAN SYSTEMS: CONSTITUTIONAL: No reports of fevers or chills. GI: Denies any blood in stools or constipation. PHYSICAL EXAM: VITAL SIGNS: Stable GENERAL: Well-developed and pleasant in no acute distress. HEENT: No scleral icterus. Extraocular movements grossly intact. Moist buccal mucosa. NECK: Supple without lymphadenopathy. CHEST: Unlabored respirations. Equal bilateral excursions. CARDIOVASCULAR: Regular rate and rhythm. Distal 2+ pulses. ABDOMEN: Soft, nondistended. MUSCULOSKELETAL: No clubbing, cyanosis, or edema. ASSESSMENT: 1. Gastroesophageal reflux disease PLAN: 1. Recommend proceeding with an upper endoscopy Past Medical History Past Medical History: GERD/Reflux, Rheumatoid Arthritis (RA) Additional Past Medical History / Comment(s): migraines, bilateral neuropathy( legs and hands)- legs can give out causing falls, hx IBS, hx swine flu 2008- was INTUBATED, varicose veins, DDD History of Any Multi-Drug Resistant Organisms: MRSA Date of last positivie culture/infection: 06/2009 MDRO Source:: LUNGS Past Surgical History: Appendectomy, Bariatric Surgery, Section, Cholecystectomy, Hernia Repair, Tubal Ligation, Uterine Ablation Additional Past Surgical History / Comment(s): 06/22/15 Laparoscopic misty-en-y gastric bypass with EGD. PEG tube/later removed, Tracheostomy 2008 when she had the swine flu. Panniculectomy 07/25/16, 3 ABDOMINAL hernias removed Past Anesthesia/Blood Transfusion Reactions: Motion Sickness, Postoperative Nausea & Vomiting (PONV) Additional Past Anesthesia/Blood Transfusion Reaction / Comment(s): Pt states she has never received blood. Smoking Status: Former smoker - Past Family History Mother Family Medical History: Asthma, Congestive Heart Failure (CHF), COPD, Diabetes Mellitus, GERD/Reflux, Hypertension, Pneumonia, Sleep Apnea/CPAP/BIPAP Additional Family Medical History / Comment(s): varicose veins, enlarged heart. Father Family Medical History: Hypertension Additional Family Medical History / Comment(s): Father is living. Medications and Allergies Home Medications Medication Instructions Recorded Confirmed Type Butalb/Acetaminophen/Caffeine 1 - 2 tab PO DIRECTED PRN 07/14/16 11/06/17 History [Fioricet 50-325-40] OXcarbazepine [Trileptal] 600 mg PO HS 07/14/16 11/06/17 History QUEtiapine [SEROquel] 150 mg PO HS 12/25/16 11/06/17 History PARoxetine [Paxil] 20 mg PO QAM 04/09/17 11/06/17 History Divalproex Sodium [Depakote ER] 250 mg PO HS 08/07/17 11/06/17 History Propranolol HCl [Inderal LA] 160 mg PO HS 08/07/17 11/06/17 History Ergocalciferol [Vitamin D2 50,000 unit PO Q7D #12 cap 08/17/17 11/06/17 Rx (DRISDOL)] Vitamin A 240 mcg PO DAILY 09/05/17 11/06/17 History OXcarbazepine [Trileptal] 300 mg PO QAM 11/06/17 11/06/17 History Omeprazole 40 mg PO DAILY 11/06/17 11/06/17 History Allergies Allergy/AdvReac Type Severity Reaction Status Date / Time meperidine HCl [From Demerol] Allergy Severe "BECAME Verified 11/06/17 11:23 BELIGERENT" Milk Containing Products Allergy Severe Nausea & Verified 11/06/17 11:23 [Dairy] Vomiting & Diarrhea guaifenesin [From Robitussin] Allergy Mild WHEEZING Verified 11/06/17 11:23 FROM COUGH SYRUP WITH CODEINE codeine Allergy Unknown Wheezing Verified 11/06/17 11:23 acetaminophen Allergy Rash/Hives Verified 11/06/17 11:23 [From Darvocet-N] propoxyphene Allergy Rash/Hives Verified 11/06/17 11:23 [From Darvocet-N] zonisamide [From Zonegran] Allergy Anaphylaxis Verified 11/06/17 11:23 aspirin AdvReac "MAKES Verified 11/06/17 11:23 BLOOD TOO THIN" NSAIDS (Non-Steroidal AdvReac DOES NOT Verified 11/06/17 11:23 Anti-Inflamma USE R/T BARIATRIC SX
[2017-11-08 11:03] VITALS: TEMP 989.1
[2017-11-08] MEDS ORDERED: LACTATED RINGERS 1,000 ML IV ONE (11:04)
[2017-11-08] MEDS ORDERED: PROPOFOL 10 MG/ML 20 ML VIAL IV ONE (12:07)
[2017-11-08] MEDS ORDERED: LIDOCAINE 1% INJ 10MG/ML (20 ML MDV) ONE (12:07)
--- NOTE | 2017-11-08 12:31 | P.PCN ---
Date of Procedure: 11/08/17 Description of Procedure: PREOPERATIVE DIAGNOSIS: Dysphagia. Nausea with vomiting. POSTOPERATIVE DIAGNOSIS: Dysphagia. Morbid obesity. Gastrojejunal stricture with chronic ulcer without perforation OPERATION: Esophagogastrojejunoscopy with balloon dilatation from 15 to 20 mm. SURGEON: Janie Mishra MD ANESTHESIA: MAC. INDICATIONS: The patient is a 42-year-old female who presents with a history of dysphagia, including new-onset nausea and vomiting. Benefits and risks of the procedure were described. Informed consent was obtained. DESCRIPTION: The patient was brought into the endoscopy suite and laid in the left lateral decubitus position. After a timeout was confirmed, the procedure was initiated. An Olympus gastroscope was passed along the posterior oropharynx down to the distal esophagus where the squamocolumnar junction was unremarkable. The gastric pouch was entered. A gastrojejunal stricture of 15 mm was found as the adult gastroscope was 9.5 mm in size. A Vir2us balloon dilator was placed through the scope. Final insufflation up to 20 mm was performed with a total of 2 minutes. The scope was advanced up to 70 cm from the incisors into the Dariana limb. The mucosa of the gastrojejunal anastomosis was intact. However chronic gastrojejunal marginal ulcer was encountered. No full-thickness injury was encountered. The GI tract was desufflated. The patient tolerated the procedure well. FINDINGS: Stricture of approximately 15 mm encountered. Chronic gastrojejunal ulceration encountered. Successful balloon dilatation to 20 mm. RECOMMENDATIONS: Liquid diet. Upper endoscopy as needed. Omeprazole for 2 weeks. Plan - Discharge Summary Discharge Rx Participant: No New Discharge Prescriptions: No Action OXcarbazepine [Trileptal] 600 mg PO HS Butalb/Acetaminophen/Caffeine [Fioricet 50-325-40] 1 - 2 tab PO DIRECTED PRN PRN Reason: Migraine Headache QUEtiapine [SEROquel] 150 mg PO HS PARoxetine [Paxil] 20 mg PO QAM Propranolol HCl [Inderal LA] 160 mg PO HS Divalproex Sodium [Depakote ER] 250 mg PO HS Ergocalciferol [Vitamin D2 (DRISDOL)] 50,000 unit PO Q7D #12 cap Vitamin A 240 mcg PO DAILY Omeprazole 40 mg PO DAILY OXcarbazepine [Trileptal] 300 mg PO QAM Discharge Medication List Butalb/Acetaminophen/Caffeine [Fioricet 50-325-40] 1 - 2 tab PO DIRECTED PRN 07/14/16 [History] OXcarbazepine [Trileptal] 600 mg PO HS 07/14/16 [History] QUEtiapine [SEROquel] 150 mg PO HS 12/25/16 [History] PARoxetine [Paxil] 20 mg PO QAM 04/09/17 [History] Divalproex Sodium [Depakote ER] 250 mg PO HS 08/07/17 [History] Propranolol HCl [Inderal LA] 160 mg PO HS 08/07/17 [History] Ergocalciferol [Vitamin D2 (DRISDOL)] 50,000 unit PO Q7D #12 cap 08/17/17 [Rx] Vitamin A 240 mcg PO DAILY 09/05/17 [History] OXcarbazepine [Trileptal] 300 mg PO QAM 11/06/17 [History] Omeprazole 40 mg PO DAILY 11/06/17 [History]
[2017-11-08 12:32] VITALS: RESP 16
[2017-11-08 13:05] VITALS: BP 104/70; PULSE 69
== END 2017-11-08 13:14 | disposition home or self-care (01) ==
LOC: ORWHC2ENDO 09:29
PROVIDERS: ATTEND Surgery Plastic and Reconstructive Surgery
DX: K28.7 Chronic gastrojejunal ulcer without hemorrhage or perforation (principal); K21.9 Gastro-esophageal reflux disease without esophagitis; R13.10 Dysphagia, unspecified; M06.9 Rheumatoid arthritis, unspecified; G43.909 Migraine, unspecified, not intractable, without status migrainosus; G62.9 Polyneuropathy, unspecified; I83.90 Asymptomatic varicose veins of unspecified lower extremity; E66.01 Morbid (severe) obesity due to excess calories; Z86.14 Personal history of Methicillin resistant Staphylococcus aureus infection; Z98.84 Bariatric surgery status; Z87.891 Personal history of nicotine dependence; Z79.899 Other long term (current) drug therapy; Z88.5 Allergy status to narcotic agent; Z88.8 Allergy status to other drugs, medicaments and biological substances; Z88.6 Allergy status to analgesic agent; Z91.011 Allergy to milk products
CPT/HCPCS: 43245; J2001; J2704; C1726; 43249

== ENCOUNTER 2017-12-25 15:57 | Emergency (ER) | payer OTHER ==
[2017-12-25 16:02] VITALS: BP 116/83; TEMP 98
--- NOTE | 2017-12-25 16:19 | ED ---
General Adult HPI - General Chief complaint: Upper Respiratory Infection Stated complaint: Cough Time Seen by Provider: 12/25/17 16:08 Source: patient, RN notes reviewed Mode of arrival: ambulatory Limitations: no limitations - History of Present Illness Initial comments: 42-year-old female presents to the emergency department for a chief complaint of cough and congestion times one week. Patient has been taking over-the- counter Tylenol severe cold and flu. This helped somewhat. Patient sates the cough is productive. Patient denies shortness of breath or difficulty breathing. Patient also admits to a sore throat. Patient also admits to left ear pain and pressure. Patient states she has a history of a trach due to swine flu and has about 65% lung capacity due to this. Patient is a former smoker. Patient does have a history of asthma. Patient states she had a low grade fever last night at home. Patient has not had Motrin or Tylenol today. Patient has no other complaints at this time including shortness of breath, chest pain, abdominal pain, nausea or vomiting, headache, or visual changes. - Related Data Home Medications Medication Instructions Recorded Confirmed Butalb/Acetaminophen/Caffeine 1 - 2 tab PO DIRECTED PRN 07/14/16 11/06/17 [Fioricet 50-325-40] OXcarbazepine [Trileptal] 600 mg PO HS 07/14/16 11/06/17 QUEtiapine [SEROquel] 150 mg PO HS 12/25/16 11/06/17 PARoxetine [Paxil] 20 mg PO QAM 04/09/17 11/06/17 Divalproex Sodium [Depakote ER] 250 mg PO HS 08/07/17 11/06/17 Propranolol HCl [Inderal LA] 160 mg PO HS 08/07/17 11/06/17 Vitamin A 240 mcg PO DAILY 09/05/17 11/06/17 OXcarbazepine [Trileptal] 300 mg PO QAM 11/06/17 11/06/17 Omeprazole 40 mg PO DAILY 11/06/17 11/06/17 Previous Rx's Medication Instructions Recorded Ergocalciferol [Vitamin D2 50,000 unit PO Q7D #12 cap 08/17/17 (DRISDOL)] Omeprazole 40 mg PO DAILY #30 capsule. 11/08/17 Azithromycin [Zithromax Z-pack] 250 mg PO DIRECTED #6 tab 12/25/17 predniSONE 50 mg PO DAILY #5 tablet 12/25/17 Allergies Allergy/AdvReac Type Severity Reaction Status Date / Time meperidine HCl [From Demerol] Allergy Severe "BECAME Verified 12/25/17 16:02 BELIGERENT" Milk Containing Products Allergy Severe Nausea & Verified 12/25/17 16:02 [Dairy] Vomiting & Diarrhea guaifenesin [From Robitussin] Allergy Mild WHEEZING Verified 12/25/17 16:02 FROM COUGH SYRUP WITH CODEINE codeine Allergy Unknown Wheezing Verified 12/25/17 16:02 acetaminophen Allergy Rash/Hives Verified 12/25/17 16:02 [From Darvocet-N] propoxyphene Allergy Rash/Hives Verified 12/25/17 16:02 [From Darvocet-N] zonisamide [From Zonegran] Allergy Anaphylaxis Verified 12/25/17 16:02 aspirin AdvReac "MAKES Verified 12/25/17 16:02 BLOOD TOO THIN" NSAIDS (Non-Steroidal AdvReac DOES NOT Verified 12/25/17 16:02 Anti-Inflamma USE R/T BARIATRIC SX Review of Systems ROS Statement: Those systems with pertinent positive or pertinent negative responses have been documented in the HPI. ROS Other: All systems not noted in ROS Statement are negative. Past Medical History Past Medical History: Cancer, GERD/Reflux, Rheumatoid Arthritis (RA) Additional Past Medical History / Comment(s): migraines, bilateral neuropathy( legs and hands)- legs can give out causing falls, hx IBS, hx swine flu 2008- was INTUBATED, varicose veins, DDD, nevdididmejacardsi History of Any Multi-Drug Resistant Organisms: MRSA Date of last positivie culture/infection: 06/2009 MDRO Source:: LUNGS Past Surgical History: Appendectomy, Bariatric Surgery, Section, Cholecystectomy, Hernia Repair, Tubal Ligation, Uterine Ablation Additional Past Surgical History / Comment(s): 06/22/15 Laparoscopic misty-en-y gastric bypass with EGD. PEG tube/later removed, Tracheostomy 2008 when she had the swine flu. Panniculectomy 07/25/16, 3 ABDOMINAL hernias removed Past Anesthesia/Blood Transfusion Reactions: Motion Sickness, Postoperative Nausea & Vomiting (PONV) Additional Past Anesthesia/Blood Transfusion Reaction / Comment(s): Pt states she has never received blood. Past Psychological History: Anxiety, Bipolar, Depression, PTSD Smoking Status: Former smoker Past Alcohol Use History: None Reported Past Drug Use History: None Reported - Past Family History Mother Family Medical History: Asthma, Congestive Heart Failure (CHF), COPD, Diabetes Mellitus, GERD/Reflux, Hypertension, Pneumonia, Sleep Apnea/CPAP/BIPAP Additional Family Medical History / Comment(s): varicose veins, enlarged heart. Father Family Medical History: Hypertension Additional Family Medical History / Comment(s): Father is living. General Exam Limitations: no limitations General appearance: alert, in no apparent distress Head exam: Present: atraumatic, normocephalic, normal inspection Eye exam: Present: normal appearance, PERRL, EOMI. Absent: scleral icterus, conjunctival injection, periorbital swelling ENT exam: Present: normal exam, normal oropharynx, mucous membranes moist, TM's normal bilaterally (Non-erythematous tympanic membranes), normal external ear exam (Uvula midline, non-erythematous, no tonsillar exudates noted bilaterally.) Neck exam: Present: normal inspection, full ROM. Absent: tenderness, meningismus, lymphadenopathy Respiratory exam: Present: normal lung sounds bilaterally. Absent: respiratory distress, wheezes, rales, rhonchi, stridor Cardiovascular Exam: Present: regular rate, normal rhythm, normal heart sounds. Absent: systolic murmur, diastolic murmur, rubs, gallop, clicks Course Vital Signs 12/25/17 12/25/17 16:00 16:15 Temperature 98 F Pulse Rate 108 H Respiratory 20 18 Rate Blood Pressure 116/83 O2 Sat by Pulse 98 Oximetry Medical Decision Making - Medical Decision Making 42-year-old female presents to the emergency department for a chief complaint of cough and congestion times one week. Patient's family care doctor sent her because she cannot get into her doctor for 2 weeks. Patient has a history of swine flu and has had a trach and reduced lung capacity due to this. Patient no longer has a trach. Patient denies shortness of breath or difficulty breathing. Patient also admits to a sore throat and left ear pain. On exam throat appears nonerythematous and tympanic membrane appears within normal limits. Lungs are clear to auscultation bilaterally. Strep came back negative. Chest x-ray shows no acute abnormalities. Due to patient's history of trach and reduced lung capacity patient will be discharged home with azithromycin and a steroid. She also has a history of asthma so steroid was necessary. Patient will follow up with primary care in 1-2 days. She will return to the emergency Department if she has any worsening symptoms. - Lab Data Lab Results 12/25/17 Range/Units 16:15 Group A Strep Rapid Negative (Negative) Disposition Clinical Impression: Upper respiratory infection Disposition: HOME SELF-CARE Condition: Good Instructions: Upper Respiratory Infection (ED) Additional Instructions: Please take antibiotic and steroid as directed. Please follow-up with primary care in 1-2 days. Return to the emergency department if you have any worsening symptoms or develop shortness of breath Prescriptions: Azithromycin [Zithromax Z-pack] 250 mg PO DIRECTED #6 tab predniSONE 50 mg PO DAILY #5 tablet Is patient prescribed a controlled substance at d/c from ED?: No Referrals: Tushar Majano MD [Primary Care Provider] - 1-2 days Time of Disposition: 16:55
--- NOTE | 2017-12-25 16:31 | XR ---
EXAMINATION TYPE: XR chest 2V DATE OF EXAM: 12/25/2017 COMPARISON: Chest x-ray September 18, 2015. CT chest September 07, 2017 HISTORY: History of asthma presents with cough and bronchitis. TECHNIQUE: Frontal and lateral views of the chest are obtained. FINDINGS: Overlying bra is noted. There is no focal air space opacity, pleural effusion, or pneumoth orax seen. The cardiac silhouette size is within normal limits. The osseous structures are intact. Cholecystectomy clips are seen on lateral view. IMPRESSION: No suspicious acute infiltrate currently.
[2017-12-25 16:55] VITALS: RESP 18
[2017-12-25 17:04] VITALS: PULSE 80
== END 2017-12-25 17:03 | disposition home or self-care (01) ==
LOC: EC 15:57
DX: J06.9 Acute upper respiratory infection, unspecified (principal); F31.9 Bipolar disorder, unspecified; F41.9 Anxiety disorder, unspecified; K21.9 Gastro-esophageal reflux disease without esophagitis; Z86.14 Personal history of Methicillin resistant Staphylococcus aureus infection; Z86.69 Personal history of other diseases of the nervous system and sense organs; Z88.5 Allergy status to narcotic agent; Z88.6 Allergy status to analgesic agent; Z88.8 Allergy status to other drugs, medicaments and biological substances; Z91.011 Allergy to milk products; Z79.899 Other long term (current) drug therapy; Z87.891 Personal history of nicotine dependence
CPT/HCPCS: 71046; 87081; 87430; 99283

== ENCOUNTER → 2018-01-29 | Outpatient (CLI) | payer OTHER ==
[2018-01-29 20:55] LABS: Alternaria alternata IgE <0.10 kU/L; Birch IgE <0.10 kU/L; Cat Epith & Dander IgE <0.10 kU/L; Clam IgE <0.10 kU/L; Cockroach IgE <0.10 kU/L; Codfish IgE <0.10 kU/L; Dermato. farinae IgE <0.10 kU/L; Dog Dander IgE <0.10 kU/L; Egg White IgE <0.10 kU/L; Elm IgE <0.10 kU/L; Maple (Box Elder) IgE <0.10 kU/L; Oak IgE <0.10 kU/L; Peanut IgE <0.10 kU/L; Ragweed,Common IgE <0.10 kU/L; Red Top (Bentgrass) IgE <0.10 kU/L; Scallop IgE <0.10 kU/L; Shrimp IgE <0.10 kU/L; Soybean IgE <0.10 kU/L; Walnut IgE (Food) <0.10 kU/L
== END | disposition home or self-care (01) ==
LOC: LABWHC1 13:44
PROVIDERS: ATTEND Nurse Practitioner Adult Health
DX: J45.909 Unspecified asthma, uncomplicated (principal)
CPT/HCPCS: 36415; 82785; 86003

== ENCOUNTER → 2018-03-21 | Outpatient (CLI) | payer OTHER | END | disposition home or self-care (01) | LOC: RADCTMAIN 07:48 | PROVIDERS: ATTEND Internal Medicine Hematology & Oncology | DX: Z53.9 Procedure and treatment not carried out, unspecified reason (principal) ==

== ENCOUNTER → 2018-03-26 | Outpatient (CLI) | payer OTHER ==
--- NOTE | 2018-03-26 09:06 | CT ---
EXAMINATION TYPE: CT ChestAbdPelvis w con DATE OF EXAM: 03/26/2018 COMPARISON: 09/07/2017 HISTORY: Abdominal neoplasm CT DLP: 1545 mGycm CONTRAST: CT scan of the chest, abdomen and pelvis is performed with Oral Contrast and with IV Contrast, patien t injected with 100 ml mL of Isovue 300. CT Chest: LUNGS: The lungs are clear and free of infiltrate or atelectasis. No pulmonary nodule or mass is det ected. No pleural effusion or CT evidence of interstitial lung disease. MEDIASTINUM: Thoracic aorta is of normal caliber. The heart is not enlarged. No evidence for media stinal mass or adenopathy. HILAR STRUCTURES: No evidence for mass. No hilar adenopathy is appreciated. OTHER: No significant abnormality. CONTRAST CT ABDOMEN AND PELVIS FINDINGS: LIVER/GB: Cholecystectomy clips noted in place. There is evidence of fatty hepatic infiltration. No s pace occupying hepatic lesion. Biliary tree is of normal caliber. PANCREAS: No inflammation. No distinct mass. SPLEEN: No splenic enlargement. No lesion seen. ADRENALS: No nodule. No thickening. KIDNEYS/BLADDER: No hydronephrosis. No nephrolithiasis. No disctinct renal mass. BOWEL: Nonvisualization of the appendix. Normal bowel caliber. No inflammation. Postsurgical changes of gastric bypass. GENITAL ORGANS: No gross abnormality. LYMPH NODES: No greater than 1cm abdominal or pelvic lymph nodes are appreciated. AORTA: No significant abnormality. OSSEOUS STRUCTURES: No significant abnormality is seen. OTHER: No significant additional abnormality is seen. IMPRESSION: 1. No evidence for soft tissue mass or metastatic disease. 2. Mild fatty liver.
== END ==
LOC: RADCTMAIN 07:11
PROVIDERS: ATTEND Internal Medicine Hematology & Oncology
DX: C76.2 Malignant neoplasm of abdomen (principal); K76.0 Fatty (change of) liver, not elsewhere classified
CPT/HCPCS: 71260; 74177; Q9967

== ENCOUNTER → 2018-04-11 | Outpatient (CLI) | payer OTHER ==
[2018-04-11 16:41] VITALS: BP 128/78; PULSE 67; RESP 16; TEMP 98.9; BMI 24.9
--- NOTE | 2018-04-11 17:34 | P.PN ---
Subjective Progress Note Date: 04/11/18 HPI: She reports pain along the bilateral flanks from tumor. She is pending follow up from her oncologist ABDOMEN: Bilateral flank masses 2 cm in size. No recurrence abdominal tumor. STUDIES: No metastasis of cancer PLAN: 1. Excision of bilateral flank mass, 4 cm, CPT 49853 2. For fatty liver disease, 2 week protein diet and carbohydrate restriction advised. Objective - Vital Signs Vital signs: Vital Signs Temp 98.9 F 04/11/18 16:38 Pulse 67 04/11/18 16:38 Resp 16 04/11/18 16:38 BP 128/78 04/11/18 16:38 Pulse Ox Intake & Output 04/10/18 04/11/18 04/11/18 18:59 06:59 18:59 Weight 70.023 kg
== END | disposition home or self-care (01) ==
LOC: BARWHC3 15:26
PROVIDERS: ATTEND Surgery Plastic and Reconstructive Surgery
DX: R22.2 Localized swelling, mass and lump, trunk (principal); R10.9 Unspecified abdominal pain
CPT/HCPCS: 99211

== ENCOUNTER 2018-05-30 15:36 | Emergency (ER) | payer OTHER ==
[2018-05-30 15:51] VITALS: RESP 18
--- NOTE | 2018-05-30 16:16 | XR ---
Left forearm HISTORY: Trauma and pain 2 views of the left forearm Bone mineralization, joint spaces and alignment are maintained. Small metallic density is present rebekah ng the soft tissues at the dorsal aspect of the mid diaphysis of the left ulna measuring only approxi mately 2 mm and is of questionable clinical significance. IMPRESSION: No fracture or dislocation.
--- NOTE | 2018-05-30 16:51 | ED ---
General Adult HPI - General Chief complaint: Extremity Injury, Upper Stated complaint: Fall, L arm pain Time Seen by Provider: 05/30/18 16:40 Source: patient, RN notes reviewed Mode of arrival: ambulatory Limitations: no limitations - History of Present Illness Initial comments: Patient is a 42-year-old female with history of neuropathy (hands and legs) who presents the emergency department with complaint of falling and injuring her left forearm about 2 hours ago. She thinks she may have caught her shoe on the cabinet in the kitchen. She reports that she is "high fall risk" and that she has fallen before, but never broken any bones. Patient denies any recent head trauma, loss of consciousness, fever, chills, shortness of breath, chest pain, back pain, abdominal pain, nausea or vomiting, new numbness or tingling, headaches or visual changes, or any other complaints. - Related Data Home Medications Medication Instructions Recorded Confirmed PARoxetine [Paxil] 20 mg PO QAM 04/09/17 05/29/18 OXcarbazepine [Trileptal] 300 mg PO BID 11/06/17 05/29/18 Nystatin-Triamcinolone Oint 1 applic TOPICAL TID 04/11/18 05/29/18 [Mycolog 100,000-0.1 Unit/gm-% Oint] QUEtiapine FUMARATE [SEROquel] 300 mg PO HS 04/11/18 05/29/18 Butalb/APAP/Caff 50-325-40Mg 1 tab PO Q4H PRN 05/29/18 05/29/18 [Fioricet 50-325-40] Cetirizine HCl [Zyrtec] 10 mg PO DAILY 05/29/18 05/29/18 Allergies Allergy/AdvReac Type Severity Reaction Status Date / Time meperidine HCl [From Demerol] Allergy Severe "BECAME Verified 05/30/18 15:51 BELIGERENT" Milk Containing Products Allergy Severe Nausea & Verified 05/30/18 15:51 [Dairy] Vomiting & Diarrhea guaifenesin [From Robitussin] Allergy Mild WHEEZING Verified 05/30/18 15:51 FROM COUGH SYRUP WITH CODEINE codeine Allergy Unknown Wheezing Verified 05/30/18 15:51 acetaminophen Allergy Rash/Hives Verified 05/30/18 15:51 [From Darvocet-N] propoxyphene Allergy Rash/Hives Verified 05/30/18 15:51 [From Darvocet-N] zonisamide [From Zonegran] Allergy Anaphylaxis Verified 05/30/18 15:51 aspirin AdvReac "MAKES Verified 05/30/18 15:51 BLOOD TOO THIN" NSAIDS (Non-Steroidal AdvReac DOES NOT Verified 05/30/18 15:51 Anti-Inflamma USE R/T BARIATRIC SX Review of Systems ROS Statement: Those systems with pertinent positive or pertinent negative responses have been documented in the HPI. ROS Other: All systems not noted in ROS Statement are negative. Past Medical History Past Medical History: Cancer, GERD/Reflux, Musculoskeletal Disorder, Rheumatoid Arthritis (RA) Additional Past Medical History / Comment(s): Hx of CA in Abd wall/surgery; migraines, bilateral neuropathy(legs and hands)- legs can give out causing falls , hx IBS, hx swine flu 2008-was INTUBATED, varicose veins, DDD History of Any Multi-Drug Resistant Organisms: MRSA Date of last positivie culture/infection: 06/2009 MDRO Source:: LUNGS Past Surgical History: Appendectomy, Bariatric Surgery, Section, Cholecystectomy, Hernia Repair, Tubal Ligation, Uterine Ablation Additional Past Surgical History / Comment(s): Laparoscopic misty-en-y gastric bypass with EGD. PEG tube/later removed, Tracheostomy 2008 when she had the swine flu. Panniculectomy 07/25/16, 3 ABDOMINAL hernias removed Past Anesthesia/Blood Transfusion Reactions: Motion Sickness, Postoperative Nausea & Vomiting (PONV) Additional Past Anesthesia/Blood Transfusion Reaction / Comment(s): Pt states she has never received blood. Past Psychological History: Anxiety, Bipolar, Depression, PTSD Smoking Status: Former smoker Past Alcohol Use History: None Reported Past Drug Use History: None Reported - Past Family History Mother Family Medical History: Asthma, Congestive Heart Failure (CHF), COPD, Diabetes Mellitus, GERD/Reflux, Hypertension, Pneumonia, Sleep Apnea/CPAP/BIPAP Additional Family Medical History / Comment(s): varicose veins, enlarged heart. Father Family Medical History: Hypertension Additional Family Medical History / Comment(s): Father is living. General Exam Limitations: no limitations General appearance: alert, in no apparent distress Head exam: Present: atraumatic, normocephalic Eye exam: Present: normal appearance Neck exam: Present: full ROM, other (No tenderness.) Respiratory exam: Present: normal lung sounds bilaterally Cardiovascular Exam: Present: regular rate, normal rhythm Extremities exam: Present: normal inspection, normal capillary refill, other ( Tenderness over left elbow and wrist. Slight decrease in left elbow and wrist ROM.) Neurological exam: Present: alert, oriented X3 Psychiatric exam: Present: normal affect, normal mood Skin exam: Present: warm, dry Course Vital Signs 05/30/18 15:47 Temperature 98.0 F Pulse Rate 73 Respiratory 18 Rate Blood Pressure 117/82 O2 Sat by Pulse 99 Oximetry Medical Decision Making - Medical Decision Making Forearm x-ray reveals no fracture or dislocation. Case discussed in detail with attending physician Dr. Dickerson. Disposition Clinical Impression: Contusion of left forearm Disposition: HOME SELF-CARE Condition: Good Instructions: Contusion in Adults (ED) Additional Instructions: Follow up with PCP in 2 days. Return to emergency department if symptoms worsen or any other concerns. Is patient prescribed a controlled substance at d/c from ED?: No Referrals: Tushar Majano MD [Primary Care Provider] - 1-2 days Time of Disposition: 17:10
[2018-05-30 17:24] VITALS: BP 109/76; PULSE 60; TEMP 98
== END 2018-05-30 17:23 | disposition home or self-care (01) ==
LOC: EC 15:36
DX: S50.12XA Contusion of left forearm, initial encounter (principal); M06.9 Rheumatoid arthritis, unspecified; Z85.89 Personal history of malignant neoplasm of other organs and systems; F31.9 Bipolar disorder, unspecified; F41.9 Anxiety disorder, unspecified; F43.10 Post-traumatic stress disorder, unspecified; Z86.14 Personal history of Methicillin resistant Staphylococcus aureus infection; Z87.891 Personal history of nicotine dependence; Z79.899 Other long term (current) drug therapy; Z88.5 Allergy status to narcotic agent; Z88.6 Allergy status to analgesic agent; Z91.011 Allergy to milk products; Z88.8 Allergy status to other drugs, medicaments and biological substances; W01.0XXA Fall on same level from slipping, tripping and stumbling without subsequent striking against object, initial encounter; Y92.000 Kitchen of unspecified non-institutional (private) residence as the place of occurrence of the external cause
CPT/HCPCS: 99283

== ENCOUNTER 2018-06-07 06:05 | Day surgery (SDC) | payer OTHER ==
[2018-05-29 11:47] VITALS: BMI 24.8
[2018-06-07] MEDS ORDERED: LACTATED RINGERS 1,000 ML IV SCH (06:07)
[2018-06-07] MEDS ORDERED: LIDOCAINE 1% 20 ML VIAL (10MG/ML) FOR IV START INTRADERMA PRN (06:07)
[2018-06-07] MEDS ORDERED: ONDANSETRON 4 MG/2 ML VIAL IVP ONE (06:07)
[2018-06-07] MEDS ORDERED: SCOPOLAMINE 1.5MG/72HR PATCH TRANSDERM ONE (06:07)
[2018-06-07] MEDS ORDERED: DEXAMETHASONE SOD PHOSPHATE 10 MG/ML 1 ML VIAL IV ONE (06:07)
[2018-06-07] MEDS ORDERED: ceFAZolin IN SWFI 2 GM/20 ML SYRINGE IVP ONE (07:12)
[2018-06-07] MEDS ORDERED: ACETAMINOPHEN IV (For NPO) 1,000 MG in EMPTY BAG 1 BAG IVPB ONE (07:12)
--- NOTE | 2018-06-07 07:17 | P.GSHP ---
History of Present Illness H&P Date: 06/07/18 CHIEF COMPLAINT: Painful lesions along the bilateral hips HISTORY OF PRESENT ILLNESS: The patient is a 43 year-old female with history of lipomas of the bilateral hips. She presents today for surgical excision. PAST MEDICAL HISTORY: Please see list. PAST SURGICAL HISTORY: Please see list. MEDICATIONS: Please see list. ALLERGIES: Please see list. SOCIAL HISTORY: No illicit drug use FAMILY HISTORY: No reports of Crohn disease or ulcerative colitis. REVIEW OF ORGAN SYSTEMS: CONSTITUTIONAL: No reports of fevers or chills. GI: Denies any blood in stools or constipation. PHYSICAL EXAM: VITAL SIGNS: Stable Musculoskeletal: Approximately 3 cm lipomas, superficial, along the bilateral hips SKIN: Lesion identified along bilateral thighs. GENERAL: Well developed and in no acute distress. Pleasant. HEENT: No sclera icterus. Extraocular movements grossly intact. Moist buccal mucosa. Head is atraumatic, normocephalic. Hears conversational speech. No nasal drainage. NECK: Supple without lymphadenopathy. No JV distention. CHEST: Non-labored respirations and equal bilateral excursions. CARDIOVASCULAR: Regular rate and rhythm. Palpable 2+ radial pulses. ABDOMEN: Soft. Non-tender. Nondistended. NEUROLOGIC: No focal or lateralizing signs. PSYCH: Appropriate affect. Alert and oriented to person, place and time. ASSESSMENT: 1. Lipomas along the bilateral hips 2. Family history of colon cancer. PLAN: 1. Will proceed of excision of subcutaneous tumors along the bilateral hips 2. DVT prophylaxis. 3. Antibiotic prophylaxis. 4. Time of recovery, at least one week. Past Medical History Past Medical History: Cancer, GERD/Reflux, Musculoskeletal Disorder, Rheumatoid Arthritis (RA) Additional Past Medical History / Comment(s): Hx of CA in Abd wall/surgery; migraines, bilateral neuropathy(legs and hands)- legs can give out causing falls , hx IBS, hx swine flu 2008-was INTUBATED, varicose veins, DDD History of Any Multi-Drug Resistant Organisms: MRSA Date of last positivie culture/infection: 06/2009 MDRO Source:: LUNGS Past Surgical History: Appendectomy, Bariatric Surgery, Section, Cholecystectomy, Hernia Repair, Tubal Ligation, Uterine Ablation Additional Past Surgical History / Comment(s): Laparoscopic misty-en-y gastric bypass with EGD. PEG tube/later removed, Tracheostomy 2008 when she had the swine flu. Panniculectomy 07/25/16, 3 ABDOMINAL hernias removed Past Anesthesia/Blood Transfusion Reactions: Motion Sickness, Postoperative Nausea & Vomiting (PONV) Additional Past Anesthesia/Blood Transfusion Reaction / Comment(s): Pt states she has never received blood. Past Psychological History: Anxiety, Bipolar, Depression, PTSD Smoking Status: Former smoker Past Alcohol Use History: None Reported Past Drug Use History: None Reported - Past Family History Mother Family Medical History: Asthma, Congestive Heart Failure (CHF), COPD, Diabetes Mellitus, GERD/Reflux, Hypertension, Pneumonia, Sleep Apnea/CPAP/BIPAP Additional Family Medical History / Comment(s): varicose veins, enlarged heart. Father Family Medical History: Hypertension Additional Family Medical History / Comment(s): Father is living. Medications and Allergies Home Medications Medication Instructions Recorded Confirmed Type PARoxetine [Paxil] 20 mg PO QAM 04/09/17 06/07/18 History OXcarbazepine [Trileptal] 300 mg PO BID 11/06/17 06/07/18 History Nystatin-Triamcinolone Oint 1 applic TOPICAL TID 04/11/18 06/07/18 History [Mycolog 100,000-0.1 Unit/gm-% Oint] QUEtiapine FUMARATE [SEROquel] 300 mg PO HS 04/11/18 06/07/18 History Butalb/APAP/Caff 50-325-40Mg 1 tab PO Q4H PRN 05/29/18 06/07/18 History [Fioricet 50-325-40] Cetirizine HCl [Zyrtec] 10 mg PO DAILY 05/29/18 06/07/18 History Allergies Allergy/AdvReac Type Severity Reaction Status Date / Time meperidine HCl [From Demerol] Allergy Severe "BECAME Verified 06/07/18 06:23 BELIGERENT" Milk Containing Products Allergy Severe Nausea & Verified 06/07/18 06:23 [Dairy] Vomiting & Diarrhea guaifenesin [From Robitussin] Allergy Mild WHEEZING Verified 06/07/18 06:23 FROM COUGH SYRUP WITH CODEINE codeine Allergy Unknown Wheezing Verified 06/07/18 06:23 Iodinated Contrast- Oral and Allergy Itching Verified 06/07/18 06:23 IV Dye propoxyphene Allergy Rash/Hives Verified 06/07/18 06:23 [From Darjessicat-N] zonisamide [From Zonegran] Allergy Anaphylaxis Verified 06/07/18 06:23 aspirin AdvReac "MAKES Verified 06/07/18 06:23 BLOOD TOO THIN" NSAIDS (Non-Steroidal AdvReac DOES NOT Verified 06/07/18 06:23 Anti-Inflamma USE R/T BARIATRIC SX Surgical - Exam Vital Signs Temp Pulse Resp BP Pulse Ox 97.1 F L 64 18 121/73 97 06/07/18 06:32 06/07/18 06:32 06/07/18 06:32 06/07/18 06:32 06/07/18 06:32
[2018-06-07] MEDS ORDERED: LIDOCAINE 1% INJ 10MG/ML (20 ML MDV) ONE (07:23)
[2018-06-07] MEDS ORDERED: PROPOFOL 10 MG/ML 20 ML VIAL IV ONE (07:23)
[2018-06-07] MEDS ORDERED: SUCCINYLCHOLINE CHLORIDE 100 MG/5 ML SYR IV ONE (07:23)
[2018-06-07] MEDS ORDERED: fentaNYL (PF) 50 MCG/ML 2 ML AMP ONE (07:23)
[2018-06-07] MEDS ORDERED: ePHEDrine SULFATE/0.9% NACL/PF 50 MG/5 ML SYRINGE IV ONE (07:23)
[2018-06-07] MEDS ORDERED: MIDAZOLAM 2 MG/2 ML VIAL ONE (07:23)
[2018-06-07] MEDS ORDERED: SODIUM CHLORIDE 0.9% 50 ML with ceFAZolin 2,000 MG IV ONE ×2 (07:46)
[2018-06-07] MEDS ORDERED: LACTATED RINGERS 1,000 ML IV ONE (08:00)
[2018-06-07] MEDS ORDERED: BUPIVACAIN-EPI 0.25%-1:200,000 30 ML VIAL SQ ONE (08:05)
--- NOTE | 2018-06-07 08:38 | P.OP ---
Date of Procedure: 06/07/18 Description of Procedure: Date of Procedure: 06/07/18 SURGEON: JANIE MISHRA MD CORRUGATOR HELPER: NONE. PREOPERATIVE DIAGNOSES: 1. Right flank tumor. 2. Left flank tumor. POSTOPERATIVE DIAGNOSES: 1. Right flank subcutaneous tumor. 2. Left flank subcutaneous tumor. OPERATION: 1. Excision of right flank subcutaneous tumor, 8 x 4 cm. 2. Intermediate closure right flank incision, 9 cm. 3. Excision of left flank subcutaneous tumor, 6 x 2 cm. 4. Intermediate closure left flank incision, 7 cm. Anesthesia: GETA, local Disposition: same day ESTIMATED BLOOD LOSS: 10 mL. SPECIMENS REMOVED: 1. Right flank subcutaneous tumor 2. Left flank subcutaneous tumor COMPLICATIONS: None. INDICATIONS: The patient is a 43-year-old female who presents with left flank subcutaneous tumor included right flank subcutaneous tumor. Surgical options, including excision was discussed. Benefits and risks were described. Informed consent was obtained. DESCRIPTION OF PROCEDURE: Patient was brought into the operating room. After general induction, the patient was positioned prone and the abdomen and flanks were prepped and draped in standard sterile fashion using ChloraPrep. A timeout protocol was confirmed with the surgical team regarding patient's name including procedures to be performed. Preoperative medications was administered. Next, field block local anesthetic was administered. The right flank mass was measured using a ruler with borders marked with indelible marker. An elliptical incision of 8 x 4 cm in size into the dermis followed by circumferential dissection using electro-Bovie cautery into the deep subcutaneous tissue. Hemostasis was checked with electrocautery cautery. The wound was closed of 9- cm length in multiple layers including 0 Vicryl for the deep subcutaneous tissue. 3-0 Vicryl was placed interrupted along the deep dermis. The skin was closed using 4-0 Monocryl. Dermabond tape including liquid was used as the final fourth layer. The skin was cleansed. Optifoam dressing was placed. Attention was now placed to the left flank. Next, field block local anesthetic was administered. The left flank mass was measured using a ruler with borders marked with indelible marker. An elliptical incision of 6 x 2 cm in size into the dermis followed by circumferential dissection using electro-Bovie cautery into the deep subcutaneous tissue. Hemostasis was checked with electrocautery cautery. The wound of 7 cm was closed in multiple layers including 0 Vicryl for the deep subcutaneous tissue. 3-0 Vicryl was placed interrupted along the deep dermis. The skin was closed using 4-0 Monocryl. Dermabond tape including liquid was used as the final fourth layer.The skin was cleansed. Optifoam dressing was placed. At the end of the procedure, needle, sponge, and instrument count had been verified correct by the metal technician. The patient was taken to the postanesthesia care unit in stable condition. FINDINGS: 1. Left flank tumor, 6 x 2 cm extension into deep subcutaneous tissue. 2. Right flank tumor, 8 x 4 cm extension into deep subcutaneous tissue. Providers Attending physician: Janie Mishra Primary care physician: Tushar Majano Plan - Discharge Summary New Discharge Prescriptions: New HYDROcodone/APAP 7.5-325MG [[place] 7.5-325] 1 tab PO Q4H PRN 3 Days #18 tab PRN Reason: Pain No Action PARoxetine [Paxil] 20 mg PO QAM OXcarbazepine [Trileptal] 300 mg PO BID QUEtiapine FUMARATE [SEROquel] 300 mg PO HS Nystatin-Triamcinolone Oint [Mycolog 100,000-0.1 Unit/gm-% Oint] 1 applic TOPICAL TID Butalb/APAP/Caff 50-325-40Mg [Fioricet 50-325-40] 1 tab PO Q4H PRN PRN Reason: migraines Cetirizine HCl [Zyrtec] 10 mg PO DAILY Discharge Medication List PARoxetine [Paxil] 20 mg PO QAM 04/09/17 [History] OXcarbazepine [Trileptal] 300 mg PO BID 11/06/17 [History] Nystatin-Triamcinolone Oint [Mycolog 100,000-0.1 Unit/gm-% Oint] 1 applic TOPICAL TID 04/11/18 [History] QUEtiapine FUMARATE [SEROquel] 300 mg PO HS 04/11/18 [History] Butalb/APAP/Caff 50-325-40Mg [Fioricet 50-325-40] 1 tab PO Q4H PRN 05/29/18 [ History] Cetirizine HCl [Zyrtec] 10 mg PO DAILY 05/29/18 [History] HYDROcodone/APAP 7.5-325MG [[place] 7.5-325] 1 tab PO Q4H PRN 3 Days #18 tab 06/07 [Rx] Follow up Appointment(s)/Referral(s): [facility] [[facility]STAFF] - 06/12/18 3:40 pm (TO BE SEEN AT [facility] NOT [facility]) Patient Instructions/Handouts: *Surgery [facility] - (Anesthesia) Discharge Instructions Outpatient Surgery Activity/Diet/Wound Care/Special Instructions: No bath tub soaks. May shower. Do not remove dressings until 06/13/2018. Avoid lifting more than 4 pounds in 1 week Discharge Disposition: HOME SELF-CARE
[2018-06-07 08:57] VITALS: TEMP 97
[2018-06-07] MEDS: HYDROmorphone 1 MG/ML 1 ML SYRINGE IVP PRN ×4 (09:17→09:55)
[2018-06-07] MEDS ORDERED: HYDROcodone/APAP 7.5-325MG 1 EACH TAB PO ONE (10:30)
[2018-06-07 10:47] VITALS: BP 112/72; PULSE 90; RESP 18
== END 2018-06-07 11:07 | disposition home or self-care (01) ==
LOC: OR 06:05
PROVIDERS: ATTEND Surgery Plastic and Reconstructive Surgery
DX: L90.5 Scar conditions and fibrosis of skin (principal); L92.3 Foreign body granuloma of the skin and subcutaneous tissue; K21.9 Gastro-esophageal reflux disease without esophagitis; M06.9 Rheumatoid arthritis, unspecified; G43.909 Migraine, unspecified, not intractable, without status migrainosus; G57.93 Unspecified mononeuropathy of bilateral lower limbs; G56.93 Unspecified mononeuropathy of bilateral upper limbs; K58.9 Irritable bowel syndrome, unspecified; I83.90 Asymptomatic varicose veins of unspecified lower extremity; F41.9 Anxiety disorder, unspecified; F31.9 Bipolar disorder, unspecified; F43.10 Post-traumatic stress disorder, unspecified; J30.2 Other seasonal allergic rhinitis; Z79.899 Other long term (current) drug therapy; Z91.041 Radiographic dye allergy status; Z88.6 Allergy status to analgesic agent; Z88.5 Allergy status to narcotic agent; Z88.8 Allergy status to other drugs, medicaments and biological substances; Z91.011 Allergy to milk products; Z98.51 Tubal ligation status; Z98.84 Bariatric surgery status; Z90.3 Acquired absence of stomach [part of]; Z90.49 Acquired absence of other specified parts of digestive tract; Z85.89 Personal history of malignant neoplasm of other organs and systems; Z86.14 Personal history of Methicillin resistant Staphylococcus aureus infection; Z87.891 Personal history of nicotine dependence; Z80.0 Family history of malignant neoplasm of digestive organs
CPT/HCPCS: 81025; 88305; 11406 ×2; 12035; J2250; J1100; J2405; J2001; J3010; J1170; J0690; J0131; J0330; J2704

== ENCOUNTER → 2018-07-11 | Outpatient (CLI) | payer OTHER ==
[2018-07-11 15:01] VITALS: BP 100/64; PULSE 80; TEMP 98.4; BMI 26.4
--- NOTE | 2018-07-11 15:28 | P.PN ---
Subjective Progress Note Date: 07/11/18 DATE OF SERVICE: 07/11/2018 CHIEF COMPLAINT: Morbid obesity HISTORY OF PRESENT ILLNESS: Jacinda Diamond is a 43-year-old female who is status post Dariana-en-Y gastric bypass in June of 2015. She is 3 years out. She is status post excision of bilateral abdominal flank 06/07/2018. She has gained 30 pounds in 1 year. She each much pasta. No abdominal pain. Her lifetime highest weight was 309 pounds. Today she comes in weighing 164 pounds from 154 pounds, 3 months ago. She has gained 10 pounds in 3 months. Her ideal body weight is 5 foot 6 frame is 154 pounds. She has lost 145 pounds, lifetime. Percent excess weight loss is 94 %. Body mass index has been reduced from 50.0 down to 26.5 PHYSICAL EXAM: VITAL SIGNS: 5 foot 6, 164 pounds. Body mass index of 26.5. Vital Signs Temp 98.4 F 07/11/18 14:54 Pulse 80 07/11/18 14:54 Resp BP 100/64 07/11/18 14:54 Pulse Ox ABDOMEN: Incisions along the flanks granulated. No pain GENERAL: Well-developed, pleasant female, no acute distress. HEENT: No sclerae icterus. Extraocular movements grossly intact. Well-healed scar from prior tracheostomy. No nasal drainage. RESPIRATORY: Nonlabored respirations. Equal bilateral excursions. CARDIOVASCULAR: Regular rate and regular rhythm. Palpable 2+ radial pulses. MUSCULOSKELETAL: No clubbing, cyanosis, or edema. NEURO: No focal or lateralizing signs. Cranial nerves II-12 grossly intact. PSYCH: Appropriate affect. Alert and oriented to person, place and time. SKIN: Good skin turgor. Well-perfused. ASSESSMENT: 1. Adenocarcinoma of the abdominal wall 2. Bilateral flank mass, subcutaneous 4 cm 3. Fatty liver disease 4. Status post gastric bypass 5. Morbid obesity excess calories, BMI 26.5 PLAN: 1. Recommend two week protein diet for weight loss 2. Also recommend cut back on carbs for weight re-gain Objective - Vital Signs Vital signs: Vital Signs Temp 98.4 F 07/11/18 14:54 Pulse 80 07/11/18 14:54 Resp BP 100/64 07/11/18 14:54 Pulse Ox Intake & Output 07/10/18 07/11/18 07/11/18 18:59 06:59 18:59 Weight 74.389 kg - Labs CBC & Chem 7: 07/11/18 15:53 07/11/18 15:53
[2018-07-11 16:14] LABS: HCT 40.6 % (34.0-46.0); HGB 13.4 gm/dL (11.4-16.0); MCH 30.8 pg (25.0-35.0); MCHC 32.9 g/dL (31.0-37.0); MCV 93.5 fL (80.0-100.0); Mean Platelet Volume 7.6; Platelet Count 149 k/uL (150-450); RBC 4.34 m/uL (3.80-5.40); RDW 12.6 % (11.5-15.5); WBC 4.7 k/uL (3.8-10.6)
[2018-07-11 16:23] LABS: Partial Thromboplastin Time 23.4 sec (22.0-30.0); Prothrombin Time 10.6 sec (9.0-12.0)
[2018-07-12 03:00] LABS: Albumin 4.6 g/dL (3.80-4.90); Albumin/Globulin Ratio 3.07 (1.20-2.10); Anion Gap 7.3 mmol/L (4.00-12.00); Calcium 8.9 mg/dL (8.7-10.3); Carbon Dioxide 28.7 mmol/L (21.6-31.8); Globulin 1.5 g/dL (1.6-3.3); LDL Cholesterol,Calculated 104.4 mg/dL (0.0-131.0); Total Bilirubin 0.2 mg/dL (0.3-1.2); Total Protein 6.1 g/dL (6.2-8.2); VLDL Calculation 13.6 mg/dL (5.00-40.00)
[2018-07-12 03:19] LABS: Iron Saturation 35.6 (12.00-45.00)
[2018-07-12 03:25] LABS: Parathyroid Hormone Intact 184.1 pg/mL (14.0-72.0)
[2018-07-12 03:27] LABS: Folate, Serum 8.5 ng/mL
[2018-07-12 03:28] LABS: Vitamin D 25 Hydroxy 13.6 ng/mL (30.0-100.0)
[2018-07-12 15:18] LABS: Vitamin A 52 ug/dL (38-106)
[2018-07-12 15:25] LABS: Zinc, Serum 60 ug/dL (60-130)
[2018-07-13 05:34] LABS: Vitamin B1 57 ug/L (38-122)
[2018-07-16 19:21] LABS: Selenium 129 mcg/L (63-160)
== END | disposition home or self-care (01) ==
LOC: BARWHC3 14:19
PROVIDERS: ATTEND Surgery Plastic and Reconstructive Surgery
DX: E66.01 Morbid (severe) obesity due to excess calories (principal); C44.509 Unspecified malignant neoplasm of skin of other part of trunk; R19.09 Other intra-abdominal and pelvic swelling, mass and lump; K76.0 Fatty (change of) liver, not elsewhere classified; Z68.26 Body mass index [BMI] 26.0-26.9, adult
CPT/HCPCS: 84255; 84134; 84425; 80061; 80053; 82607; 82728; 82525; 82746; 83540; 83550; 83735; 84100; 84443; 84590; 84630; 85027; 85610; 85730; 82306; 83970; 83036; 36415; G0463; 99211

== ENCOUNTER → 2018-09-13 | Outpatient (CLI) | payer OTHER ==
--- NOTE | 2018-09-14 09:58 | MM ---
Reason for exam: screening (asymptomatic). Last mammogram was performed 1 year ago. History: Patient has history of other cancer at age 42. Physical Findings: A clinical breast exam by your physician is recommended on an annual basis and results should be correlated with mammographic findings. MG Screening Mammo w CAD Bilateral CC and MLO view(s) were taken. Prior study comparison: September 01, 2017, bilateral MG screening mammo w CAD. The breast tissue is heterogeneously dense. This may lower the sensitivity of mammography. Benign appearing bilateral calcifications. No suspicious abnormality. No significant changes when compared with prior studies. ASSESSMENT: Benign, BI-RAD 2 RECOMMENDATION: Routine screening mammogram of both breasts in 1 year.
== END ==
LOC: RADMAMWWP 09:20
PROVIDERS: ATTEND Nurse Practitioner Women's Health
DX: Z12.31 Encounter for screening mammogram for malignant neoplasm of breast (principal)
CPT/HCPCS: 77067

== ENCOUNTER 2018-11-27 14:20 | Emergency (ER) | payer OTHER ==
[2018-11-27 15:05] LABS: Basophils % (A) 1 %; Eosinophils # (A) 0.2 k/uL (0-0.7); Eosinophils % (A) 3 %; HCT 38.6 % (34.0-46.0); Lymphocytes # (A) 1.4 k/uL (1.0-4.8); Lymphocytes % (A) 30 %; MCH 30.3 pg (25.0-35.0); MCHC 33.7 g/dL (31.0-37.0); Mean Platelet Volume 8.3; Monocytes # (A) 0.2 k/uL (0-1.0); Monocytes % (A) 4 %; Neutrophils # (A) 2.8 k/uL (1.3-7.7); Neutrophils % (A) 60 %; Platelet Count 166 k/uL (150-450); RBC 4.29 m/uL (3.80-5.40); RDW 13.2 % (11.5-15.5); WBC 4.6 k/uL (3.8-10.6)
[2018-11-27 15:12] LABS: Appearance,Urine Cloudy (Clear); Bacteria,Urine Few /hpf; Bilirubin,Urine Negative (Negative); Blood,Urine Trace (Negative); Color,Urine Yellow; Glucose,Urine (UA) Negative (Negative); Ketones,Urine Negative (Negative); Leukocyte Esterase,Urine Large (Negative); Mucus,Urine Occasional /hpf; Nitrite,Urine Positive (Negative); Protein,Urine Trace (Negative); RBC,Urine 4 /hpf (0-5); Specific Gravity,Urine 1.023 (1.001-1.035); Urobilinogen,Urine <2.0 mg/dL (<2.0); WBC,Urine 133 /hpf (0-5)
[2018-11-27] MEDS ORDERED: SODIUM CHLORIDE 0.9% 1,000 ML IV STA ×2 (15:13)
[2018-11-27] MEDS ORDERED: MORPHINE SULFATE 4 MG/ML SYRINGE IV STA (15:13)
[2018-11-27] MEDS ORDERED: ONDANSETRON 4 MG/2 ML VIAL IVP STA (15:13)
[2018-11-27] MEDS ORDERED: SODIUM CHLORIDE 0.9% 500 ML 500 ML IV STA (15:13)
[2018-11-27 15:17] LABS: ALT 23 U/L (9-52); AST 27 U/L (14-36); Albumin 4.3 g/dL (3.5-5.0); Alkaline Phosphatase 63 U/L (38-126); Amylase 52 U/L (30-110); Anion Gap 6 mmol/L; Blood Urea Nitrogen 10 mg/dL (7-17); Calcium 9.6 mg/dL (8.4-10.2); Carbon Dioxide 26 mmol/L (22-30); Chloride 110 mmol/L (98-107); Glucose 153 mg/dL (74-99); Lipase 114 U/L (23-300); Potassium 4.2 mmol/L (3.5-5.1); Sodium 142 mmol/L (137-145); Total Bilirubin 0.3 mg/dL (0.2-1.3); Total Protein 6.6 g/dL (6.3-8.2)
--- NOTE | 2018-11-27 15:23 | ED ---
Abdominal Pain HPI - General Chief Complaint: Abdominal Pain Stated Complaint: Abd pain Time Seen by Provider: 11/27/18 15:13 Source: patient, RN notes reviewed, old records reviewed Mode of arrival: ambulatory Limitations: no limitations - History of Present Illness Initial Comments: This is a 43-year-old female the ER for evasive severe abdominal pain nausea and vomiting. Patient severe epigastric abdominal pain and started after eating pizza today. She does have calm. Surgical history, patient a gastric bypass Misty-en-Y, cholecystectomy and multiple other abdominal surgeries. Patient himself fever complaining of severe epigastric abdominal pain, no current diarrhea or constipation. No recent hospital admissions. No recent travel history or sick contacts. No one in the family with similar complaint MD Complaint: abdominal pain -: hour(s) Location: epigastric Radiation: epigastric Migration to: no migration Severity: severe Severity scale (1-10): 8 Quality: cramping, stabbing, aching Consistency: constant Improves With: nothing Worsens With: eating Associated Symptoms: nausea, vomiting - Related Data Home Medications Medication Instructions Recorded Confirmed PARoxetine [Paxil] 20 mg PO QAM 04/09/17 11/27/18 OXcarbazepine [Trileptal] 300 mg PO BID 11/06/17 11/27/18 QUEtiapine FUMARATE [SEROquel] 300 mg PO HS 04/11/18 11/27/18 Butalb/APAP/Caff 50-325-40Mg 1 tab PO Q4H PRN 05/29/18 11/27/18 [Fioricet 50-325-40] Cetirizine HCl [Zyrtec] 10 mg PO DAILY 05/29/18 11/27/18 SUMAtriptan SUCCINATE [Sumatriptan 6 mg SQ Q30D 11/27/18 11/27/18 Succinate] Previous Rx's Medication Instructions Recorded Nitrofurantoin Monohyd/M-Cryst 100 mg PO Q12HR #14 cap 11/27/18 [Macrobid] Allergies Allergy/AdvReac Type Severity Reaction Status Date / Time meperidine HCl [From Demerol] Allergy Severe "BECAME Verified 11/27/18 15:19 BELIGERENT" Milk Containing Products Allergy Severe Nausea & Verified 11/27/18 15:19 [Dairy] Vomiting & Diarrhea guaifenesin [From Robitussin] Allergy Mild WHEEZING Verified 11/27/18 15:19 FROM COUGH SYRUP WITH CODEINE codeine Allergy Unknown Wheezing Verified 11/27/18 15:19 Iodinated Contrast- Oral and Allergy Itching Verified 11/27/18 15:19 IV Dye propoxyphene Allergy Rash/Hives Verified 11/27/18 15:19 [From Darvocet-N] zonisamide [From Zonegran] Allergy Anaphylaxis Verified 11/27/18 15:19 aspirin AdvReac "MAKES Verified 11/27/18 15:19 BLOOD TOO THIN" NSAIDS (Non-Steroidal AdvReac DOES NOT Verified 11/27/18 15:19 Anti-Inflamma USE R/T BARIATRIC SX Review of Systems ROS Statement: Those systems with pertinent positive or pertinent negative responses have been documented in the HPI. ROS Other: All systems not noted in ROS Statement are negative. Past Medical History Past Medical History: Cancer, GERD/Reflux, Musculoskeletal Disorder, Rheumatoid Arthritis (RA) Additional Past Medical History / Comment(s): Hx of CA in Abd wall/surgery;migra tommy, bilateral neuropathy(legs and hands)- legs can give out causing falls, hx IBS, hx swine flu 2008-was INTUBATED, varicose veins, DDD History of Any Multi-Drug Resistant Organisms: MRSA Date of last positivie culture/infection: 06/2009 MDRO Source:: LUNGS Past Surgical History: Appendectomy, Bariatric Surgery, Section, Cholecystectomy, Hernia Repair, Tubal Ligation, Uterine Ablation Additional Past Surgical History / Comment(s): Laparoscopic misty-en-y gastric bypass with EGD. PEG tube/later removed, Tracheostomy 2008 when she had the swine flu. Panniculectomy 07/25/16, 3 ABDOMINAL hernias removed Past Anesthesia/Blood Transfusion Reactions: Motion Sickness, Postoperative Nausea & Vomiting (PONV) Additional Past Anesthesia/Blood Transfusion Reaction / Comment(s): Pt states she has never received blood. Past Psychological History: Anxiety, Bipolar, Depression, PTSD Smoking Status: Former smoker Past Alcohol Use History: None Reported Past Drug Use History: None Reported - Past Family History Mother Family Medical History: Asthma, Congestive Heart Failure (CHF), COPD, Diabetes Mellitus, GERD/Reflux, Hypertension, Pneumonia, Sleep Apnea/CPAP/BIPAP Additional Family Medical History / Comment(s): varicose veins, enlarged heart. Father Family Medical History: Hypertension Additional Family Medical History / Comment(s): Father is living. General Exam Limitations: no limitations General appearance: alert, in no apparent distress Head exam: Present: atraumatic, normocephalic, normal inspection Eye exam: Present: normal appearance, PERRL, EOMI. Absent: scleral icterus, conjunctival injection, periorbital swelling ENT exam: Present: normal exam, mucous membranes moist Neck exam: Present: normal inspection. Absent: tenderness, meningismus, lymphadenopathy Respiratory exam: Present: normal lung sounds bilaterally. Absent: respiratory distress, wheezes, rales, rhonchi, stridor Cardiovascular Exam: Present: regular rate, normal rhythm, normal heart sounds. Absent: systolic murmur, diastolic murmur, rubs, gallop, clicks GI/Abdominal exam: Present: soft, tenderness, normal bowel sounds. Absent: distended, guarding, rebound, rigid Extremities exam: Present: normal inspection, full ROM, normal capillary refill. Absent: tenderness, pedal edema, joint swelling, calf tenderness Back exam: Present: normal inspection Neurological exam: Present: alert, oriented X3, CN II-XII intact Psychiatric exam: Present: normal affect, normal mood Skin exam: Present: warm, dry, intact, normal color. Absent: rash Course Vital Signs 11/27/18 11/27/18 11/27/18 14:28 16:02 18:11 Temperature 97.9 F Pulse Rate 82 60 54 L Respiratory 22 18 18 Rate Blood Pressure 115/77 109/74 104/69 O2 Sat by Pulse 99 100 99 Oximetry - Reevaluation(s) Reevaluation #1: Medical records reviewed Reevaluation #2: 11/27/18 18:57 Spoke with patient and patient has adequate pain control Medical Decision Making - Medical Decision Making 43 female the ER for evaluation for abdominal pain epigastric severe bowel pain with nausea after eating today. Patient is found to have inconsequential urinary tract infection, will place on antibiotics. Patient's pain is currently controlled with normal CAT scan normal lab values - Lab Data Result diagrams: 11/27/18 14:30 11/27/18 14:30 Lab Results 11/27/18 11/27/18 11/27/18 Range/Units 14:30 14:30 14:30 WBC 4.6 (3.8-10.6) k/uL RBC 4.29 (3.80-5.40) m/uL Hgb 13.0 (11.4-16.0) gm/dL Hct 38.6 (34.0-46.0) % MCV 90.0 (80.0-100.0) fL MCH 30.3 (25.0-35.0) pg MCHC 33.7 (31.0-37.0) g/dL RDW 13.2 (11.5-15.5) % Plt Count 166 (150-450) k/uL Neutrophils % 60 % Lymphocytes % 30 % Monocytes % 4 % Eosinophils % 3 % Basophils % 1 % Neutrophils # 2.8 (1.3-7.7) k/uL Lymphocytes # 1.4 (1.0-4.8) k/uL Monocytes # 0.2 (0-1.0) k/uL Eosinophils # 0.2 (0-0.7) k/uL Basophils # 0.0 (0-0.2) k/uL Sodium 142 (137-145) mmol/L Potassium 4.2 (3.5-5.1) mmol/L Chloride 110 H (98-107) mmol/L Carbon Dioxide 26 (22-30) mmol/L Anion Gap 6 mmol/L BUN 10 (7-17) mg/dL Creatinine 0.58 (0.52-1.04) mg/dL Est GFR (CKD-EPI)AfAm >90 (>60 ml/min/1.73 sqM) Est GFR (CKD-EPI)NonAf >90 (>60 ml/min/1.73 sqM) Glucose 153 H (74-99) mg/dL Plasma Lactic Acid Black (0.7-2.0) mmol/L Calcium 9.6 (8.4-10.2) mg/dL Total Bilirubin 0.3 (0.2-1.3) mg/dL AST 27 (14-36) U/L ALT 23 (9-52) U/L Alkaline Phosphatase 63 (38-126) U/L Creatine Kinase (30-135) U/L Total Protein 6.6 (6.3-8.2) g/dL Albumin 4.3 (3.5-5.0) g/dL Amylase 52 (30-110) U/L Lipase 114 (23-300) U/L Urine Color Yellow Urine Appearance Cloudy H (Clear) Urine pH 5.0 (5.0-8.0) Ur Specific [place] 1.023 (1.001-1.035) Urine Protein Trace H (Negative) Urine Glucose (UA) Negative (Negative) Urine Ketones Negative (Negative) Urine Blood Trace H (Negative) Urine Nitrite Positive H (Negative) Urine Bilirubin Negative (Negative) Urine Urobilinogen <2.0 (<2.0) mg/dL Ur Leukocyte Esterase Large H (Negative) Urine RBC 4 (0-5) /hpf Urine WBC 133 H (0-5) /hpf Urine Bacteria Few H (None) /hpf Urine Mucus Occasional H (None) /hpf 11/27/18 11/27/18 Range/Units 14:30 15:30 WBC (3.8-10.6) k/uL RBC (3.80-5.40) m/uL Hgb (11.4-16.0) gm/dL Hct (34.0-46.0) % MCV (80.0-100.0) fL MCH (25.0-35.0) pg MCHC (31.0-37.0) g/dL RDW (11.5-15.5) % Plt Count (150-450) k/uL Neutrophils % % Lymphocytes % % Monocytes % % Eosinophils % % Basophils % % Neutrophils # (1.3-7.7) k/uL Lymphocytes # (1.0-4.8) k/uL Monocytes # (0-1.0) k/uL Eosinophils # (0-0.7) k/uL Basophils # (0-0.2) k/uL Sodium (137-145) mmol/L Potassium (3.5-5.1) mmol/L Chloride (98-107) mmol/L Carbon Dioxide (22-30) mmol/L Anion Gap mmol/L BUN (7-17) mg/dL Creatinine (0.52-1.04) mg/dL Est GFR (CKD-EPI)AfAm (>60 ml/min/1.73 sqM) Est GFR (CKD-EPI)NonAf (>60 ml/min/1.73 sqM) Glucose (74-99) mg/dL Plasma Lactic Acid Black 1.0 (0.7-2.0) mmol/L Calcium (8.4-10.2) mg/dL Total Bilirubin (0.2-1.3) mg/dL AST (14-36) U/L ALT (9-52) U/L Alkaline Phosphatase (38-126) U/L Creatine Kinase 58 (30-135) U/L Total Protein (6.3-8.2) g/dL Albumin (3.5-5.0) g/dL Amylase (30-110) U/L Lipase (23-300) U/L Urine Color Urine Appearance (Clear) Urine pH (5.0-8.0) Ur Specific [place] (1.001-1.035) Urine Protein (Negative) Urine Glucose (UA) (Negative) Urine Ketones (Negative) Urine Blood (Negative) Urine Nitrite (Negative) Urine Bilirubin (Negative) Urine Urobilinogen (<2.0) mg/dL Ur Leukocyte Esterase (Negative) Urine RBC (0-5) /hpf Urine WBC (0-5) /hpf Urine Bacteria (None) /hpf Urine Mucus (None) /hpf - Radiology Data Radiology results: report reviewed (CT head and pelvis is negative for acute disease), image reviewed Disposition Clinical Impression: Abdominal pain, UTI (urinary tract infection), Nausea & vomiting Disposition: HOME SELF-CARE Condition: Good Instructions (If sedation given, give patient instructions): Urinary Tract Infection in Women (ED), Acute Nausea and Vomiting (ED), Abdominal Pain (ED) Prescriptions: Nitrofurantoin Monohyd/M-Cryst [Macrobid] 100 mg PO Q12HR #14 cap Is patient prescribed a controlled substance at d/c from ED?: No Referrals: Tushar Majano MD [Primary Care Provider] - 1-2 days
[2018-11-27] MEDS ORDERED: methylPREDNISolone SOD SUCCI 125 MG/2 ML VIAL IV STA (16:14)
[2018-11-27] MEDS ORDERED: PANTOPRAZOLE 40 MG/10 ML VIAL IVP STA (16:14)
[2018-11-27] MEDS ORDERED: FAMOTIDINE 20 MG/2 ML VIAL IV STA (16:14)
[2018-11-27] MEDS ORDERED: MORPHINE SULFATE 4 MG/ML SYRINGE IVP PRN (16:14)
[2018-11-27] MEDS ORDERED: diphenhydrAMINE 50 MG/ML 1 ML VIAL IVP STA (16:14)
[2018-11-27 16:24] VITALS: RESP 18
[2018-11-27] MEDS: IOPAMIDOL-300 CONTRAST 30 ML VIAL (ORAL USE) PO PRN ×2 (17:23→17:24)
--- NOTE | 2018-11-27 17:56 | CT ---
EXAMINATION TYPE: CT abdomen pelvis w con DATE OF EXAM: 11/27/2018 COMPARISON: 03/26/2018 HISTORY: Abdominal pain. CT DLP: 798.2 mGycm Automated exposure control for dose reduction was used. TECHNIQUE: Helical acquisition of images was performed from the lung bases through the pelvis. CONTRAST: Performed with Oral Contrast and with IV Contrast, patient injected with 100ml mL of Isovue 300. FINDINGS: There is minimal atelectasis in the left lower lobe. There is no pleural effusion. There is no perica rdial effusion. Heart appears normal. There are apparent surgical clips from bariatric surgery on the stomach. There are clips from cholecy stectomy. Liver shows no focal defect. Spleen appears normal. There is no evidence of pancreatic mass . There is no adrenal mass. Kidneys show satisfactory contrast opacification. There is no hydronephrosi s. There is no retroperitoneal adenopathy. Bladder distends smoothly. Uterus is anteverted. There is no free fluid in the pelvis. There are phleboliths in the pelvis. There is no inguinal hernia. There is no evidence of a pelvic mass. Appendix is not seen. There is no sign of appendicitis. There is no mesenteric edema. There is no ascites or free air. THE BONY PELVIS IS INTACT. LUMBAR SPINE IS INTACT. IMPRESSION: Negative CT scan of the abdomen and pelvis. Previous surgery. There is minimal interstitial infiltrat e at the lung bases not significantly different than old exam.
[2018-11-27 18:16] VITALS: PULSE 54
[2018-11-27] MEDS ORDERED: ONDANSETRON 4 MG ODT STARTER PACK 2 TAB BTL PO STA (18:22)
[2018-11-27] MEDS ORDERED: ACET/COD 300 MG/30 MG STARTER PACK 6 TAB BTL PO STA (18:22)
[2018-11-27 19:31] VITALS: BP 96/54; TEMP 97.8
== END 2018-11-27 19:31 | disposition home or self-care (01) ==
LOC: EC 14:20
DX: R10.13 Epigastric pain (principal); R11.2 Nausea with vomiting, unspecified; N39.0 Urinary tract infection, site not specified; G43.909 Migraine, unspecified, not intractable, without status migrainosus; F41.9 Anxiety disorder, unspecified; F32.9 Major depressive disorder, single episode, unspecified; F43.10 Post-traumatic stress disorder, unspecified; Z85.028 Personal history of other malignant neoplasm of stomach; Z87.19 Personal history of other diseases of the digestive system; Z87.891 Personal history of nicotine dependence; Z86.14 Personal history of Methicillin resistant Staphylococcus aureus infection; Z90.49 Acquired absence of other specified parts of digestive tract; Z98.84 Bariatric surgery status; Z98.51 Tubal ligation status; Z98.890 Other specified postprocedural states; Z79.899 Other long term (current) drug therapy; Z88.5 Allergy status to narcotic agent; Z91.011 Allergy to milk products; Z88.8 Allergy status to other drugs, medicaments and biological substances; Z91.041 Radiographic dye allergy status; Z88.6 Allergy status to analgesic agent
CPT/HCPCS: 36415; 80053; 82150; 82550; 83605; 83690; 85025; 81001; 87086; 74177; 99284; 96365; 96375 ×6; 96361 ×2; J2270; J1200; J2930; J2405; J0696; S0119; C9113; Q9967

== ENCOUNTER → 2018-12-31 | Outpatient (CLI) | payer OTHER ==
--- NOTE | 2018-12-31 11:33 | CT ---
EXAMINATION TYPE: CT ChestAbdPelvis w con DATE OF EXAM: 12/31/2018 COMPARISON: 11/27/2018 and 03/26/2018 HISTORY: 43-year-old female Abdominal neoplasm, observe for METS TECHNIQUE: Contiguous axial scanning of the performed with IV Contrast, patient injected with 100 mL of Isovue 300. Delayed images through the kidneys were obtained. Coronal/sagittal reconstructions per formed. CT DLP: 602.6 mGycm Automated exposure control for dose reduction was used. FINDINGS: CHEST: Heart normal size without pericardial effusion. Aorta normal caliber with conventional arch vessel branching anatomy. No thoracic lymphadenopathy by CT size criteria. Scattered mild patchy groundglass and interstitial change in the mid and lower lungs remains unchange d from 03/26/2013. No consolidation or pleural effusion. ABDOMEN: No focal liver lesion or biliary ductal dilatation. Portal venous system is patent. Cholecystectomy clips are present. Additionally, there are postsurgical changes of Dariana-en-Y gastric bypass. Scattered prominent fluid-filled small bowel loops are present with small bowel loops measuring up to 2.8 cm. No mesenteric or retroperitoneal lymphadenopathy. There is some focal moderate fold thickening involving the lower ascending colon just distal to the i leocecal valve region, referred to axial image 88 and coronal image 39. Oral contrast has progressed to the rectum. Pelvis: Mild superficial bladder wall thickening. Multiple pelvic phlebolith. Uterus is visualized as are estrella ateral ovaries. No abnormal fluid collection in the pelvis or pelvic lymphadenopathy seen. Bones: Mild degenerative changes at the hips. Facet arthropathy lower lumbar spine. No osseous destructive p rocess. IMPRESSION: 1. FOCAL MODERATE FOLD THICKENING INVOLVING THE LOWER ASCENDING COLON JUST BEYOND THE ILEOCECAL VALVE REGION (AXIAL IMAGE 88 AND CORONAL IMAGE 39). FINDINGS MAY REFLECT A LOCALIZED NONSPECIFIC COLITIS. RECOMMEND DIRECT VISUALIZATION TO EXCLUDE NEOPLASM. 2. OTHERWISE, NO LYMPHADENOPATHY OR OTHER MASS SEEN TO SUGGEST METASTATIC DISEASE.
== END | disposition home or self-care (01) ==
LOC: RADCTMAIN 10:36
PROVIDERS: ATTEND Internal Medicine Hematology & Oncology
DX: K63.89 Other specified diseases of intestine (principal); Z03.89 Encounter for observation for other suspected diseases and conditions ruled out; Z88.5 Allergy status to narcotic agent; Z91.048 Other nonmedicinal substance allergy status; Z88.2 Allergy status to sulfonamides
CPT/HCPCS: 71260; 74177; Q9967

== ENCOUNTER 2019-01-24 09:46 | Day surgery (SDC) | payer OTHER ==
[2019-01-23 10:25] VITALS: BMI 25.8
[2019-01-24 10:07] VITALS: RESP 16; TEMP 97.6
[2019-01-24] MEDS ORDERED: PROPOFOL 10 MG/ML 20 ML VIAL IV ONE (10:22)
--- NOTE | 2019-01-24 11:22 | P.PCN ---
Date of Procedure: 01/24/19 Description of Procedure: BRIEF HISTORY: Patient is a 43-year-old pleasant female scheduled for an elective colonoscopy as a part of evaluation of an abnormal computed tomography scan of the abdomen. The patient underwent computed tomography scan abdomen on 12/31/2018 with findings of focal moderate fold thickening involving the lower ascending colon just beyond the ileocecal valve region with differential for the finding including localized nonspecific colitis and recommendation for direct visualization to exclude neoplasm. Patient denies any change in bowel habits, blood per rectum, or family history of colon cancer. PROCEDURE PERFORMED: Colonoscopy. PREOPERATIVE DIAGNOSIS: Abnormal computed tomography scan of the abdomen. ESTIMATED BLOOD LOSS: Minimal. IV sedation per Anesthesia. PROCEDURE: After informed consent was obtained, the patient, was brought into the endoscopy unit. IV sedation was administered by Anesthesia under continuous monitoring. Digital rectal examination was normal. Initially the Olympus CF-190 flexible video colonoscope was then inserted in the rectum, gradually advanced into the cecum without any difficulty. Careful examination was performed as the scope was gradually being withdrawn. Ileocecal valve and the appendiceal orifice were visualized and appeared normal. Prep was good. Mucosa of the cecum, ascending colon, transverse colon, descending colon, sigmoid colon, and rectum appeared normal. No findings in the ascending colon to correlate to abnormal CT scan findings. The patient however did have a tortuous redundant colon. Retroflexion was performed in the rectum and no lesions were seen, mild internal hemorrhoids. The patient tolerated the procedure well. IMPRESSION: No abnormal findings in the ascending colon to correlate with computed tomography scan finding. Normal-appearing colon from rectum to cecum. Colon tortuous with some redundant tissue noted, pediatric scope used during procedure. Mild internal hemorrhoids. RECOMMENDATIONS: Findings of this examination were discussed with the patient and her . Okay to resume diet. Okay to resume medications. Would recommend repeat screening colonoscopy at age of 51.
[2019-01-24] MEDS ORDERED: IV FLUID CONTINUATION 1,000 ML IV ONE (11:37)
[2019-01-24 12:03] VITALS: BP 115/80; PULSE 54
== END 2019-01-24 12:18 | disposition home or self-care (01) ==
LOC: ORWHC2ENDO 09:46
PROVIDERS: ATTEND Internal Medicine
DX: R93.3 Abnormal findings on diagnostic imaging of other parts of digestive tract (principal); Q43.9 Congenital malformation of intestine, unspecified; K64.8 Other hemorrhoids; Z88.5 Allergy status to narcotic agent; Z88.8 Allergy status to other drugs, medicaments and biological substances; Z88.6 Allergy status to analgesic agent; Z91.041 Radiographic dye allergy status; Z91.011 Allergy to milk products; K21.9 Gastro-esophageal reflux disease without esophagitis; M06.9 Rheumatoid arthritis, unspecified; K58.9 Irritable bowel syndrome, unspecified; Z79.899 Other long term (current) drug therapy; Z98.84 Bariatric surgery status
CPT/HCPCS: 81025; 45378; J2704

== ENCOUNTER → 2019-07-17 | Outpatient (CLI) | payer OTHER ==
[2019-07-17 15:25] LABS: HGB 13.4 gm/dL (11.4-16.0); MCH 30.6 pg (25.0-35.0); MCHC 32.7 g/dL (31.0-37.0); MCV 93.6 fL (80.0-100.0); Mean Platelet Volume 8.3; Platelet Count 155 k/uL (150-450); RBC 4.38 m/uL (3.80-5.40)
[2019-07-17 15:29] LABS: Partial Thromboplastin Time 23.6 sec (22.0-30.0); Prothrombin Time 10.3 sec (9.0-12.0)
[2019-07-17 19:30] LABS: % Iron Saturation 27.11 (12.00-45.00); Albumin 4.6 g/dL (3.80-4.90); Albumin/Globulin Ratio 2.71 (1.60-3.17); Anion Gap 5.3 mmol/L (4.00-12.00); BUN/Creat Ratio 15.71 Ratio (12.00-20.00); Calcium 9.3 mg/dL (8.7-10.3); Carbon Dioxide 30.7 mmol/L (21.6-31.8); Chol/HDL Ratio 2.33; Globulin 1.7 g/dL (1.6-3.3); LDL Cholesterol,Calculated 96.8 mg/dL (0.0-131.0); Non-African American GFR(CKD) 106.1 (60.0-200.0); Phosphorus 3.8 mg/dL (2.4-5.1); Potassium 3.9 mmol/L (3.5-5.5); Total Bilirubin 0.3 mg/dL (0.3-1.2); Total Protein 6.3 g/dL (6.2-8.2); VLDL Calculation 11.2 mg/dL (5.00-40.00)
[2019-07-17 19:38] LABS: Ferritin 40.5 ng/mL (10.0-291.0)
[2019-07-17 19:40] LABS: Folate, Serum 7.9 ng/mL
[2019-07-17 21:15] LABS: Hemoglobin A1C 4.9 % (4.0-6.0)
[2019-07-18 13:14] LABS: Zinc, Serum 53 ug/dL (60-130)
[2019-07-18 14:37] LABS: Vitamin A 43 ug/dL (38-106)
[2019-07-19 09:11] LABS: Vit B1(Thiamine) 69 ug/L (38-122)
== END | disposition home or self-care (01) ==
LOC: LABWHC1 14:51
PROVIDERS: ATTEND Surgery Plastic and Reconstructive Surgery
DX: E21.1 Secondary hyperparathyroidism, not elsewhere classified (principal); D50.9 Iron deficiency anemia, unspecified; E55.9 Vitamin D deficiency, unspecified; N19 Unspecified kidney failure; K50.90 Crohn's disease, unspecified, without complications; E44.0 Moderate protein-calorie malnutrition
CPT/HCPCS: 36415; 80053; 80061; 82306; 82525; 82607; 82728; 82746; 83036; 83540; 83550; 83735; 83970; 84100; 84134; 84255; 84425; 84443; 84590; 84630; 85027; 85610; 85730

== ENCOUNTER → 2019-08-14 | Outpatient (CLI) | payer OTHER ==
[2019-08-14 13:22] VITALS: BP 118/79; PULSE 86; TEMP 97.8; BMI 27.7
--- NOTE | 2019-08-14 13:44 | P.PN ---
Subjective Progress Note Date: 08/14/19 DATE OF SERVICE: 08/14/2019 CHIEF COMPLAINT: Status post gastric bypass HISTORY OF PRESENT ILLNESS: Jacinda Diamond is a 44-year-old female who is status post Dariana-en-Y gastric bypass in June of 2015. She is over 4 years out. Her lowest weight 127.8 pounds Aug 2016. Today her weight is 172 pounds. She has epigastric occasional abdominal pain. She denies gastroesophageal reflux disease. She reports food occasionally gets stuck once to twice per week with breads and meats including steak and pork chops. She reports fatigue. She comes in for cancer follow-up including a rare tumor found along the abdominal wall. She reports being more hungry than usual. She is eating more. She is getting 100 + grams protein daily. She is in a cancer group. Her lifetime highest weight was 309 pounds. Today she comes in weighing 172 pounds from 164 pounds, 1 year ago. She has gained 8 pounds in 1 year. Her ideal body weight is 5 foot 6 frame is 154 pounds. She has lost 137 pounds, lifetime. Percent excess weight loss is 89 %. Body mass index has been reduced from 50.0 down to 27.8. PAST MEDICAL HISTORY: 1. Moderate obesity. 2. Anxiety. 3. Depression. 4. Osteoarthritis of the lower back. 5. Osteoarthritis of the bilateral hips. 6. Gastroesophageal reflux disease. 7. Posttraumatic stress disorder. 8. Neuropathy of the lower extremities. 9. Migraines. 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 section. 2. Cholecystectomy. 3. Peg tube. 4. History tracheostomy secondary to vent-dependent respiratory failure. 5. Upper endoscopy with balloon dilatation. 6. Status post Dariana-en-Y gastric bypass. 7. Diagnostic laparoscopy, lysis of adhesions. 8. Panniculectomy, September 2016. 9. Excision of abdominal wall tumor MEDICATIONS: Home Medications Medication Instructions Recorded Confirmed Butalb/APAP/Caff 50-325-40Mg 1 tab PO Q4H PRN 05/29/18 09/04/19 [Fioricet 50-325-40] Doxylamine Succinate [Unisom] 25 mg PO HS 01/23/19 09/04/19 Cetirizine HCl [Zyrtec] 10 mg PO DAILY 08/14/19 09/04/19 Cholecalciferol [Vitamin D3 (25 5,000 units PO BID 08/14/19 09/04/19 Mcg = 1000 Iu)] Zinc 50 mg PO BID 08/14/19 09/04/19 diphenhydrAMINE [Benadryl] 50 mg PO HS 08/14/19 09/04/19 Topiramate [Topamax] 50 mg PO HS 09/04/19 09/04/19 ALLERGIES: CODEINE, EGGS, GUAIFENESIN, VICODIN, DEMEROL, OXYCONTIN, PENICILLIN, DARVOCET, ASPIRIN. SOCIAL HISTORY: Former tobacco use. FAMILY HISTORY: Notable for morbid obesity including diabetes. REVIEW OF SYSTEMS: MUSCULOSKELETAL: Has severe lower back pain. CONSTITUTIONAL: Her lifetime highest weight was 309 pounds. Her ideal body weight is 5 foot 6 frame is 154 pounds. Body mass index has been reduced from 50. GASTROINTESTINAL: No reports of dumping syndrome. Resolved gastroesophageal reflux disease. ENDOCRINE: No reports of diabetes or hypothyroidism. RESPIRATORY: Prior history of vent-dependent respiratory failure. No recent known history of pneumonia. Upper respiratory, resolution of obstructive sleep apnea. CARDIOVASCULAR: No reports of chest pain or palpitations. NEURO: No reports of stroke. Has chronic migraines. PSYCH: No reports of psychosis; however, history of depression. HEMATOLOGIC: No recent history of coagulopathy or blood clots. SKIN: Past panniculitis. No skin cancer. PHYSICAL EXAM: VITAL SIGNS: 5 foot 6, 172 pounds. Body mass index of 27.8. Vital Signs Temp 97.8 F 08/14/19 13:19 Pulse 86 08/14/19 13:19 Resp BP 118/79 08/14/19 13:19 Pulse Ox ABDOMEN: Soft, nontender. Non-distended. GENERAL: Well-developed, pleasant female, no acute distress. HEENT: No sclerae icterus. Extraocular movements grossly intact. Well-healed scar from prior tracheostomy. No nasal drainage. RESPIRATORY: Nonlabored respirations. Equal bilateral excursions. CARDIOVASCULAR: Regular rate and regular rhythm. Palpable 2+ radial pulses. MUSCULOSKELETAL: No clubbing, cyanosis, or edema. NEURO: No focal or lateralizing signs. Cranial nerves II-12 grossly intact. PSYCH: Appropriate affect. Alert and oriented to person, place and time. SKIN: Good skin turgor. Well-perfused. LABS: Vitamin D is low, PTH is elevated, Zinc is low ASSESSMENT: 1. Morbid obesity excess calories, BMI 50.0 to 26.5 2. History of adenocarcinoma of the abdominal wall 3. Status post gastric bypass 4. Vitamin D deficiency 5. Zinc deficiency 6. Secondary hyperparathyroidism 7. Dysphagia PLAN: 1. Bariatric labs were reviewed with Zinc deficiency and Vitamin D deficiency. Correction with Zinc 50 mg daily and Vitamin D 00514 units weekly advised 2. Recommend EGD dilation for dysphagia. 3. Labs reveiwed. Objective - Vital Signs Vital signs: Vital Signs Temp 97.8 F 08/14/19 13:19 Pulse 86 08/14/19 13:19 Resp BP 118/79 08/14/19 13:19 Pulse Ox Intake & Output 08/13/19 08/14/19 08/14/19 18:59 06:59 18:59 Weight 78.018 kg
== END | disposition home or self-care (01) ==
LOC: BARWHC3 12:59
PROVIDERS: ATTEND Surgery Plastic and Reconstructive Surgery
DX: E66.01 Morbid (severe) obesity due to excess calories (principal); K21.9 Gastro-esophageal reflux disease without esophagitis; G43.909 Migraine, unspecified, not intractable, without status migrainosus; F43.10 Post-traumatic stress disorder, unspecified; G62.9 Polyneuropathy, unspecified; M47.816 Spondylosis without myelopathy or radiculopathy, lumbar region; M16.0 Bilateral primary osteoarthritis of hip; F32.9 Major depressive disorder, single episode, unspecified; F41.9 Anxiety disorder, unspecified; Z90.49 Acquired absence of other specified parts of digestive tract; Z98.84 Bariatric surgery status; Z85.828 Personal history of other malignant neoplasm of skin; Z88.5 Allergy status to narcotic agent; Z88.0 Allergy status to penicillin; Z88.6 Allergy status to analgesic agent; Z87.891 Personal history of nicotine dependence; Z91.012 Allergy to eggs; Z68.27 Body mass index [BMI] 27.0-27.9, adult
CPT/HCPCS: 97803; G0463; 99211

== ENCOUNTER 2019-09-09 11:03 | Day surgery (SDC) | payer OTHER ==
[2019-09-04 15:15] VITALS: BMI 26.6
--- NOTE | 2019-09-08 19:06 | P.GSHP ---
History of Present Illness H&P Date: 09/09/19 CHIEF COMPLAINT: GERD HISTORY OF PRESENT ILLNESS: The patient is a 44-year-old female who presents reports gastroesophageal reflux disease. Upper endoscopy was offered for further evaluation and management. PAST MEDICAL HISTORY: Please see list. PAST SURGICAL HISTORY: Please see list. MEDICATIONS: Please see list. ALLERGIES: Please see list. SOCIAL HISTORY: No illicit drug use FAMILY HISTORY: No reports of Crohn disease or ulcerative colitis. REVIEW OF ORGAN SYSTEMS: CONSTITUTIONAL: No reports of fevers or chills. GI: Denies any blood in stools or constipation. PHYSICAL EXAM: VITAL SIGNS: Stable GENERAL: Well-developed and pleasant in no acute distress. HEENT: No scleral icterus. Extraocular movements grossly intact. Moist buccal mucosa. NECK: Supple without lymphadenopathy. CHEST: Unlabored respirations. Equal bilateral excursions. CARDIOVASCULAR: Regular rate and rhythm. Distal 2+ pulses. ABDOMEN: Soft, nondistended. MUSCULOSKELETAL: No clubbing, cyanosis, or edema. ASSESSMENT: 1. Gastroesophageal reflux disease PLAN: 1. Recommend proceeding with an upper endoscopy Past Medical History Past Medical History: Cancer, GERD/Reflux, Musculoskeletal Disorder, Rheumatoid Arthritis (RA) Additional Past Medical History / Comment(s): states "thickness to wall of colon on CT scan",Hx of CA in Abd wall/surgery;migraines, bilateral neuropathy(legs and hands)- legs can give out causing falls, hx IBS, hx swine flu 2008-was INTUBATED, varicose veins, DDD History of Any Multi-Drug Resistant Organisms: MRSA Date of last positivie culture/infection: 06/2009 MDRO Source:: LUNGS Past Surgical History: Appendectomy, Bariatric Surgery, Section, Cholecystectomy, Hernia Repair, Tubal Ligation, Uterine Ablation Additional Past Surgical History / Comment(s): Laparoscopic misty-en-y gastric bypass with EGD. PEG tube/later removed, Tracheostomy 2008 when she had the swine flu. Panniculectomy 07/25/16, 3 ABDOMINAL hernias removed,c sections x2 CANCER REMOVED FROM ABD. WALL, COLONOSCOPY Past Anesthesia/Blood Transfusion Reactions: Motion Sickness, Postoperative Nausea & Vomiting (PONV) Additional Past Anesthesia/Blood Transfusion Reaction / Comment(s): Pt states she has never received blood. Smoking Status: Former smoker - Past Family History Mother Family Medical History: Asthma, Congestive Heart Failure (CHF), COPD, Diabetes Mellitus, GERD/Reflux, Hypertension, Pneumonia, Sleep Apnea/CPAP/BIPAP Additional Family Medical History / Comment(s): varicose veins, enlarged heart,MS Father Family Medical History: Cancer Additional Family Medical History / Comment(s): colon Medications and Allergies Home Medications Medication Instructions Recorded Confirmed Type Butalb/APAP/Caff 50-325-40Mg 1 tab PO Q4H PRN 05/29/18 09/04/19 History [Fioricet 50-325-40] Doxylamine Succinate [Unisom] 25 mg PO HS 01/23/19 09/04/19 History Cetirizine HCl [Zyrtec] 10 mg PO DAILY 08/14/19 09/04/19 History Cholecalciferol [Vitamin D3 (25 5,000 units PO BID 08/14/19 09/04/19 History Mcg = 1000 Iu)] Zinc 50 mg PO BID 08/14/19 09/04/19 History diphenhydrAMINE [Benadryl] 50 mg PO HS 08/14/19 09/04/19 History Topiramate [Topamax] 50 mg PO HS 09/04/19 09/04/19 History Allergies Allergy/AdvReac Type Severity Reaction Status Date / Time meperidine HCl [From Demerol] Allergy Severe "BECAME Verified 09/04/19 15:06 BELIGERENT" Milk Containing Products Allergy Severe Nausea & Verified 09/04/19 15:06 [Dairy] Vomiting & Diarrhea guaifenesin [From Robitussin] Allergy Mild WHEEZING Verified 09/04/19 15:06 FROM COUGH SYRUP WITH CODEINE codeine Allergy Unknown Wheezing Verified 09/04/19 15:06 Iodinated Contrast Media Allergy Itching Verified 09/04/19 15:06 [Iodinated Contrast- Oral and IV Dye] propoxyphene Allergy Rash/Hives Verified 09/04/19 15:06 [From Darvocet-N] zonisamide [From Zonegran] Allergy Anaphylaxis Verified 09/04/19 15:06 aspirin AdvReac "MAKES Verified 09/04/19 15:06 BLOOD TOO THIN" NSAIDS (Non-Steroidal AdvReac DOES NOT Verified 09/04/19 15:06 Anti-Inflamma USE R/T BARIATRIC SX
[~2019-09-09 11:03] MED LIST changes: -LACTATED RINGERS 1,000 ML IV SCH; +LIDOCAINE 1% (10MG/ML) FOR IV START INTRADERMA PRN; -LIDOCAINE 1% 20 ML VIAL (10MG/ML) FOR IV START INTRADERMA PRN
[2019-09-09 11:27] VITALS: TEMP 97.9
[2019-09-09] MEDS: LACTATED RINGERS 1,000 ML IV SCH ×2 (11:33→14:05)
[2019-09-09] MEDS ORDERED: MIDAZOLAM 2 MG/2 ML VIAL IV ONE (12:48)
[2019-09-09] MEDS ORDERED: LIDOCAINE 1% INJ 10MG/ML (20 ML MDV) ONE (14:06)
[2019-09-09] MEDS ORDERED: PROPOFOL 10 MG/ML 20 ML VIAL IV ONE (14:06)
--- NOTE | 2019-09-09 14:25 | P.PCN ---
Date of Procedure: 09/09/19 Description of Procedure: PREOPERATIVE DIAGNOSIS: Dysphagia. Nausea with vomiting. POSTOPERATIVE DIAGNOSIS: Dysphagia. Morbid obesity. Gastrojejunal stricture without chronic ulcer without perforation OPERATION: Esophagogastrojejunoscopy with balloon dilatation from 15 to 20 mm. SURGEON: Janie Mishra MD ANESTHESIA: MAC. INDICATIONS: The patient is a 44-year-old female who presents with a history of dysphagia, including vomiting. Benefits and risks of the procedure were described. Informed consent was obtained. DESCRIPTION: The patient was brought into the endoscopy suite and laid in the left lateral decubitus position. After a timeout was confirmed, the procedure was initiated. An Olympus gastroscope was passed along the posterior oropharynx down to the distal esophagus where the squamocolumnar junction was unremarkable. The gastric pouch was entered. A gastrojejunal stricture of 15 mm was found as the adult gastroscope was 9.5 mm in size. A Ticket ABC balloon dilator was placed through the scope. Final insufflation up to 20 mm was performed with a total of 2 minutes. The scope was advanced up to 60 cm from the incisors into the Dariana limb. The mucosa of the gastrojejunal anastomosis was intact. No chronic gastrojejunal marginal ulcer was encountered. No full-thickness injury was encountered. The GI tract was desufflated. The patient tolerated the procedure well. FINDINGS: Squamocolumnar junction unremarkable at 37 cm. Blind jejunal limb of 7 cm Stricture of approximately 15 mm encountered. No chronic gastrojejunal ulceration encountered. Successful balloon dilatation to 20 mm. RECOMMENDATIONS: Liquid diet. Upper endoscopy as needed. Plan - Discharge Summary Discharge Rx Participant: No New Discharge Prescriptions: Continue Butalb/APAP/Caff 50-325-40Mg [Fioricet 50-325-40] 1 tab PO Q4H PRN PRN Reason: migraines Doxylamine Succinate [Unisom] 25 mg PO HS Cholecalciferol [Vitamin D3 (25 Mcg = 1000 Iu)] 5,000 units PO BID diphenhydrAMINE [Benadryl] 50 mg PO HS Zinc 50 mg PO BID Cetirizine HCl [Zyrtec] 10 mg PO DAILY Topiramate [Topamax] 50 mg PO HS Discharge Medication List Butalb/APAP/Caff 50-325-40Mg [Fioricet 50-325-40] 1 tab PO Q4H PRN 05/29/18 [History] Doxylamine Succinate [Unisom] 25 mg PO HS 01/23/19 [History] Cetirizine HCl [Zyrtec] 10 mg PO DAILY 08/14/19 [History] Cholecalciferol [Vitamin D3 (25 Mcg = 1000 Iu)] 5,000 units PO BID 08/14/19 [History] Zinc 50 mg PO BID 08/14/19 [History] diphenhydrAMINE [Benadryl] 50 mg PO HS 08/14/19 [History] Topiramate [Topamax] 50 mg PO HS 09/04/19 [History] Follow up Appointment(s)/Referral(s): Janie Mishra MD [STAFF PHYSICIAN] - 09/18/19 Patient Instructions/Handouts: Esophageal Dilation (DC) Activity/Diet/Wound Care/Special Instructions: Diet as tolerated Discharge Disposition: HOME SELF-CARE
[2019-09-09 14:45] VITALS: BP 110/74; PULSE 64; RESP 20
== END 2019-09-09 15:11 | disposition home or self-care (01) ==
LOC: ORWHC2ENDO 11:03
PROVIDERS: ATTEND Surgery Plastic and Reconstructive Surgery
DX: K21.9 Gastro-esophageal reflux disease without esophagitis (principal); E66.01 Morbid (severe) obesity due to excess calories; K56.699 Other intestinal obstruction unspecified as to partial versus complete obstruction; M06.9 Rheumatoid arthritis, unspecified; G43.909 Migraine, unspecified, not intractable, without status migrainosus; G62.9 Polyneuropathy, unspecified; I83.90 Asymptomatic varicose veins of unspecified lower extremity; Z79.899 Other long term (current) drug therapy; Z85.028 Personal history of other malignant neoplasm of stomach; Z86.19 Personal history of other infectious and parasitic diseases; Z87.19 Personal history of other diseases of the digestive system; Z86.14 Personal history of Methicillin resistant Staphylococcus aureus infection; Z90.49 Acquired absence of other specified parts of digestive tract; Z98.84 Bariatric surgery status; Z98.891 History of uterine scar from previous surgery; Z98.51 Tubal ligation status; Z98.890 Other specified postprocedural states; Z87.891 Personal history of nicotine dependence; Z82.49 Family history of ischemic heart disease and other diseases of the circulatory system; Z83.3 Family history of diabetes mellitus; Z83.6 Family history of other diseases of the respiratory system; Z82.5 Family history of asthma and other chronic lower respiratory diseases; Z80.9 Family history of malignant neoplasm, unspecified; Z88.5 Allergy status to narcotic agent; Z91.011 Allergy to milk products; Z91.041 Radiographic dye allergy status; Z88.8 Allergy status to other drugs, medicaments and biological substances; Z88.6 Allergy status to analgesic agent; Z79.891 Long term (current) use of opiate analgesic; Z68.26 Body mass index [BMI] 26.0-26.9, adult
CPT/HCPCS: 81025; 43249; J2250; J2001; J2704; C1726

== ENCOUNTER → 2020-02-21 | Outpatient (CLI) | payer OTHER ==
--- NOTE | 2020-02-24 13:44 | CT ---
EXAMINATION TYPE: CT ChestAbdPelvis w con DATE OF EXAM: 02/21/2020 COMPARISON: CT chest abdomen pelvis 12/31/2018. HISTORY: Abdominal neoplasm. Status post Dariana-en-Y gastric bypass. 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 CT DLP: 1572 mGycm Automated exposure control for dose reduction was used. CONTRAST: CT scan of the chest, abdomen and pelvis is performed with Oral Contrast and with IV Contrast, patien t injected with 100 mL of Isovue 300. FINDINGS: LUNGS: Redemonstrated groundglass opacities and interstitial coarsening of the mid and lower lungs. N o concerning parenchymal mass or nodule identified. No pleural effusion. No pneumothorax. The tracheo bronchial tree is patent. MEDIASTINUM/SOFT TISSUES: No axillary, hilar, or mediastinal lymphadenopathy greater than 1 cm. Cardi ac size is normal. No pericardial effusion. No thoracic aortic aneurysm. LIVER: Normal. BILIARY SYSTEM: Status post cholecystectomy. No intrahepatic or extrahepatic biliary ductal dilatatio n. PANCREAS: No main pancreatic ductal dilatation. There is a 6 mm hypodense focus within the pancreatic distal body superior aspect (3:62, 5:31, 6:48) which may represent fat between the adjacent splenic vein and superior aspect of the pancreas, although with Hounsfield units of 48. SPLEEN: Normal. ADRENALS: Normal. KIDNEYS: Normal. BOWEL: Status post Dariana-en-Y gastric bypass. No bowel obstruction or thickening. PERITONEUM: Normal. LYMPH NODES: No lymphadenopathy. PELVIS: Underdistended urinary bladder. Normal uterus and ovaries. VASCULATURE: No abdominal aortic aneurysm. MUSCULOSKELETAL: No aggressive osseous destructive lesions. IMPRESSION: 1. No evidence of recurrent or metastatic abdominal adenocarcinoma of the chest, abdomen, or pelvis. 2. 6 mm hypodense focus at the superior aspect of pancreatic body. Findings may represent volume ave raging of fat coursing between the splenic vein and the pancreas versus pancreatic cystic lesion. Sarah earance is not significantly changed and can be observed on follow-up CT imaging for stability.
== END | disposition home or self-care (01) ==
LOC: RADCTMAIN 09:37
PROVIDERS: ATTEND Internal Medicine Hematology & Oncology
DX: C76.2 Malignant neoplasm of abdomen (principal)
CPT/HCPCS: 71260; 74177; Q9967

== ENCOUNTER → 2020-12-23 | Outpatient (CLI) | payer OTHER ==
--- NOTE | 2020-12-23 16:05 | XR ---
Right knee HISTORY: Pain, M 25.561 3 views the right knee Bone mineralization is reduced. Joint spaces and alignment are maintained. No fracture or dislocation . Suprapatellar increased density is consistent with joint effusion. There is some spurring at the pa tellofemoral joint, small ossific density posterior to the patella may represent a loose body measuri ng approximately 5 mm. There is some marginal spurring medial compartment. IMPRESSION: Osteoarthritis, consider synovial chondromatosis, loose body. Joint effusion.
== END | disposition home or self-care (01) ==
LOC: RADXRMAIN 14:26
PROVIDERS: ATTEND Family Medicine
DX: M17.11 Unilateral primary osteoarthritis, right knee (principal)

== ENCOUNTER 2021-01-14 15:09 | Emergency (ER) | payer OTHER ==
[2021-01-14 15:21] VITALS: BP 107/7; PULSE 92; TEMP 98.1
[2021-01-14] MEDS ORDERED: KETOROLAC 15 MG/ML 1 ML VIAL IM STA (15:44)
--- NOTE | 2021-01-14 16:33 | XR ---
Lumbar spine HISTORY: Back pain 3views of the lumbar spine, 4 images Lumbar vertebral bodies show preserved height and bone mineralization. There is a gentle spinal curva ture. Surgical clips are present right upper quadrant. Some mild loss of disc height at intervertebra l levels L3-4, L4-5. Sclerosis present in the posterior elements of the lower lumbar spine. IMPRESSION: Degenerative disc disease, facet arthropathy, slight spinal curvature.
--- NOTE | 2021-01-14 16:54 | ED ---
Back Pain HPI - General Chief Complaint: Back Pain/Injury Stated Complaint: Back pain Time Seen by Provider: 01/14/21 15:30 Source: patient, RN notes reviewed Limitations: no limitations - History of Present Illness Initial Comments: Patient is a 45-year-old female that presents to the emergency room complaining of lower back pain with radiation down her left leg. She notes that she does have a history of low back issues and history of sciatica with radicular symptoms. She notes that it usually comes and goes and episodes. She notes that she woke up this morning with significant pain and was unable to get in with her doctor so she came to the emergency room for symptom control. She notes she does have a follow-up scheduled with the pain was too much today. She notes the pain was a 10 out of 10 with no relief. She denied any saddle anesthesia, bladder or bowel incontinence chest pain shortness breath headache nausea vomiting diarrhea constipation fever fatigue chills. - Related Data Home Medications Medication Instructions Recorded Confirmed Butalb/APAP/Caff 50-325-40Mg 1 tab PO Q6H PRN 05/29/18 01/14/21 [Fioricet 50-325-40] Zinc 50 mg PO BID 08/14/19 01/14/21 Acetaminophen [Tylenol Arthritis] 1,300 mg PO Q8H PRN 01/14/21 01/14/21 Cholecalciferol (Vitamin D3) 125 mcg PO BID 01/14/21 01/14/21 [Vitamin D3 (5000 Iu)] Slow Release Iron(Unknown Dose) 1 cap PO DAILY 01/14/21 01/14/21 Previous Rx's Medication Instructions Recorded predniSONE 50 mg PO DAILY #5 tab 01/14/21 Allergies Allergy/AdvReac Type Severity Reaction Status Date / Time meperidine HCl [From Demerol] Allergy Severe "BECAME Verified 01/14/21 16:27 BELIGERENT" Milk Containing Products Allergy Severe Nausea & Verified 01/14/21 16:27 [Dairy] Vomiting & Diarrhea guaifenesin [From Robitussin] Allergy Mild WHEEZING Verified 01/14/21 16:27 FROM COUGH SYRUP WITH CODEINE codeine Allergy Unknown Wheezing Verified 01/14/21 16:27 Iodinated Contrast Media Allergy Itching Verified 01/14/21 16:27 [Iodinated Contrast- Oral and IV Dye] propoxyphene Allergy Rash/Hives Verified 01/14/21 16:27 [From Darvocet-N] zonisamide [From Zonegran] Allergy Anaphylaxis Verified 01/14/21 16:27 aspirin AdvReac "MAKES Verified 01/14/21 16:27 BLOOD TOO THIN" NSAIDS (Non-Steroidal AdvReac DOES NOT Verified 01/14/21 16:27 Anti-Inflamma USE R/T BARIATRIC SX Review of Systems ROS Statement: Those systems with pertinent positive or pertinent negative responses have been documented in the HPI. ROS Other: All systems not noted in ROS Statement are negative. Past Medical History Past Medical History: Cancer, GERD/Reflux, Musculoskeletal Disorder, Rheumatoid Arthritis (RA) Additional Past Medical History / Comment(s): states "thickness to wall of colon on CT scan",Hx of CA in Abd wall/surgery;migraines, bilateral neuropathy(legs and hands)- legs can give out causing falls, hx IBS, hx swine flu 2008-was INTUBATED, varicose veins, DDD History of Any Multi-Drug Resistant Organisms: MRSA Date of last positivie culture/infection: 06/2009 MDRO Source:: LUNGS Past Surgical History: Appendectomy, Bariatric Surgery, Section, Cholecystectomy, Hernia Repair, Tubal Ligation, Uterine Ablation Additional Past Surgical History / Comment(s): Laparoscopic misty-en-y gastric bypass with EGD. PEG tube/later removed, Tracheostomy 2008 when she had the swine flu. Panniculectomy 07/25/16, 3 ABDOMINAL hernias removed,c sections x2 CANCER REMOVED FROM ABD. WALL, COLONOSCOPY Past Anesthesia/Blood Transfusion Reactions: Motion Sickness, Postoperative Nausea & Vomiting (PONV) Additional Past Anesthesia/Blood Transfusion Reaction / Comment(s): Pt states she has never received blood. Past Psychological History: Anxiety, Bipolar, Depression, PTSD Past Alcohol Use History: None Reported Past Drug Use History: None Reported - Past Family History Mother Family Medical History: Asthma, Congestive Heart Failure (CHF), COPD, Diabetes Mellitus, GERD/Reflux, Hypertension, Pneumonia, Sleep Apnea/CPAP/BIPAP Additional Family Medical History / Comment(s): varicose veins, enlarged heart,MS Father Family Medical History: Cancer Additional Family Medical History / Comment(s): colon General Exam Limitations: no limitations General appearance: alert, in no apparent distress Head exam: Present: atraumatic, normocephalic, normal inspection Eye exam: Present: normal appearance, PERRL, EOMI. Absent: scleral icterus, conjunctival injection, periorbital swelling Neck exam: Present: normal inspection Respiratory exam: Present: normal lung sounds bilaterally. Absent: respiratory distress, wheezes, rales, rhonchi, stridor Cardiovascular Exam: Present: regular rate, normal rhythm, normal heart sounds. Absent: systolic murmur, diastolic murmur, rubs, gallop, clicks Extremities exam: Present: normal inspection, full ROM, normal capillary refill. Absent: tenderness, pedal edema, joint swelling, calf tenderness Back exam: Present: normal inspection, tenderness (Over the left SI) Neurological exam: Present: alert, oriented X3 Psychiatric exam: Present: normal affect, normal mood Skin exam: Present: warm, dry, intact, normal color. Absent: rash Course Vital Signs 01/14/21 15:19 Temperature 98.1 F Pulse Rate 92 Respiratory 16 Rate Blood Pressure 107/7 O2 Sat by Pulse 100 Oximetry Medical Decision Making - Medical Decision Making 45-year-old female complaining of lower back pain with radiation down the left leg. Patient does have history of sciatica and lumbar issues. X-ray of the lumbar spine, 15 mg of Toradol ordered. X-ray imaging negative for any acute fractures dislocations. Case discussed with Dr. Ruby, patient can discharge home with follow-up to specialist as planned. - Radiology Data Radiology results: report reviewed, image reviewed Lumbar x-ray: Degenerative disc disease, facet arthropathy, slight spinal curvature. Disposition Clinical Impression: Strain of lumbar region, Sciatica Disposition: HOME SELF-CARE Condition: Stable Instructions (If sedation given, give patient instructions): Acute Low Back Pain (ED) Additional Instructions: Please return to the Emergency Department if symptoms worsen or any other concerns. Follow-up with specialists as planned. Take steroids as prescribed. Avoid any unnecessary activity or strenuous movements. Is patient prescribed a controlled substance at d/c from ED?: No Referrals: Taj Davis Jr, DO [Primary Care Provider] - 1-2 days Time of Disposition: 16:56
[2021-01-14 17:14] VITALS: RESP 22
== END 2021-01-14 17:15 | disposition home or self-care (01) ==
LOC: EC 15:09
DX: S39.012A Strain of muscle, fascia and tendon of lower back, initial encounter (principal); M54.42 Lumbago with sciatica, left side; K21.9 Gastro-esophageal reflux disease without esophagitis; M06.9 Rheumatoid arthritis, unspecified; G43.909 Migraine, unspecified, not intractable, without status migrainosus; F31.9 Bipolar disorder, unspecified; F41.9 Anxiety disorder, unspecified; Z79.52 Long term (current) use of systemic steroids; Z88.6 Allergy status to analgesic agent; Z88.8 Allergy status to other drugs, medicaments and biological substances; Z98.84 Bariatric surgery status; Z88.2 Allergy status to sulfonamides; Z88.5 Allergy status to narcotic agent; X58.XXXA Exposure to other specified factors, initial encounter
CPT/HCPCS: 72100; 99283; 96372; J1885

== ENCOUNTER → 2021-01-14 | Outpatient (CLI) | payer OTHER ==
--- NOTE | 2021-01-18 14:40 | MM ---
Reason for exam: screening (asymptomatic). Last mammogram was performed 2 years and 4 months ago. History: Patient has history of other cancer at age 42. Physical Findings: A clinical breast exam by your physician is recommended on an annual basis and results should be correlated with mammographic findings. MG Screening Mammo w CAD Bilateral CC and MLO view(s) were taken. XCCL view(s) were taken of the right breast. Prior study comparison: September 13, 2018, bilateral MG screening mammo w CAD. September 01, 2017, bilateral MG screening mammo w CAD. There are scattered fibroglandular densities. Benign calcifications. No significant changes when compared with prior studies. ASSESSMENT: Benign, BI-RAD 2 RECOMMENDATION: Routine screening mammogram of both breasts in 1 year.
== END | disposition home or self-care (01) ==
LOC: RADMAMWWP 14:46
PROVIDERS: ATTEND Family Medicine
DX: Z12.31 Encounter for screening mammogram for malignant neoplasm of breast (principal); Z85.9 Personal history of malignant neoplasm, unspecified
CPT/HCPCS: 77067

== ENCOUNTER → 2021-02-03 | Outpatient (CLI) | payer OTHER ==
--- NOTE | 2021-02-04 04:52 | MR ---
EXAMINATION TYPE: MR knee RT wo con DATE OF EXAM: 02/03/2021 COMPARISON: None HISTORY: RT knee pain progressively getting worse, fall x 2 years ago Multiplanar multiecho imaging of the right knee with no contrast. There is a moderate knee joint effusion. The anterior and posterior cruciate ligaments are intact. Me dial and lateral menisci appear intact. The collateral ligaments are intact. There is no evidence of a fracture. I see no bony destructive process. Joint spaces are fairly normal. The patella appears in tact. IMPRESSION: Moderate knee joint effusion. No evidence of ligament or meniscus tear. This could relate to synoviti s. No significant joint space narrowing.
== END | disposition home or self-care (01) ==
LOC: RADMRIMAIN 11:07
PROVIDERS: ATTEND Orthopaedic Surgery
DX: M25.461 Effusion, right knee (principal)

== ENCOUNTER → 2021-03-01 | Outpatient (CLI) | payer OTHER ==
--- NOTE | 2021-03-01 12:57 | CT ---
EXAMINATION TYPE: CT abdomen pelvis wo con DATE OF EXAM: 03/01/2021 COMPARISON: 02/21/2020 and 12/31/2018. HISTORY: 45-year-old female C76.2, Abdominal neoplasm CT DLP: 284.3 mGycm. Automated exposure control for dose reduction was used. TECHNIQUE: Contiguous axial scanning of the abdomen and pelvis without IV contrast. Coronal and sagit chelo reconstructions performed. FINDINGS: Heart normal size without pericardial effusion. Focal groundglass and some reticular change at the left base unchanged back to at least 2019 suggesti ng chronic scarring. No pleural effusion. Lack of IV contrast limits assessment of the solid abdominal viscera, lymph nodes, vascular structure s. Noncontrast appearance of the liver, gallbladder, adrenal glands, left kidney with small extrarenal p rem[place], spleen, and pancreas show no gross abnormality. Punctate 2 mm nonobstructive right renal calcu dennise, coronal image 42. Postsurgical changes of Dariana-en-Y gastric bypass. No dilated small bowel, free fluid, or free air. Allowing for noncontrast technique and paucity of intra-abdominal fat, no mesenteric or retroperitone al lymphadenopathy is identified. There is moderate wall thickening along the cecum and ascending colon and mild to moderate thickening along the transverse colon. Some of these segments of colon are collapsed and the thickening may in part relate to underdistention. Oral contrast has progressed faintly into the rectum. No pericolonic inflammatory change seen. Bladder is urine distended. Numerous pelvic phleboliths. Uterus anteverted. Ovaries are difficult to delineate from adjacent bowel loops and nonopacified vasculature. No abnormal fluid collection in the pelvis. Bones: Mild degenerative change at the hips. IMPRESSION: 1. Note that IV contrast was not administered. This limits assessment of the soft tissue and vascula r structures. 2. Allowing for this limitation, no definite suspicious mass is identified. 3. However, there is abnormal moderate fold thickening along the right side of the colon and mild to moderate along the transverse colon. This may in part relate to underdistention. Correlate clinicall y for nonspecific colitis. Correlate with fecal occult blood test and direct visualization if indicat ed. 4. Punctate 2 mm nonobstructive right renal calculus. Status post Dariana-en-Y gastric bypass.
== END | disposition home or self-care (01) ==
LOC: RADCTMAIN 10:40
PROVIDERS: ATTEND Internal Medicine Hematology & Oncology
DX: C76.0 Malignant neoplasm of head, face and neck (principal); N20.0 Calculus of kidney; Z98.84 Bariatric surgery status
CPT/HCPCS: 74176

== ENCOUNTER → 2021-03-24 | Outpatient (CLI) | payer OTHER ==
[2021-03-24 12:32] LABS: Potassium 4.4 mmol/L (3.5-5.1)
[2021-03-24 12:47] LABS: Basophils % (A) 1 %; Eosinophils # (A) 0.1 k/uL (0-0.7); Eosinophils % (A) 5 %; HCT 37.6 % (34.0-46.0); HGB 12.4 gm/dL (11.4-16.0); Lymphocytes # (A) 0.8 k/uL (1.0-4.8); Lymphocytes % (A) 40 %; MCH 33.5 pg (25.0-35.0); MCV 101.3 fL (80.0-100.0); Mean Platelet Volume 9.2; Monocytes # (A) 0.1 k/uL (0-1.0); Monocytes % (A) 6 %; Neutrophils % (A) 48 %; Platelet Count 139 k/uL (150-450); RBC 3.71 m/uL (3.80-5.40); RDW 12.8 % (11.5-15.5)
== END | disposition home or self-care (01) ==
LOC: LABPAT 10:40
PROVIDERS: ATTEND Orthopaedic Surgery
DX: Z01.812 Encounter for preprocedural laboratory examination (principal); M23.91 Unspecified internal derangement of right knee
CPT/HCPCS: 36415; 80051; 85025

== ENCOUNTER 2021-04-16 07:30 | Day surgery (SDC) | payer OTHER ==
[2021-04-14 15:46] VITALS: BMI 21.6
--- NOTE | 2021-04-15 17:34 | HP ---
HISTORY AND PHYSICAL CHIEF COMPLAINT: Right knee pain. HISTORY OF PRESENT ILLNESS: The patient is a 45-year-old female who present with right knee pain after a previous injury that has persisted for the several months. She notes anteromedial pain that increases with walking. She has buckling and giving way. She has a difficult time with stairs. She had a previous injection, with one week's worth of relief. She has had extensive therapy without much relief. She has also taken medications without much relief. She is unable to take anti-inflammatories secondary to previous gastric bypass surgery. PAST MEDICAL HISTORY: Significant for adenocarcinoma and chronic low back pain. PAST SURGICAL HISTORY: Significant for gastric bypass, hernia repair, cholecystectomy, appendectomy and C- section. FAMILY HISTORY: Significant for heart disease and cancer. SOCIAL HISTORY: Negative for current alcohol use; however, she admits to previous tobacco use. REVIEW OF SYSTEMS: Sixteen-point review of systems is otherwise reviewed and noncontributory. PHYSICAL EXAMINATION: On examination, the patient is approximately 5 feet 6 inches, 138 pounds of mesomorphic habitus. HEENT exam is nonfocal. Neck is supple. She has painless passive motion of the right hip. Straight-leg raise is negative. Active motion of right knee minus 6 to 140 degrees of flexion. She has a moderate effusion. She is tender about the medial joint line. Collaterals are stable. Ashlie's negative. Darlyn's elicits medial pain. She has an antalgic gait pattern. Her distal neurovascular exam appears intact in the right lower extremity. MRI report of right knee shows evidence of a chondral injury involving medial femoral condyle along with synovitis and a large effusion. IMPRESSION: 1. Right knee internal derangement/medial femoral condyle chondral injury. 2. Synovitis/effusion, right knee. RECOMMENDATIONS: I talked to the patient at length regarding her condition along with treatment options. At this point she is quite symptomatic, having pain and mechanical symptoms after previous conservative measures. After thorough discussion she opted to proceed with surgery. We will plan to proceed with arthroscopic evaluation with possible medial chondral chondrectomy along with synovectomy. The risks and benefits were discussed at length in layman's terms. MMODL / IJN: [id number] / ILENE
[~2021-04-16 07:30] MED LIST changes: +DEXAMETHASONE SOD PHOSPHATE 4 MG/ML 1 ML VIAL IV ONE; -LIDOCAINE 1% (10MG/ML) FOR IV START INTRADERMA PRN; +MIDAZOLAM 2 MG/2 ML VIAL IV PRN; +ONDANSETRON 4 MG/2 ML VIAL IVP ONE; +SCOPOLAMINE 1.5MG/72HR PATCH TRANSDERM ONE
[2021-04-16 08:11] VITALS: RESP 16
[2021-04-16] MEDS ORDERED: LIDOCAINE 1% (10MG/ML) FOR IV START INTRADERMA ONE (08:24)
[2021-04-16] MEDS: LACTATED RINGERS 1,000 ML IV SCH ×2 (08:25→08:56)
[2021-04-16 08:43] LABS: HCT 37.9 % (34.0-46.0); HGB 12.4 gm/dL (11.4-16.0); MCH 32.6 pg (25.0-35.0); MCHC 32.8 g/dL (31.0-37.0); MCV 99.2 fL (80.0-100.0); Mean Platelet Volume 8.3; Platelet Count 177 k/uL (150-450); RBC 3.82 m/uL (3.80-5.40); RDW 12.8 % (11.5-15.5); WBC 2.4 k/uL (3.8-10.6)
[2021-04-16] MEDS ORDERED: LIDOCAINE 1% INJ 10MG/ML (20 ML MDV) ONE (08:53)
[2021-04-16] MEDS ORDERED: PROPOFOL 10 MG/ML 20 ML VIAL IV ONE (08:53)
[2021-04-16] MEDS ORDERED: fentaNYL (PF) 50 MCG/ML 2 ML AMP ONE (08:53)
[2021-04-16] MEDS ORDERED: ePHEDrine SULFATE/0.9% NACL/PF 50 MG/5 ML SYRINGE IV ONE (08:53)
[2021-04-16] MEDS ORDERED: EPINEPHrine (PF) 1 ML in SODIUM CHLORIDE 0.9% IRRIGATIO 3,000 ML IRRIGATION ONE ×4 (08:58)
--- NOTE | 2021-04-16 09:39 | P.OP ---
Date of Procedure: 04/16/21 Preoperative Diagnosis: Right knee internal derangement Postoperative Diagnosis: Right knee grade 3/4 chondral injury distal posterior medial femoral condyle, reactive synovitis of the medial, lateral, and patellofemoral compartments. Procedure(s) Performed: Right knee arthroscopic medial femoral chondrectomy/microfracture medial femoral condyle/partial synovectomy of the medial, lateral, and patellofemoral compartments. Anesthesia: GETA Surgeon: Saul Weeks Estimated Blood Loss (ml): 10 Pathology: none sent Condition: stable Disposition: PACU Indications for Procedure: The patient's a 45-year-old female presents with progressive right knee pain and mechanical symptoms despite conservative measures. A discussion of the risks and benefits of operative intervention versus continued conservative measures was made with patient. She opted to proceed with surgery. Operative risks to include infection, neurovascular injury, development of blood clots, possible incomplete resolution of symptoms, possible worsening symptoms and need for subsequent procedures was discussed. Informed consent was obtained. Operative Findings: As below Description of Procedure: The patient was brought to the operating room, and after induction of general anesthesia examined the right knee. Collaterals were stable, Ashlie was negative, and posterior drawer was negative. The right lower extremity was prepped and draped in a normal fashion. A superior lateral portal was made through a 3 mm skin incision superior and lateral to the patella. This was used for outflow. A lateral portal was made through a 5 mm vertical skin incision lateral to the patella tendon above the joint line. Diagnostic arthroscopy was performed. On inspection of the medial compartment, the medial meniscus was stable and intact. A grade 3/4 chondral injury was noted involving the posterior distal medial femoral condyle measuring 12 x 8 mm. There was a loose chondral flaps debrided back to stable base with a motorized shaver. Microfr acture was performed with a power pick breaching the subchondral surface down to the bone marrow elements. Reactive synovitis involving the anterior medial compartment was debrided with a motorized shaver. On inspection of the notch, the anterior cruciate ligament appeared to be intact. On inspection of the lateral compartment, no definite meniscal pathology was noted. Reactive synovitis found anterolateral compartment was debrided with a motorized shaver.. On inspection of the patellofemoral articulation, grade 2-3 chondral changes were noted diffusely. Again reactive synovitis was debrided with a motorized shaver.. The gutters were clear debris. The knee was then thoroughly irrigated. The portals were closed with Steri-Strips. A sterile dressing was applied in addition to a compression stocking. The patient was awoken from general anesthesia and transferred to recovery room in good condition. Blood loss was estimated at 10 mL. No complications were incurred.
[2021-04-16] MEDS ORDERED: diphenhydrAMINE 50 MG/ML 1 ML VIAL ONE (09:42)
[2021-04-16] MEDS: HYDROmorphone 0.5 MG/0.5 ML SYRINGE IVP PRN ×4 (09:45→10:14)
[2021-04-16] MEDS ORDERED: diphenhydrAMINE 50 MG/ML 1 ML VIAL IVP ONE (09:45)
[2021-04-16 09:47] VITALS: TEMP 97.2
[2021-04-16 09:50] LABS: Nucleated Red Blood Cells 0 /100 WBC (0-0)
[2021-04-16 09:54] LABS: Eosinophils # (M) 0.14 k/uL (0-0.7); Lymphocytes # (M) 1.22 k/uL (1.0-4.8); Monocytes # (M) 0.17 k/uL (0-1.0); Neutrophils # (M) 0.89 k/uL (1.3-7.7); Neutrophils % (M) 37 %; Total Cells Counted 200
[2021-04-16] MEDS ORDERED: HYDROcodone/APAP 5-325MG 1 EACH TAB ONE (11:02)
[2021-04-16] MEDS ORDERED: HYDROcodone/APAP 5-325MG 1 EACH TAB PO ONE (11:05)
[2021-04-16 11:15] VITALS: BP 114/78; PULSE 67
== END 2021-04-16 11:56 | disposition home or self-care (01) ==
LOC: OR 07:30
PROVIDERS: ATTEND Orthopaedic Surgery
DX: M23.91 Unspecified internal derangement of right knee (principal); M65.861 Other synovitis and tenosynovitis, right lower leg; G89.29 Other chronic pain; M54.5 Low back pain; Z98.84 Bariatric surgery status; Z90.49 Acquired absence of other specified parts of digestive tract; G62.9 Polyneuropathy, unspecified; Z98.890 Other specified postprocedural states; Z98.891 History of uterine scar from previous surgery; Z87.891 Personal history of nicotine dependence; M06.9 Rheumatoid arthritis, unspecified; K21.9 Gastro-esophageal reflux disease without esophagitis; Z82.49 Family history of ischemic heart disease and other diseases of the circulatory system; Z80.9 Family history of malignant neoplasm, unspecified; Z88.6 Allergy status to analgesic agent; Z88.5 Allergy status to narcotic agent; Z88.8 Allergy status to other drugs, medicaments and biological substances
CPT/HCPCS: 81025; 85025; 29879; 29876; J2250; J1200; J1100; J2405; J0171; J2001; J3010; J2704; J1170

== ENCOUNTER → 2023-11-22 | Outpatient (CLI) | payer MEDICARE, OTHER ==
[2023-11-22 17:01] VITALS: BP 137/89; PULSE 103; RESP 14; TEMP 98.1; BMI 23.1
--- NOTE | 2023-11-22 17:37 | P.HPBAR ---
Bariatric H&P - History & Physicial H&P Date: 11/22/23 History & Physicial: Visit/CC: abdomen pain Patient initial contact: Initial weight: 111.64 kg Initial weight in pounds: 246.12 Height: 5 ft 6 in Initial BMI: 39.7 Last weight: Current weight: 64.864 kg Current weight in pounds: 143.00 Current BMI: 23.1 [place] body weight (based on NIH guidelines): 58.967 kg Excess body weight loss: 88.8% The patient is a 48 year-old F who presents for Bariatric Assessment. SHe has gastric bypass. Has new epigastric pain. History of scar tissue. She has low blood sugar due to not eating fro abdominal pain. Recommend dx lap for history of abdominal tumor and peritoneal adhesions. Labs, EKG Past Medical History Past Medical History: Cancer, GERD/Reflux, Musculoskeletal Disorder, Rheumatoid Arthritis (RA) Additional Past Medical History / Comment(s): states "thickness to wall of colon on CT scan",Hx of CA in Abd wall 2018/surgery;migraines, bilateral neuropathy(legs and hands)- legs can give out causing falls, hx IBS, hx swine flu 2008-was INTUBATED, varicose veins, DDD History of Any Multi-Drug Resistant Organisms: MRSA Year Discovered:: 06/2009 MDRO Source:: LUNGS Past Surgical History: Appendectomy, Bariatric Surgery, Section, Cholecystectomy, Hernia Repair, Tubal Ligation, Uterine Ablation Additional Past Surgical History / Comment(s): Laparoscopic misty-en-y gastric bypass with EGD. PEG tube/later removed, Tracheostomy 2008 when she had the swine flu. Panniculectomy 07/25/16, 3 ABDOMINAL hernias removed,c sections x2 CANCER REMOVED FROM ABD. WALL, COLONOSCOPY Past Anesthesia/Blood Transfusion Reactions: Motion Sickness, Postoperative Nausea & Vomiting (PONV) Additional Past Anesthesia/Blood Transfusion Reaction / Comm: Pt states she has never received blood. Past Psychological History: Anxiety, Bipolar, Depression, PTSD Additional Psychological History / Comment(s): . Smoking Status: Former smoker, Second hand smoke exposure Past Alcohol Use History: None Reported Additional Past Alcohol Use History / Comment(s): Pt started smoking in 1997 and quit in 2014-she was 1 ppd smoker. Past Drug Use History: None Reported - Past Family History Mother Family Medical History: Asthma, Congestive Heart Failure (CHF), COPD, Diabetes Mellitus, GERD/Reflux, Hypertension, Pneumonia, Sleep Apnea/CPAP/BIPAP Additional Family Medical History / Comment(s): varicose veins, enlarged heart,MS Father Family Medical History: Cancer Additional Family Medical History / Comment(s): colon Surgical - Exam Vital Signs Temp Pulse Resp BP 98.1 F 103 H 14 137/89 11/22/23 16:34 11/22/23 16:34 11/22/23 16:34 11/22/23 16:34 Bariatric Checklist Checklist: Plan: Checklist: EGD: 1. Hiatal hernia: 2. H. Pylori: HgbA1c: Vitamin D: Smoking: Former smoker Primary care physician referral: [facility] Psychiatry clearance: Cardiology clearance: Sleep study: Diet journal: VTE risk score: VTE risk level: Rehab needs at discharge:
== END ==
LOC: BARWHC3 16:27
PROVIDERS: ATTEND Surgery Plastic and Reconstructive Surgery
DX: E66.01 Morbid (severe) obesity due to excess calories (principal); R10.13 Epigastric pain; E16.2 Hypoglycemia, unspecified; R10.9 Unspecified abdominal pain; K66.0 Peritoneal adhesions (postprocedural) (postinfection); Z98.84 Bariatric surgery status; Z90.3 Acquired absence of stomach [part of]; Z77.22 Contact with and (suspected) exposure to environmental tobacco smoke (acute) (chronic); Z88.8 Allergy status to other drugs, medicaments and biological substances; Z91.011 Allergy to milk products; Z88.5 Allergy status to narcotic agent; Z88.6 Allergy status to analgesic agent; Z91.041 Radiographic dye allergy status; Z68.23 Body mass index [BMI] 23.0-23.9, adult
CPT/HCPCS: 99211

== ENCOUNTER → 2023-11-28 | Outpatient (CLI) | payer OTHER ==
[2023-11-28 16:35] LABS: INR 1.1 (<1.2); Partial Thromboplastin Time 22.6 sec (22.0-30.0); Prothrombin Time 11.6 sec (10.0-12.5)
[2023-11-29 05:36] LABS: HCT 34.9 % (37.2-46.3); HGB 10.5 g/dL (12.0-15.0); MCH 25.3 pg (27.0-32.0); MCHC 30.1 g/dL (32.0-37.0); MCV 84.1 FL (80.0-97.0); Mean Platelet Volume 12.2 FL (9.5-12.2); NRBC Per 100 WBC 0 X 10*3/uL (0.00-0.01); Platelet Count 215 X 10*3/uL (140-440); RBC 4.15 X 10*6/uL (4.10-5.20); WBC 5.02 X 10*3/uL (4.50-10.00)
[2023-11-29 06:36] LABS: Prealbumin 15.3 mg/dL (18.0-42.0)
[2023-11-29 06:56] LABS: ALT 17 U/L (8-44); AST 27 U/L (13-35); Albumin 4.5 g/dL (3.8-4.9); Albumin/Globulin Ratio 2.37 Ratio (1.60-3.17); Alkaline Phosphatase 113 U/L (41-126); BUN/Creat Ratio 25.25 Ratio (12.00-20.00); Blood Urea Nitrogen 20.2 mg/dL (9.0-27.0); Carbon Dioxide 25.3 mmol/L (21.6-31.8); Chloride 105 mmol/L (96-109); Chol/HDL Ratio 2.03 Ratio; Ferritin 10.6 ng/mL (10.0-291.0); Globulin 1.9 g/dL (1.6-3.3); Glucose 111 mg/dL (70-110); Iron 21 UG/DL (50-170); LDL Cholesterol,Calculated 65.2 mg/dL (0.0-131.0); Phosphorus 3.7 mg/dL (2.4-5.1); Potassium 3.9 mmol/L (3.5-5.5); Sodium 140 mmol/L (135-145); Total Bilirubin <0.2 mg/dL (0.3-1.2); Total Iron Binding Capacity 477 UG/DL (228-460); Total Protein 6.4 g/dL (6.2-8.2); VLDL Calculation 7.98 mg/dL (5.00-40.00)
[2023-11-29 15:31] LABS: Zinc, Serum 69 ug/dL (60-130)
[2023-11-30 06:37] LABS: Vitamin A 22 ug/dL (38-106)
== END | disposition home or self-care (01) ==
LOC: LABWHC1 15:49
PROVIDERS: ATTEND Surgery Plastic and Reconstructive Surgery
DX: E66.01 Morbid (severe) obesity due to excess calories (principal); D50.8 Other iron deficiency anemias; K91.2 Postsurgical malabsorption, not elsewhere classified; E44.0 Moderate protein-calorie malnutrition; E45 Retarded development following protein-calorie malnutrition; K74.1 Hepatic sclerosis; N19 Unspecified kidney failure; T56.894A Toxic effect of other metals, undetermined, initial encounter; K50.90 Crohn's disease, unspecified, without complications; E89.1 Postprocedural hypoinsulinemia; E55.9 Vitamin D deficiency, unspecified
CPT/HCPCS: 36415; 80053; 80061; 82306; 82525; 82607; 82728; 82746; 83036; 83540; 83550; 83735; 83970; 84100; 84134; 84255; 84425; 84443; 84590; 84630; 85027; 85610; 85730; 93005

== ENCOUNTER → 2024-01-15 | Outpatient (CLI) | payer OTHER ==
[2024-01-15 16:42] LABS: INR 1.1 (<1.2); Prothrombin Time 11.5 sec (10.0-12.5)
[2024-01-15 21:01] LABS: HCT 38.4 % (37.2-46.3); HGB 11.7 g/dL (12.0-15.0); MCHC 30.5 g/dL (32.0-37.0); MCV 88.7 FL (80.0-97.0); Mean Platelet Volume 11.9 FL (9.5-12.2); NRBC Per 100 WBC 0 X 10*3/uL (0.00-0.01); Platelet Count 162 X 10*3/uL (140-440); RBC 4.33 X 10*6/uL (4.10-5.20); RDW 17.5 % (11.5-14.5); WBC 4.87 X 10*3/uL (4.50-10.00)
[2024-01-15 22:46] LABS: % Iron Saturation 15.53 (12.00-45.00); Chol/HDL Ratio 2.02 Ratio; Iron 64 UG/DL (50-170); LDL Cholesterol,Calculated 71.9 mg/dL (0.0-131.0); Total Iron Binding Capacity 412 UG/DL (228-460); VLDL Calculation 13.82 mg/dL (5.00-40.00)
[2024-01-15 22:50] LABS: Prealbumin 19.9 mg/dL (18.0-42.0)
[2024-01-16 00:17] LABS: Phosphorus 3.6 mg/dL (2.4-5.1)
[2024-01-16 00:19] LABS: ALT 20 U/L (8-44); AST 29 U/L (13-35); Albumin 4.5 g/dL (3.8-4.9); Albumin/Globulin Ratio 2.65 Ratio (1.60-3.17); Alkaline Phosphatase 96 U/L (41-126); BUN/Creat Ratio 16.86 Ratio (12.00-20.00); Blood Urea Nitrogen 11.8 mg/dL (9.0-27.0); Calcium 9.4 mg/dL (8.7-10.3); Carbon Dioxide 23.4 mmol/L (21.6-31.8); Chloride 106 mmol/L (96-109); Globulin 1.7 g/dL (1.6-3.3); Glucose 93 mg/dL (70-110); Potassium 3.7 mmol/L (3.5-5.5); Sodium 142 mmol/L (135-145); Total Bilirubin 0.2 mg/dL (0.3-1.2); Total Protein 6.2 g/dL (6.2-8.2)
[2024-01-16 11:33] LABS: Zinc, Serum 69 ug/dL (60-130)
[2024-01-17 06:25] LABS: Vitamin A 34 ug/dL (38-106)
== END | disposition home or self-care (01) ==
LOC: LABWHC1 15:46
PROVIDERS: ATTEND Surgery Plastic and Reconstructive Surgery
DX: E66.01 Morbid (severe) obesity due to excess calories (principal); D50.8 Other iron deficiency anemias; K91.2 Postsurgical malabsorption, not elsewhere classified; E44.0 Moderate protein-calorie malnutrition; E44.1 Mild protein-calorie malnutrition; E45 Retarded development following protein-calorie malnutrition; E55.9 Vitamin D deficiency, unspecified; K74.1 Hepatic sclerosis; N19 Unspecified kidney failure; T56.894A Toxic effect of other metals, undetermined, initial encounter; K50.90 Crohn's disease, unspecified, without complications
CPT/HCPCS: 36415; 80053; 80061; 82306; 82525; 82607; 82728; 82746; 83036; 83540; 83550; 83735; 83970; 84100; 84134; 84255; 84425; 84443; 84590; 84630; 85027; 85610; 85730

== ENCOUNTER 2024-02-05 12:24 | Day surgery (SDC) | payer OTHER ==
--- NOTE | 2024-02-05 07:44 | P.GSHP ---
History of Present Illness H&P Date: 02/05/24 CHIEF COMPLAINT: History of intra-abdominal adhesions HISTORY OF PRESENT ILLNESS: The patient is a 48-year-old female who presents with history of intra-abdominal adhesions from multiple prior surgeries including increasing abdominal pain. She now presents for diagnostic laparoscopy including lysis of adhesions. PAST MEDICAL HISTORY: Please see list. PAST SURGICAL HISTORY: Please see list. MEDICATIONS: Please see list. ALLERGIES: Please see list. SOCIAL HISTORY: No illicit drug use FAMILY HISTORY: No reports of Crohn disease or ulcerative colitis. REVIEW OF ORGAN SYSTEMS: CONSTITUTIONAL: Denies any fever or chills. Denies recent weight loss or weight gain. HEENT: Denies any trouble with vision, hearing or nosebleeds. No difficulty swallowing. LYMPHATIC: The patient denies any lumps and bumps around the neck. ENDOCRINE: Denies any thyroid disorders. Denies any blood sugar glucose intolerance. RESPIRATORY: Denies pneumonia. Denies any troubles with breathing or dyspnea on exertion. CARDIOVASCULAR: Denies any chest pain, palpitations, or recent heart attacks. GASTROINTESTINAL: Denies heart burn, constipation or bright red blood per rectum. GENITOURINARY: Denies any blood in urine or increased urinary frequency. MUSCULOSKELETAL: Denies any back pain, stiffness, joint arthritis. NEUROLOGIC: Denies any numbness or tingling along the distal extremities. No seizure disorders or headaches. PSYCHIATRIC: Denies depression or suidical ideation. HEMATOLOGIC: Denies any abnormal bleeding or bruising. BREASTS: Denies any breast lumps, pain or nipple discharge. PHYSICAL EXAM: GENERAL: Well-developed pleasant male in no acute distress. HEENT: No scleral icterus. Extraocular movements grossly intact. Moist buccal mucosa. NECK: Supple without lymphadenopathy. CHEST: Unlabored respirations. Equal bilateral excursions. CARDIOVASCULAR: Regular rate and rhythm. Distal 2+ pulses. ABDOMEN: Soft, nondistended. Tender generalized abdominal pain. MUSCULOSKELETAL: No clubbing, cyanosis, or edema. SKIN: Well perfused. PSYCH: Alert and oriented to self, place and time ASSESSMENT: 1. Diffuse abdominal pain. 2. History of multiple abdominal surgeries. 3. Intra-abdominal adhesions. PLAN: 1. Robotic lysis of adhesions were described in detail including risk of injury to the intestine, need for further surgery, and open technique. 2. DVT prophylaxis. 3. Antibiotic prophylaxis. Past Medical History Past Medical History: Cancer, Musculoskeletal Disorder, Rheumatoid Arthritis (RA) Additional Past Medical History / Comment(s): states "thickness to wall of colon on CT scan",Hx of CA in Abd wall 2017/surgery;migraines, bilateral neuropathy(legs and hands)- legs can give out causing falls- last fall >1 yr, hx IBS, hx swine flu 2008-was INTUBATED, varicose veins, DDD. ? hypoglycemia History of Any Multi-Drug Resistant Organisms: MRSA Date of last positivie culture/infection: 06/2009 MDRO Source:: LUNGS Past Surgical History: Appendectomy, Bariatric Surgery, Section, Cholecystectomy, Hernia Repair, Tubal Ligation, Uterine Ablation Additional Past Surgical History / Comment(s): Laparoscopic misty-en-y gastric bypass with EGD. PEG tube/later removed, Tracheostomy 2008 when she had the swine flu. Panniculectomy 07/25/16, 3 ABDOMINAL hernias removed,c sections x2 CANCER REMOVED FROM ABD. WALL, COLONOSCOPY Past Anesthesia/Blood Transfusion Reactions: Motion Sickness, Postoperative Nausea & Vomiting (PONV) Additional Past Anesthesia/Blood Transfusion Reaction / Comment(s): Pt states she has never received blood. nausea with c sections Smoking Status: Former smoker - Past Family History Mother Family Medical History: Asthma, Congestive Heart Failure (CHF), COPD, Diabetes Mellitus, GERD/Reflux, Hypertension, Pneumonia, Sleep Apnea/CPAP/BIPAP Additional Family Medical History / Comment(s): varicose veins, enlarged heart,MS Father Family Medical History: Cancer Additional Family Medical History / Comment(s): colon and liver Medications and Allergies Home Medications Medication Instructions Recorded Confirmed Type Butalb/APAP/Caff 50-325-40Mg 1 tab PO Q6H PRN 05/29/18 02/01/24 History [Fioricet 50-325-40] Ergocalciferol [Vitamin D2 (1250 50,000 unit PO WEEKLY 12/13/23 02/01/24 History Mcg = 72188 Iu)] Multivit/Iron Sulf/Folic Acid 2 tab PO DAILY 12/13/23 02/01/24 History [Multivitamin with Iron] Vitamin A 10,000 unit PO DAILY 12/13/23 02/01/24 History Allergies Allergy/AdvReac Type Severity Reaction Status Date / Time meperidine HCl [From Demerol] Allergy Severe "BECAME Verified 02/01/24 11:22 BELIGERENT" Milk Containing Products Allergy Severe Nausea & Verified 02/01/24 11:22 (Dairy) Vomiting & [Dairy] Diarrhea guaifenesin [From Robitussin] Allergy Mild WHEEZING Verified 02/01/24 11:22 FROM COUGH SYRUP WITH CODEINE codeine Allergy Unknown Wheezing Verified 02/01/24 11:22 Iodinated Contrast Media Allergy Itching Verified 02/01/24 11:22 [Iodinated Contrast- Oral and IV Dye] propoxyphene Allergy Rash/Hives Verified 02/01/24 11:22 [From Darvocet-N] zonisamide [From Zonegran] Allergy Anaphylaxis Verified 02/01/24 11:22 aspirin AdvReac "MAKES Verified 02/01/24 11:22 BLOOD TOO THIN" NSAIDS (Non-Steroidal AdvReac DOES NOT Verified 02/01/24 11:22 Anti-Inflamma USE R/T BARIATRIC SX
[~2024-02-05 12:24] MED LIST changes: -DEXAMETHASONE SOD PHOSPHATE 4 MG/ML 1 ML VIAL IV ONE; -MIDAZOLAM 2 MG/2 ML VIAL IV PRN; -ONDANSETRON 4 MG/2 ML VIAL IVP ONE; +Pre Op ABX Message 1 EACH MISC MISCELLANE ONE; -SCOPOLAMINE 1.5MG/72HR PATCH TRANSDERM ONE; +fentaNYL (PF) 50 MCG/ML 2 ML AMP IV PRN
[2024-02-05] MEDS: IV FLUID CONTINUATION 1,000 ML IV ONE (13:23)
[2024-02-05] MEDS: LACTATED RINGERS 1,000 ML IV SCH (13:23)
[2024-02-05] MEDS: LIDOCAINE 1% (10MG/ML) FOR IV START INTRADERMA STA (13:25)
[2024-02-05] MEDS: DEXAMETHASONE SOD PHOSPHATE 4 MG/ML 1 ML VIAL IV ONE (13:27)
[2024-02-05] MEDS: ONDANSETRON 4 MG/2 ML VIAL IVP ONE (13:27)
[2024-02-05] MEDS: SCOPOLAMINE 1 MG/72 HR PATCH TRANSDERM STA (13:28)
[2024-02-05 13:32] LABS: Glucose,Whole Blood 80 mg/dL (70-110)
[2024-02-05] MEDS: MIDAZOLAM 2 MG/2 ML VIAL IV ONE (13:53)
[2024-02-05] MEDS: HEPARIN SODIUM,PORCINE 5,000 UNIT/ML 1 ML VIAL SQ PRN (14:02)
--- NOTE | 2024-02-05 14:12 | P.ANPRN ---
Procedure Note - Anesthesia - Nerve Block Performed Bilateral Transversus Abdominis Single Date of Procedure: 02/05/24 Procedure Start Time: 13:52 Procedure Stop Time: 14:00 Location of Patient: PreOp Indication: Acute Post-Operative Pain, Requested by Surgeon Specifically requested for management of pain by DrKierra: Janie Mishra Sedation Type: Sedate with meaningful contact maintained Preparation: Sterile Prep Position: Supine Needle Types: Facet Needle Gauge: 21 Ultrasound used to visualize needle placement: Yes Ultrasound used to observe medication spread: Yes Injectate: 0.5% Ropivacaine (see comment for volume) Blood Aspirated: No Pain Paresthesia on Injection Noted: No Resistance on Injection: Normal Image Stored and Saved: Yes Events: Uneventful and Well Tolerated (Ropivacaine 0.5% 15 mls+ 10 mls of NS on each side)
[2024-02-05] MEDS ORDERED: fentaNYL (PF) 50 MCG/ML 2 ML AMP ONE (15:09)
[2024-02-05] MEDS ORDERED: NEOSTIGMINE 1 MG/ML 10 ML VIAL ONE (15:09)
[2024-02-05] MEDS ORDERED: ROCURONIUM 10 MG/ML (5 ML VIAL) IV ONE (15:09)
[2024-02-05] MEDS ORDERED: ROPIVACAINE 5 MG/ML 30 ML VIAL ONE (15:09)
[2024-02-05] MEDS ORDERED: SODIUM CHLORIDE 0.9% (PF) 10 ML VIAL ONE (15:09)
[2024-02-05] MEDS ORDERED: LIDOCAINE 1% INJ 10MG/ML (20 ML MDV) ONE (15:09)
[2024-02-05] MEDS ORDERED: GLYCOPYRROLATE 0.2 MG/ML 2 ML VIAL ONE (15:09)
[2024-02-05] MEDS ORDERED: MIDAZOLAM 2 MG/2 ML VIAL ONE (15:09)
[2024-02-05] MEDS ORDERED: PROPOFOL 10 MG/ML 20 ML VIAL IV ONE (15:09)
[2024-02-05] MEDS ORDERED: HYDROmorphone (PF) 1 MG/ML ONE (15:09)
[2024-02-05] MEDS ORDERED: SUCCINYLCHOLINE CHLORIDE 200 MG/10 ML VIAL IV ONE (15:09)
[2024-02-05] MEDS: LIDOCAINE 1%-EPI 1:100,000 20 ML VIAL SQ ONE (15:37)
[2024-02-05] MEDS: LACTATED RINGERS 1,000 ML IV ONE (15:46)
[2024-02-05 17:17] VITALS: TEMP 98.4
[2024-02-05] MEDS: HYDROmorphone 0.5 MG/0.5 ML SYRINGE IVP STA (17:30)
[2024-02-05] MEDS: KETOROLAC 15 MG/ML 1 ML VIAL IVP STA (17:56)
[2024-02-05 19:22] VITALS: BP 103/68; PULSE 45; RESP 18
[2024-02-05] MEDS: SODIUM CHLORIDE 0.9% 1,000 ML IV ONE (19:22)
--- NOTE | 2024-02-05 20:29 | P.OP ---
Date of Procedure: 02/05/24 Description of Procedure: SURGEON: UZIEL THOMPSON MD PREOPERATIVE DIAGNOSES: 1. Epigastric abdominal pain with nausea vomiting 2. Mid abdomen abdominal pain, intractable 3. History of gastric bypass 4. History of intra-abdominal malignant sarcoma of the pelvis 5. Rheumatoid arthritis 6. History of gastrojejunal strictures of ulcers 7. Chronic migraines 8. Dysphagia 9. Bilateral lower extremity neuropathy 10. History of MRSA 11. History of multiple abdominal adhesions 12. History of tracheostomy 13. History of abdominal wall hernias 14. Postop nausea vomiting 15. Motion sickness 16. Generalized anxiety disorder 17. Bipolar disorder 18. Depressive disorder 19. Posttraumatic stress disorder 20. Remote tobacco abuse disorder POSTOPERATIVE DIAGNOSES: 1. Epigastric abdominal pain with nausea vomiting 2. Mid abdomen abdominal pain, intractable 3. History of gastric bypass 4. History of intra-abdominal malignant sarcoma of the pelvis 5. Rheumatoid arthritis 6. History of gastrojejunal strictures of ulcers 7. Chronic migraines 8. Dysphagia 9. Bilateral lower extremity neuropathy 10. History of MRSA 11. History of multiple abdominal adhesions 12. History of tracheostomy 13. History of abdominal wall hernias 14. Postop nausea vomiting 15. Motion sickness 16. Generalized anxiety disorder 17. Bipolar disorder 18. Depressive disorder 19. Posttraumatic stress disorder 20. Remote tobacco abuse disorder OPERATION: 1. Robotic-assisted da Liat Xi laparoscopic with lysis of adhesions 2. Robotic-assisted da Liat Xi laparoscopic reduction and repair of incarcerated incisional hernia repair, 4 x 2 cm epigastrium ESTIMATED BLOOD LOSS: 5 mL. SPECIMENS REMOVED: None. COMPLICATIONS: None. OPERATIVE FINDINGS: 1. Intermittent small bowel dilation lower pelvis reduced upon exploration 2. Petersons defect completely scarred 3. Jejunojejunostomy mesenteric defect completely scarred 4. No hepatomegaly or fatty liver disease with a sharp liver edge 5. No recurrent intrapelvic sarcoma, right pelvis 6. No bilateral inguinal hernia recurrence 7. Epigastric incisional hernia distal to the falciform ligament with incarceration, reduced and closed with primary repair 8. Moderate retroperitoneal retraction left upper quadrant and jejunojejunostomy due to adhesions, lysed INDICATIONS: The patient is a 48-year-old female who presents with epigastric abdominal pain including mid abdominal pain. Surgical intervention with diagn ostic laparoscopy, lysis of adhesions were described. Informed consent was obtained. Robotic assisted laparoscopic approach was described. Benefits and risks of the procedure including but not limited to bleeding, infection, injury to the small bowel was described. Informed consent was obtained. DESCRIPTION OF PROCEDURE: Patient was brought to the operating room, placed in supine position. After general induction, the abdomen had been prepped and draped in standard sterile fashion. The robotic da Lita XI system was primed. After a timeout protocol was performed, the patient had been prepped and draped in standard sterile fashion. The robot was docked along the right lateral abdomen. The patient was repositioned in with right side up. Please note prior to docking of the robot; however, a 5 mm 0 degrees laparoscopic trocar entry was performed along the left upper quadrant. The abdomen was insufflated to 15 mmHg pressure which she tolerated well. Diagnostic laparoscopy was performed. Next, three 8 mm robotic ports were placed along the right lateral abdominal wall. The camera 8-mm port was maintained along mid-lateral abdomen. Please note that the ports were placed at least 10 to 15 cm away from the target anatomy. Instruments including graspers and vessel sealer were interchanged by the claims assistant. I had sat at the console. No recurrent bilateral inguinal hernia was identified or recurrent malignant sarcoma of the right pelvis. No recurrent bilateral inguinal hernias were identified. The small bowel from the misty limb to distal ileum was inspected. The small bowel was investigated from the terminal ileum to the ligament of Treitz with finding of redundant mesentery with intermittent small bowel dilation reduced with retraction. Petersons defect was completely scarred. Jejunojejunostomy mesenteric defect was completely scarred. Abnormal adhesions to the jejunojejunostomy was identified retracting towards the left upper quadrant retroperitoneum at the location of pain and divided using vessel sealer. The terminal ileum and cecum was unremarkable. Defect along the epigastrium from prior incision was found with incarcerated falciform ligament and reduced. Incisional hernia was closed primarily using #1 V-Loc, nonabsorbable of 4 x 2 cm. The robot was undocked. All pneumoperitoneum instruments were evacuated from the abdominal cavity. The incisions were reapproximated using 4-0 Monocryl in an interrupted subcuticular fashion. Please note along the trocar sites, local anesthetic was placed as a field block prior to insertion of all instruments. Dermabond was applied to the skin. At the end of the procedure needle, sponge, and instrument count had been verified correct by the rn medical surgical. The patient was transferred to postanesthesia care unit in stable condition. Plan - Discharge Summary Discharge Rx Participant: No New Discharge Prescriptions: New Simethicone 40 mg/0.6 ml Drops [Mylicon Drops] 40 mg PO Q6HR PRN #30 ml PRN Reason: Abdominal Distention Acetaminophen Tab [Tylenol Tab] 1,000 mg PO Q6HR PRN #30 tablet PRN Reason: Pain Continue Butalb/APAP/Caff 50-325-40Mg [Fioricet 50-325-40] 1 tab PO Q6H PRN PRN Reason: migraines Vitamin A 10,000 unit PO DAILY Multivit/Iron Sulf/Folic Acid [Multivitamin with Iron] 2 tab PO DAILY Ergocalciferol [Vitamin D2 (1250 Mcg = 79463 Iu)] 50,000 unit PO WEEKLY Discharge Medication List Butalb/APAP/Caff 50-325-40Mg [Fioricet 50-325-40] 1 tab PO Q6H PRN 05/29/18 [History] Ergocalciferol [Vitamin D2 (1250 Mcg = 44089 Iu)] 50,000 unit PO WEEKLY 12/13/23 [History] Multivit/Iron Sulf/Folic Acid [Multivitamin with Iron] 2 tab PO DAILY 12/13/23 [History] Vitamin A 10,000 unit PO DAILY 12/13/23 [History] Acetaminophen Tab [Tylenol Tab] 1,000 mg PO Q6HR PRN #30 tablet 02/05/24 [Rx] Simethicone 40 mg/0.6 ml Drops [Mylicon Drops] 40 mg PO Q6HR PRN #30 ml 02/05/24 [Rx] Follow up [facility]ment(s[facility]Ref[facility] [place] [facility] 02/09/24 9:00 am Patient Instructions/Handouts: *Surgery [facility] - (Anesthesia) Discharge Instructions Outpatient Surgery, *Surgery [facility] - Scopalamine Patch Instructions, Laparoscopic Herniorrhaphy (IP), Deep Vein Thrombosis Prevention (GEN), Lysis of Abdominal Adhesions (DC) Activity/Diet/Wound Care/Special Instructions: No lifting for 4 pounds in 4 weeks, Mar 07 NO LONG DRIVES OR AIRPLANE RIDES OVER 60 MINUTES FOR THE NEXT 2 WEEKS DUE TO HIGH RISK OF PULMONARY EMBOLISM/DVTs Using antibacterial soap. May shower. No bathtub soaks for 2 weeks, Feb 12 Wear abdominal binder daily for comfort except for showering. Use ice along incisions for today to prevent swelling. Use Tylenol, simethicone scheduled for the next 24-48 hours for best pain relief. Discharge Disposition: HOME SELF-CARE
== END 2024-02-05 19:44 | disposition home or self-care (01) ==
LOC: OR 12:24
PROVIDERS: ATTEND Surgery Plastic and Reconstructive Surgery
DX: K43.0 Incisional hernia with obstruction, without gangrene (principal); K66.0 Peritoneal adhesions (postprocedural) (postinfection); M06.9 Rheumatoid arthritis, unspecified; K58.9 Irritable bowel syndrome, unspecified; G89.18 Other acute postprocedural pain; G43.909 Migraine, unspecified, not intractable, without status migrainosus; F43.10 Post-traumatic stress disorder, unspecified; F41.1 Generalized anxiety disorder; F31.9 Bipolar disorder, unspecified; Z85.831 Personal history of malignant neoplasm of soft tissue; Z86.14 Personal history of Methicillin resistant Staphylococcus aureus infection; Z87.891 Personal history of nicotine dependence; Z88.2 Allergy status to sulfonamides; Z88.5 Allergy status to narcotic agent; Z88.6 Allergy status to analgesic agent; Z90.49 Acquired absence of other specified parts of digestive tract; Z91.041 Radiographic dye allergy status; Z98.51 Tubal ligation status; Z98.84 Bariatric surgery status; Z98.890 Other specified postprocedural states
CPT/HCPCS: 81025; 64488; 49592; J2250; J0330; J1644; J1100; J2710; J0690; J2405; J2001; J3010; J1170 ×2; J2795; J1885; J2704; J1596

== ENCOUNTER → 2024-12-31 | Outpatient (CLI) | payer BC ==
--- NOTE | 2024-12-31 07:43 | MM ---
Reason for Exam: Screening (asymptomatic). Last mammogram was performed 3 year(s) and 11 month(s) ago. Patient History: Menarche at age 15. First Full-Term at age 25. Perimenopausal. Other cancer, age 42. Risk Values: Tequila 5 year model risk: 0.7%. NCI Lifetime model risk: 7.6%. Prior Study Comparison: 09/01/2017 Bilateral Screening Mammogram, [facility]. 09/13/2018 Bilateral Screening Mammogram, [facility]. 01/14/2021 Bilateral Screening Mammogram, [facility]. Tissue Density: There are scattered areas of fibroglandular density. Findings: Analyzed By CAD. Right breast: There is no suspicious group of microcalcifications or new suspicious mass. Benign-appearing calcifications right breast. Left breast: There is no suspicious group of microcalcifications or new suspicious mass. Benign-appearing calcifications left breast. Overall Assessment: Benign, BI-RAD 2 Management: Screening Mammogram of both breasts in [address] [facility] will attempt to contact patient to return for supplemental views and ultrasound if indicated. Patient should continue monthly self-breast exams. A clinical breast exam by your physician is recommended on an annual basis. This exam should not preclude additional follow-up of suspicious palpable abnormalities. Note on Tequila scores and lifetime risk: 1. A Tequila score greater than 3% is considered moderate risk. If this is the case, consider specialist referral to assess eligibility for a risk reducing agent. 2. If overall lifetime risk for the development of breast cancer is 20% or higher, the patient may qualify for future screening with alternating mammogram and breast MRI. [facility], , 12/31/2024 7:40 AM. Electronically signed and approved by: Romain Camacho DO
== END | disposition home or self-care (01) ==
LOC: RADMAMWWP 06:58
PROVIDERS: ATTEND Family Medicine
DX: Z12.31 Encounter for screening mammogram for malignant neoplasm of breast (principal); R92.323 Mammographic fibroglandular density, bilateral breasts
CPT/HCPCS: 77067